=== PATIENT | female | born 1935 | race Caucasian/White ===

== ENCOUNTER 2018-07-16 09:58 | Observation (INO) | payer MEDICARE ==
[~2018-07-16] VITALS: Ht 157.5 cm; Wt 106.1 kg
[~2018-07-16 09:58] MED LIST: FOLIC ACID1 MG PO; FUROSEMIDE40 MG PO; HYDROXYCHLOROQ200 MG PO; LISINOPRIL10 MG PO; METHOTREXATE2.5 MG PO; NAPROXEN250 MG PO; ORENCIA125 MG/1 M SC; TRADJENTA5 MG PO; TRAMADOL100 MG; TRIAMCINOLONE A15 G1 SUBD; ULTRAM 50MG50 MG PO; Z.0.GABAPENTIN300 MG PO; Z.0.HYDROXYCHLOROQ20 PO; Z.0.LEVOTHYROXINE100 PO; Z.0.PANTOPRAZOLE SO4 PO; Z.0.SIMVASTATIN20 MG PO; Z.0.SPIRONOLACTONE25 PO; Z.1.TIZANIDINE HCL4 PO; [UNRECOGNIZED DRUG - OTHER]; [UNRECOGNIZED DRUG - OTHER] PO; [UNRECOGNIZED DRUG - OTHER] PO
--- OUTSIDE RECORDS SUMMARY | 2018-07-16 10:02 | XMS REPORT ---
Author Author Adonis Chan [facility] eClinicalWorks Address Unknown Phone Unavailable Care Team Providers Care Felt Tipping Machine Tender Name Role Phone Adonis Chan CP Unavailable Allergies No Known Allergies Problems Problem Type Condition Code Onset Dates Condition Status Problem Other senior living (current) drug therapy Z79.899 Active Problem Rheumatoid arthritis of multiple sites without rheumatoid factor M06.09 Active Problem Age-related osteoporosis without current pathological fracture M81.0 Active Problem Cervical radiculopathy at C7 M54.12 Active Problem Shortness of breath R06.02 Active Problem Primary osteoarthritis involving multiple joints M15.0 Active Problem Postmenopausal Z78.0 Active Problem Age related osteoporosis M81.0 Active Problem Low vitamin D level E55.9 Active Medications Medication Code System Code Instructions Start Date End Date Status Dosage ORENCIA SQ NDC 0 125MG SUBCUTANEOUSLY ONCE A WEEK Feb 23, 2017 Active 125MG Results No Known Results Summary Purpose eClinicalWorks Submission
--- OUTSIDE RECORDS SUMMARY | 2018-07-16 10:02 | XMS REPORT | Continuity of Care Document ---
Author Author [facility] Interface Address Unknown Phone Unavailable Problems Problem Status Onset Date Classification Date Reported Comments Source Age-related osteoporosis without current pathological fracture Active Problem 07/07/2018 Zoran Barton Other senior living drug therapy Active Problem 07/07/2018 Zoran Barton Rheumatoid arthritis of multiple sites without rheumatoid factor Active Problem 07/07/2018 Zoran Barton Cervical radiculopathy at C7 Active Problem 07/07/2018 Zoran Barton Shortness of breath Active Problem 07/07/2018 Zoran Barton Primary osteoarthritis involving multiple joints Active Problem 07/07/2018 Zoran Barton Postmenopausal Active Problem 07/07/2018 Zoran Barton Age related osteoporosis Active Problem 07/07/2018 Zoran Barton Low vitamin D level Active Problem 07/07/2018 Zoran Barton Trigger finger, right ring finger Active Problem 07/07/2018 Zoran Barton Trigger finger, right index finger Active Problem 07/07/2018 Zoran Barton Osteoporosis Active Problem 07/07/2018 Zoran Barton Medications Medication Details Route Status Patient Instructions Ordering Provider Order Date Source Folic Acid 1 tablet Orally Active 1MG Orally Once a day Dustin 03/24/2018 Zoran Barton Medrol 1 tablet with food or milk in the morning Orally Active 4 MG Orally Dustin 11/18/2017 Zoran Barton ORENCIA SQ 125mg SUBCUTANEOUSLY Active 125MG SUBCUTANEOUSLY ONCE A WEEK Dustin 07/26/2017 Zoran Barton Gabapentin 3 capsules Orally Active 300 MG Orally TWO times a day Dustin 06/29/2017 Zoran Barton Methotrexate 6 tablet Orally Active 2.5 MG Orally Once a week Dustin 06/27/2017 Zoran Barton ORENCIA SQ 125mg SUBCUTANEOUSLY Active 125MG SUBCUTANEOUSLY ONCE A WEEK Dustin 02/23/2017 Zoran Barton ORENCIA SQ 125MG SUBCUTANEOUSLY Active 125MG SUBCUTANEOUSLY ONCE A WEEK Barton 02/09/2017 Zoran Barton Folic Acid 1 tablet Orally Active 1 MG Orally Once a day Dustin 12/17/2016 Zoran Barton Methotrexate take 5 tablets Orally Active 2.5MG Orally ONCE A WEEK [place] 09/17/2016 Zoran Barton Vitamin D (Ergocalciferol) 1 capsule Orally Active 97811 UNIT Orally One a week Dustin 07/09/2016 Zoran Barton Gabapentin 3 capsules Orally Active 300 MG Orally TWO times a day [place] 04/05/2016 Zoran Barton ORENCIA SQ 125mg SUBCUTANEOUSLY Active 125MG SUBCUTANEOUSLY ONCE A WEEK Dustin 02/06/2016 Zoran Barton Furosemide 1 tablet NA Active 20 mg once a day Dustin Zoran Barton Pantoprazole Sodium 1 tablet NA Active 40mg once a day Dustin Zoran Barton Tizanidine HCl 1 tablet Orally Active 4mg Orally twice a day Dustin Zoran Barton Tramadol one tablet orally Active 50 mg orally needed Dustin Zoran Barton Prolia one NA Active 60 mg q 6 months Dustin Zoran Barton Levothyroxine Sodium 1 tablet every morning on an empty stomach Orally Active 100 MCG Orally Once a day Dustin Zoran Barton Simvastatin 1 tablet NA Active 40 mg once a day Dustin Zoran Barton Spironolactone 1 tablet NA Active 25mg once a day Dustin Zoran Barton Tradjenta 1 tablet Orally Active 5 MG Orally Once a day Dustin Zoran Barton Tizanidine HCl TAKE 1 TABLET BY MOUTH TWICE DAILY NA Active 4MG Zoran Barton Folic Acid 1 tablet Orally Active 1MG Orally Once a day Dustin Zoran Barton Gabapentin TAKE 3 CAPSULES BY MOUTH TWICE DAILY Orally Active 300MG Orally Twice a day Dustin Zoran Barton ORENCIA SQ 125mg SUBCUTANEOUSLY Active 125MG SUBCUTANEOUSLY ONCE A WEEK Dustin Zoran Barton Methotrexate 6 tablet Orally Active 2.5 MG Orally Once a week D[place] Zoran Barton Levothyroxine Sodium 1 tablet every morning on an empty stomach Orally Active 88 MCG Orally Once a day Dustin Zoran Barton Tramadol one tablet orally Active 50 mg orally needed Dustin Zoran Barton Gabapentin 3 capsules Orally Active 300 MG Orally TWO times a day Dustin Zoran Barton Allergies, Adverse Reactions, Alerts Substance Category Reaction Severity Reaction type Status Date Reported Comments Source Vicodin Adverse Reaction Info Not Available Adverse Reaction Active 04/26/2018 Zoran Barton Quinidine Sulfate Adverse Reaction hives Adverse Reaction Active 04/26/2018 Zoran Barton Azulfidine Adverse Reaction Info Not Available Adverse Reaction Active 04/26/2018 Zoran Barton Immunizations Immunization Date Given Site Status Last Updated Comments Source Results Order Name Results Value Reference Range Date Interpretation Comments Source Vital Signs Vital Sign Value Date Comments Source Weight 223.2 04/26/2018 Zoran Barton Height 61 04/26/2018 Zoran Barton Temperature Oral (F) 97.6 F 04/26/2018 Zoran Barton Heart Rate 64 04/26/2018 Zoran Barton Diastolic (mm Hg) 60 04/26/2018 Zoran Barton Systolic (mm Hg) 118 04/26/2018 Zoran Barton Weight 236.1 01/25/2018 Zoran Barton Height 61 01/25/2018 Zoran Barton Temperature Oral (F) 97.0 F 01/25/2018 Zoran Barton Heart Rate 70 01/25/2018 Zoran Barton Diastolic (mm Hg) 60 01/25/2018 Zoran Barton Systolic (mm Hg) 130 01/25/2018 Zoran Barton Weight 239 11/18/2017 Zoran Barton Height 61 11/18/2017 Zoran Barton Temperature Oral (F) 97.1 F 11/18/2017 Zoran Barton Heart Rate 72 11/18/2017 Zoran Barton Diastolic (mm Hg) 68 11/18/2017 Zoran Barton Systolic (mm Hg) 122 11/18/2017 Zoran Barton Weight 243.1 07/22/2017 Zoran Barton Height 61.5 07/22/2017 Zoran Barton Temperature Oral (F) 97.2 F 07/22/2017 Zoran Barton Heart Rate 74 07/22/2017 Zoran Barton Diastolic (mm Hg) 70 07/22/2017 Zoran Barton Systolic (mm Hg) 126 07/22/2017 Zoran Barton Weight 239.8 04/19/2017 Zoran Barton Height 62 04/19/2017 Zoran Barton Temperature Oral (F) 97.5 F 04/19/2017 Zoran Barton Heart Rate 70 04/19/2017 Zoran Barton Diastolic (mm Hg) 62 04/19/2017 Zoran Barton Systolic (mm Hg) 122 04/19/2017 Zoran Barton Weight 241 01/18/2017 Zoran Barton Height 61 01/18/2017 Zoran Barton Temperature Oral (F) 97.6 F 01/18/2017 Zoran Barton Heart Rate 68 01/18/2017 Zoran Barton Diastolic (mm Hg) 74 01/18/2017 Zoran Barton Systolic (mm Hg) 124 01/18/2017 Zoran Barton Encounters Location Location Details Encounter Type Encounter Number Reason For Visit Attending Provider ADM Date DC Date Status Source Procedures Procedure Code Date Perfomer Comments Source
--- OUTSIDE RECORDS SUMMARY | 2018-07-16 10:02 | XMS REPORT ---
Author Author Adonis Chan [facility] eClinicalWorks Address Unknown Phone Unavailable Care Team Providers Care Cargo Service Supervisor Name Role Phone Adonis Chan CP Unavailable Allergies No Known Allergies Problems Problem Type Condition Code Onset Dates Condition Status Problem Other correction (current) drug therapy Z79.899 Active Problem Primary osteoarthritis involving multiple joints M15.0 Active Problem Postmenopausal Z78.0 Active Assessment Rheumatoid arthritis of multiple sites without rheumatoid factor M06.09 Active Problem Rheumatoid arthritis of multiple sites without rheumatoid factor M06.09 Active Problem Trigger finger, right ring finger M65.341 Active Problem Shortness of breath R06.02 Active Problem Trigger finger, right index finger M65.321 Active Problem Age related osteoporosis M81.0 Active Problem Low vitamin D level E55.9 Active Problem Age-related osteoporosis without current pathological fracture M81.0 Active Problem Cervical radiculopathy at C7 M54.12 Active Medications Medication Code System Code Instructions Start Date End Date Status Dosage Folic Acid [facility] 39737910250 1MG Orally Once a day Active 1 tablet Gabapentin [facility] 94469141753 300MG Orally Twice a day Active TAKE 3 CAPSULES BY MOUTH TWICE DAILY Results No Known Results Summary Purpose eClinicalWorks Submission
--- OUTSIDE RECORDS SUMMARY | 2018-07-16 10:02 | XMS REPORT ---
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
--- OUTSIDE RECORDS SUMMARY | 2018-07-16 10:02 | XMS REPORT ---
Author Author Gunner Barton Organization eClinicalWorks Address Unknown Phone Unavailable Care Team Providers Care Accountant Bookkeeper Name Role Phone Gunner Barton CP Unavailable Allergies No Known Allergies Problems Problem Type Condition Code Onset Dates Condition Status Problem Postmenopausal Z78.0 Active Problem Low vitamin D level E55.9 Active Problem Primary osteoarthritis involving multiple joints M15.0 Active Problem Rheumatoid arthritis of multiple sites without rheumatoid factor M06.09 Active Problem Other jail (current) drug therapy Z79.899 Active Problem Trigger finger, right index finger M65.321 Active Problem Trigger finger, right ring finger M65.341 Active Problem Osteoporosis M81.0 Active Problem Cervical radiculopathy at C7 M54.12 Active Problem Age related osteoporosis M81.0 Active Problem Shortness of breath R06.02 Active Problem Age-related osteoporosis without current pathological fracture M81.0 Active Medications No Known Medications Results No Known Results Summary Purpose eClinicalWorks Submission
--- OUTSIDE RECORDS SUMMARY | 2018-07-16 10:02 | XMS REPORT ---
Author Author Adonis Chan [facility] eClinicalWorks Address Unknown Phone Unavailable Care Team Providers Care Loan Representative Name Role Phone Adonis Chan Unavailable Allergies, Adverse Reactions, Alerts Substance Reaction Event Type Vicodin Info Not Available Drug Allergy Quinidine Sulfate hives Drug Allergy Azulfidine Info Not Available Drug Allergy Problems Problem Type Condition Code Onset Dates Condition Status Problem Postmenopausal Z78.0 Active Problem Low vitamin D level E55.9 Active Problem Primary osteoarthritis involving multiple joints M15.0 Active Problem Trigger finger, right index finger M65.321 Active Problem Trigger finger, right ring finger M65.341 Active Problem Osteoporosis M81.0 Active Problem Cervical radiculopathy at C7 M54.12 Active Problem Age related osteoporosis M81.0 Active Problem Shortness of breath R06.02 Active Problem Age-related osteoporosis without current pathological fracture M81.0 Active Assessment Rheumatoid arthritis of multiple sites without rheumatoid factor M06.09 Active Assessment Osteoporosis M81.0 Active Problem Rheumatoid arthritis of multiple sites without rheumatoid factor M06.09 Active Assessment Other [facility] (current) drug therapy Z79.899 Active Problem Other [facility] (current) drug therapy Z79.899 Active Medications Medication Code System Code Instructions Start Date End Date Status Dosage Tizanidine HCl [facility] 65208315954 4MG Active TAKE 1 TABLET BY MOUTH TWICE DAILY Levothyroxine Sodium ND 88432421337 100 MCG Orally Once a day Active 1 tablet every morning on an empty stomach Folic Acid ND 87809633356 1MG Orally Once a day Active 1 tablet Gabapentin ND 41368993938 300MG Orally Twice a day Active TAKE 3 CAPSULES BY MOUTH TWICE DAILY ORENCIA SQ NDC 0 125MG SUBCUTANEOUSLY ONCE A WEEK Active 125mg Simvastatin ND 90296311592 40 mg once a day Active 1 tablet Spironolactone ND 61731893436 25mg once a day Active 1 tablet Furosemide ND 93890523033 20 mg once a day Active 1 tablet Tradjenta [facility] 52474684834 5 MG Orally Once a day Active 1 tablet Methotrexate [facility] 75302614699 2.5 MG Orally Once a week Active 6 tablet Pantoprazole Sodium [facility] 04823875289 40mg once a day Active 1 tablet Prolia [facility] 71752423790 60 mg q 6 months Active one Tramadol NDC 0 50 mg orally needed Active one tablet Vital Signs Date/Time: Jan 25, 2018 BMI 44.61 Index Weight 236.1 lbs Height 61 in Temperature 97.0 F Cardiac Monitoring Heart Rate 70 /min Blood Pressure Diastolic 60 mm Hg Blood Pressure Systolic 130 mm Hg Results No Known Results Summary Purpose eClinicalWorks Submission
--- OUTSIDE RECORDS SUMMARY | 2018-07-16 10:02 | XMS REPORT ---
Author Author Adonis Chan [facility] eClinicalWorks Address Unknown Phone Unavailable Care Team Providers Care Electrical Design Technologist Name Role Phone Adonis Chan CP Unavailable Allergies No Known Allergies Problems Problem Type Condition Code Onset Dates Condition Status Problem Other care home (current) drug therapy Z79.899 Active Problem Rheumatoid [...] Date End Date Status Dosage Tizanidine HCl [facility] 68886641400 4mg Orally twice a day Active 1 tablet Results No Known Results Summary Purpose eClinicalWorks Submission
--- OUTSIDE RECORDS SUMMARY | 2018-07-16 10:02 | XMS REPORT ---
Author Author Adonis Chan [facility] eClinicalWorks Address Unknown Phone Unavailable Care Team Providers Care Group Therapy Counselor Name Role Phone Adonis Chan CP Unavailable Allergies No Known Allergies Problems Problem Type Condition Code Onset Dates Condition Status Problem Other assisted (current) drug therapy Z79.899 Active Problem Rheumatoid [...] NDC 0 125MG SUBCUTANEOUSLY ONCE A WEEK July 26, 2017 Active 125mg Results No Known Results Summary Purpose eClinicalWorks Submission
--- OUTSIDE RECORDS SUMMARY | 2018-07-16 10:02 | XMS REPORT ---
Author Author Gunner Barton Organization eClinicalWorks Address Unknown Phone Unavailable Care Team Providers Care Registered Dental Assistant Name Role Phone Gunner Barton CP Unavailable Allergies No Known Allergies Problems Problem Type Condition Code Onset Dates Condition Status Problem Postmenopausal Z78.0 Active Problem Low vitamin D level E55.9 Active Problem Primary osteoarthritis involving multiple joints M15.0 Active Problem Rheumatoid arthritis of multiple sites without rheumatoid factor M06.09 Active Problem Other skilled nursing (current) drug therapy Z79.899 Active Problem Trigger [...]
--- OUTSIDE RECORDS SUMMARY | 2018-07-16 10:02 | XMS REPORT ---
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
--- OUTSIDE RECORDS SUMMARY | 2018-07-16 10:02 | XMS REPORT ---
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
--- OUTSIDE RECORDS SUMMARY | 2018-07-16 10:02 | XMS REPORT ---
Author Author Adonis Chan [facility] eClinicalWorks Address Unknown Phone Unavailable Care Team Providers Care Loan Processing Supervisor Name Role Phone Adonis Chan Unavailable Allergies, Adverse Reactions, Alerts Substance Reaction Event Type Vicodin Info Not Available Drug Allergy Quinidine Sulfate hives Drug Allergy Azulfidine Info Not Available Drug Allergy Problems Problem Type Condition Code Onset Dates Condition Status Assessment Age-related osteoporosis without current pathological fracture M81.0 Active Problem Other [facility] (current[facility] drug therapy Z79.899 Active Problem Rheumatoid arthritis of multiple sites without rheumatoid factor M06.09 Active Assessment Rheumatoid arthritis of multiple sites [...] Instructions Start Date End Date Status Dosage Methotrexate [facility] 76202729998 2.5 MG Orally Once a week June 27, 2017 Active 6 tablet Tizanidine HCl ND 24207188029 4mg Orally twice a day Active 1 tablet Pantoprazole Sodium ND 89466139080 40mg once a day Active 1 tablet Tradjenta ND 28104232168 5 MG Orally Once a day Active 1 tablet Tramadol NDC 0 50 mg orally needed Active one tablet Prolia ND 51367729657 60 mg q 6 months Active one Furosemide ND 51636312074 20 mg once a day Active 1 tablet Simvastatin ND 95504744581 40 mg once a day Active 1 tablet Folic Acid ND 15306094157 1 MG Orally Once a day Dec 17, 2016 Active 1 tablet Levothyroxine Sodium ND 36517526480 100 MCG Orally Once a day Active 1 tablet every morning on an empty stomach ORENCIA SQ NDC 0 125MG SUBCUTANEOUSLY ONCE A WEEK Feb 23, 2017 Active 125mg Gabapentin [facility] 92763394584 300 MG Orally TWO times a day June 29, 2017 Active [address] [facility] 16499047426 25mg once a day Active 1 tablet Vital Signs Date/Time: July 22, 2017 BMI 45.18 Index Weight 243.1 lbs Height 61.5 in Temperature 97.2 F Cardiac Monitoring Heart Rate 74 /min Blood Pressure Diastolic 70 mm Hg Blood Pressure Systolic 126 mm Hg Results No Known Results Summary Purpose eClinicalWorks Submission
--- OUTSIDE RECORDS SUMMARY | 2018-07-16 10:02 | XMS REPORT ---
Author Author Adonis Chan [facility] eClinicalWorks Address Unknown Phone Unavailable Care Team Providers Care Pt Skilled Name Role Phone Adonis Chan CP Unavailable Allergies No Known Allergies Problems Problem Type Condition Code Onset Dates Condition Status Problem Other correction (current) drug therapy Z79.899 Active Problem Rheumatoid [...]
--- OUTSIDE RECORDS SUMMARY | 2018-07-16 10:02 | XMS REPORT ---
Author Author Adonis Chan [facility] eClinicalWorks Address Unknown Phone Unavailable Care Team Providers Care Heel Scourer Name Role Phone Adonis Chan Unavailable Allergies, Adverse Reactions, Alerts Substance Reaction Event Type Vicodin Info Not Available Drug Allergy Quinidine Sulfate hives Drug Allergy Azulfidine Info Not Available Drug Allergy Problems Problem Type Condition Code Onset Dates Condition Status Assessment Age-related osteoporosis without current pathological fracture M81.0 Active Problem Other residential (current) drug therapy Z79.899 Active Problem Rheumatoid arthritis of multiple sites without rheumatoid factor M06.09 Active Problem Age-related osteoporosis without current pathological fracture M81.0 Active Problem Cervical radiculopathy at C7 M54.12 Active Problem Shortness of breath R06.02 Active Problem Primary osteoarthritis involving multiple joints M15.0 Active Problem Postmenopausal Z78.0 Active Problem Age related osteoporosis M81.0 Active Problem Low vitamin D level E55.9 Active Assessment Shortness of breath R06.02 Active Assessment Other residential (current) drug therapy Z79.899 Active Assessment Rheumatoid arthritis of multiple sites without rheumatoid factor M06.09 Active Medications Medication Code System Code Instructions Start Date End Date Status Dosage ORENCIA SQ NDC 0 125MG SUBCUTANEOUSLY ONCE A WEEK Feb 06, 2016 Active 125mg Furosemide ND 29726799483 20 mg once a day Active 1 tablet Pantoprazole Sodium ND 18716263706 40mg once a day Active 1 tablet Tizanidine HCl ND 66296512478 4mg twice a day Active 1 tablets Tramadol NDC 0 50 mg orally needed Active one tab Methotrexate ND 28515163070 2.5MG Orally ONCE A WEEK September 17, 2016 Active take 5 tablets Prolia ND 10890284427 60 mg q 6 months Active one Levothyroxine Sodium ND 18628563384 100 MCG Orally Once a day Active 1 tablet every morning on an empty stomach Simvastatin ND 29395721743 40 mg once a day Active 1 tablet Spironolactone ND 99362282091 25mg once a day Active 1 tablet Tradjenta [facility] 49756675298 5 MG Orally Once a day Active 1 tablet Gabapentin [facility] 23099320060 300 MG Orally TWO times a day Apr 05, 2016 Active 3 capsules Folic Acid [facility] 08538351007 1 MG Orally Once a day Dec 17, 2016 Active 1 tablet Vitamin D (Ergocalciferol) [facility] 17480393235 96483 UNIT Orally One a week July 09, 2016 Active 1 capsule Vital Signs Date/Time: Jan 18, 2017 BMI 45.53 Index Weight 241 lbs Height 61 in Temperature 97.6 F Cardiac Monitoring Heart Rate 68 /min Blood Pressure Diastolic 74 mm Hg Blood Pressure Systolic 124 mm Hg Results No Known Results Summary Purpose eClinicalWorks Submission
--- OUTSIDE RECORDS SUMMARY | 2018-07-16 10:02 | XMS REPORT ---
Author Author Adonis Chan [facility] eClinicalWorks Address Unknown Phone Unavailable Care Team Providers Care Cone Runner Name Role Phone Adonis Chan CP Unavailable Allergies No Known Allergies Problems Problem Type Condition Code Onset Dates Condition Status Problem Other [facility] (current) [...] Instructions Start Date End Date Status Dosage Gabapentin [facility] 76410463293 300 MG Orally TWO times a day June 29, 2017 Active 3 capsules Results No Known Results Summary Purpose eClinicalWorks Submission
--- OUTSIDE RECORDS SUMMARY | 2018-07-16 10:02 | XMS REPORT ---
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
--- OUTSIDE RECORDS SUMMARY | 2018-07-16 10:02 | XMS REPORT ---
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
--- OUTSIDE RECORDS SUMMARY | 2018-07-16 10:02 | XMS REPORT ---
Author Author Adonis Chan Organization [employer] Address Unknown Phone Unavailable Care Team Providers Care Manager Strategic Alliances Name Role Phone Adonis Chan CP Unavailable Allergies No Known Allergies Problems Problem Type Condition Code Onset Dates Condition Status Assessment Rheumatoid arthritis of multiple sites without rheumatoid factor M06.09 Active Problem Other [facility] (current) drug therapy Z79.899 Active Problem Rheumatoid [...] Start Date End Date Status Dosage Methotrexate [facility] 2] 67495165017 2.5 MG Orally Once a week June 27, 2017 Active 6 tablet Gabapentin [facility] [place]NOTE 2] 25748623814 300 MG Orally TWO times a day June 29, 2017 Active 3 capsules Results No Known Results Summary Purpose eClinicalWorks Submission
--- OUTSIDE RECORDS SUMMARY | 2018-07-16 10:02 | XMS REPORT ---
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
--- OUTSIDE RECORDS SUMMARY | 2018-07-16 10:02 | XMS REPORT ---
Author Author Adonis Chan [facility] [employer] Address Unknown Phone Unavailable Care Team Providers Care Salt Washer Name Role Phone Adonis Chan Unavailable Allergies, Adverse Reactions, Alerts Substance Reaction Event Type Vicodin Info Not Available Drug Allergy Quinidine Sulfate hives Drug Allergy Azulfidine Info Not Available Drug Allergy Problems Problem Type Condition Code Onset Dates Condition Status Problem Other jail (current) drug therapy Z79.899 Active Problem Primary osteoarthritis involving multiple joints M15.0 Active Problem Postmenopausal Z78.0 Active Problem Trigger finger, right ring finger M65.341 Active Problem Shortness of breath R06.02 Active Problem Trigger finger, right index finger M65.321 Active Problem Age related osteoporosis M81.0 Active Problem Low vitamin D level E55.9 Active Problem Age-related osteoporosis without current pathological fracture M81.0 Active Problem Cervical radiculopathy at C7 M54.12 Active Assessment Age related osteoporosis M81.0 Active Assessment 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 treater (current) drug therapy Z79.899 Active Assessment Trigger finger, right ring finger M65.341 Active Assessment Rheumatoid arthritis of multiple sites without rheumatoid factor M06.09 Active Assessment Trigger finger, right index finger M65.321 Active Problem Rheumatoid arthritis of multiple sites without rheumatoid factor M06.09 Active Medications Medication Code System Code Instructions Start Date End Date Status Dosage Folic Acid [facility] 22577777364 1MG Active TAKE ONE TABLET BY MOUTH ONCE DAILY Levothyroxine Sodium ND 51008183230 100 MCG Orally Once a day Active 1 tablet every morning on an empty stomach Furosemide ND 56201146810 20 mg once a day Active 1 tablet Spironolactone ND 26798916009 25mg once a day Active 1 tablet Prolia ND 96892147216 60 mg q 6 months Active one Simvastatin ND 97705840845 40 mg once a day Active 1 tablet Pantoprazole Sodium ND 74365614200 40mg once a day Active 1 tablet Tizanidine HCl [facility] 82490448278 4MG Active TAKE 1 TABLET BY MOUTH TWICE DAILY Tradjenta [facility] 08665471192 5 MG Orally Once a day Active 1 tablet Tramadol NDC 0 50 mg orally needed Active one tablet ORENCIA SQ NDC 0 125MG SUBCUTANEOUSLY ONCE A WEEK Active 125mg Medrol [facility] 70026911228 4 MG Orally Nov 18, 2017 Dec 18, 2017 Active 1 tablet with food or milk in the morning Methotrexate [facility] 76406454563 2.5 MG Orally Once a week Active 6 tablet Gabapentin [facility] 67890290279 300 MG Orally TWO times a day Active 3 capsules Vital Signs Date/Time: Nov 18, 2017 BMI 45.15 Index Weight 239 lbs Height 61 in Temperature 97.1 F Cardiac Monitoring Heart Rate 72 /min Blood Pressure Diastolic 68 mm Hg Blood Pressure Systolic 122 mm Hg Results Name Result Date Reference Range Unit Abnormality Flag COMPREHENSIVE METABOLIC PANEL W/EGFR ----CALCIUM 9.4 20171118 8.6-10.4 mg/dL N ----CARBON DIOXIDE 28 20171118 20-32 mmol/L N ----ALT 17 20171118 6-29 U/L N ----CREATININE 1.06 20171118 0.60-0.88 mg/dL H ----AST 16 20171118 10-35 U/L N ----eGFR NON-AFR. [place] 49 20171118 > OR=60 mL/min/1.73m2 L ----ALKALINE PHOSPHATASE 69 20171118 33-130 U/L N ----eGFR 57 20171118 > OR=60 mL/min/1.73m2 L ----BILIRUBIN, TOTAL 0.6 20171118 0.2-1.2 mg/dL N ----BUN/CREATININE RATIO 25 20171118 6-22 (calc) H ----ALBUMIN/GLOBULIN RATIO 1.5 20171118 1.0-2.5 (calc) N ----SODIUM 141 20171118 135-146 mmol/L N ----GLOBULIN 2.7 20171118 1.9-3.7 g/dL (calc) N ----POTASSIUM 4.4 20171118 3.5-5.3 mmol/L N ----GLUCOSE 96 20171118 65-99 mg/dL N ----CHLORIDE 103 20171118 98-110 mmol/L N ----ALBUMIN 4.0 20171118 3.6-5.1 g/dL N ----UREA NITROGEN (BUN) 26 20171118 7-25 mg/dL H ----PROTEIN, TOTAL 6.7 20171118 6.1-8.1 g/dL N SED RATE BY MODIFIED WESTERGREN ----SED RATE BY MODIFIED WESTERGREN 38 20171118 < OR=30 mm/h H C-REACTIVE PROTEIN ----C-REACTIVE PROTEIN 6.2 20171118 <8.0 mg/L N CBC (INCLUDES DIFF/PLT) ----MCHC 33.7 79990757 32.0-36.0 g/dL N ----MCH 33.0 20171118 27.0-33.0 pg N ----PLATELET COUNT 185 20171118 140-400 Thousand/uL N ----RDW 13.1 [id number] 11.0-15.0 % N ----BASOPHILS 0.3 20171118 % N ----ABSOLUTE NEUTROPHILS 3750 07643836 7282-1615 cells/uL N ----ABSOLUTE LYMPHOCYTES 1698 20171118 850-3900 cells/uL N ----MPV 10.6 26084836 7.5-12.5 fL N ----ABSOLUTE BASOPHILS 18 20171118 0-200 cells/uL N ----HEMATOCRIT 36.8 46247955 35.0-45.0 % N ----NEUTROPHILS 62.5 20171118 % N ----MCV 97.9 93688123 80.0-100.0 fL N ----RED BLOOD CELL COUNT 3.76 27622535 3.80-5.10 Million/uL L ----ABSOLUTE MONOCYTES 432 20171118 200-950 cells/uL N ----ABSOLUTE EOSINOPHILS 102 20171118 15-500 cells/uL N ----HEMOGLOBIN 12.4 68231370 11.7-15.5 g/dL N ----EOSINOPHILS 1.7 32815507 % N ----WHITE BLOOD CELL COUNT 6.0 24510934 3.8-10.8 Thousand/uL N ----LYMPHOCYTES 28.3 02306710 % N ----MONOCYTES 7.2 20171118 % N VITAMIN D, 25-HYDROXY, LC/MS/MS ----VITAMIN D, 25-OH, TOTAL 51 20171118 30-100 ng/mL N Summary Purpose eClinicalWorks Submission
--- OUTSIDE RECORDS SUMMARY | 2018-07-16 10:02 | XMS REPORT ---
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
--- OUTSIDE RECORDS SUMMARY | 2018-07-16 10:02 | XMS REPORT ---
Author Gunner Woodall [facility] eClinicalWorks Address Unknown Phone Unavailable Care Team Providers Care Loft Worker Name Role Phone Gunner Barton CP Unavailable Allergies, Adverse Reactions, Alerts Substance Reaction Event Type Vicodin Info Not Available Drug Allergy Quinidine Sulfate hives Drug Allergy Azulfidine Info Not Available Drug Allergy Problems Problem Type Condition Code Onset Dates Condition Status Assessment Rheumatoid arthritis of multiple sites without rheumatoid factor M06.09 Active Problem Other [facility] (current) drug therapy Z79.899 Active Problem Rheumatoid [...] Low vitamin D level E55.9 Active Assessment Low vitamin D level E55.9 Active Assessment Other [facility] (current) drug therapy Z79.899 Active Assessment Primary osteoarthritis involving multiple joints M15.0 Active Assessment Age related osteoporosis M81.0 Active Medications Medication Code System Code Instructions Start Date End Date Status Dosage ORENCIA SQ NDC 0 125MG SUBCUTANEOUSLY ONCE A WEEK Feb 23, 2017 Active 125MG Prolia [facility] 22746156723 60 mg q 6 months Active one Spironolactone ND 26560744545 25mg once a day Active 1 tablet Folic Acid ND 12069102725 1 MG Orally Once a day Dec 17, 2016 Active 1 tablet Furosemide ND 28083822066 20 mg once a day Active 1 tablet Methotrexate ND 45047094221 2.5MG Orally ONCE A WEEK September 17, 2016 Active take 5 tablets Gabapentin ND 70202479471 300 MG Orally TWO times a day Apr 05, 2016 Active 3 capsules Simvastatin ND 07530572680 40 mg once a day Active 1 tablet Pantoprazole Sodium ND 92640135098 40mg once a day Active 1 tablet Levothyroxine Sodium NDC 34344376387 100 MCG Orally Once a day Active 1 tablet every morning on an empty stomach Tramadol NDC 0 50 mg orally needed Active one tablet Tradjenta [facility] 41798395274 5 MG Orally Once a day Active 1 tablet Tizanidine HCl [facility] 26373252371 4mg twice a day Active 1 tablet Vital Signs Date/Time: Apr 19, 2017 BMI 43.86 Index Weight 239.8 lbs Height 62 in Temperature 97.5 F Cardiac Monitoring Heart Rate 70 /min Blood Pressure Diastolic 62 mm Hg Blood Pressure Systolic 122 mm Hg Results No Known Results Summary Purpose eClinicalWorks Submission
--- OUTSIDE RECORDS SUMMARY | 2018-07-16 10:02 | XMS REPORT ---
Author Author Adonis Chan [facility] eClinicalWorks Address Unknown Phone Unavailable Care Team Providers Care Public Service Representative Name Role Phone Adonis Chan Unavailable [...] sites without rheumatoid factor M06.09 Active Assessment Age-related osteoporosis without current pathological fracture M81.0 Active Problem Rheumatoid arthritis of multiple sites without rheumatoid factor M06.09 Active Assessment Other intermodal dispatcher (current) drug therapy Z79.899 Active Problem Other long-term (current) drug therapy Z79.899 Active Medications Medication Code System Code Instructions Start Date End Date Status Dosage Methotrexate [facility] 79823843439 2.5 MG Orally Once a week Active 6 tablet Simvastatin ND 38604776666 40 mg once a day Active 1 tablet Tradjenta ND 92479030612 5 MG Orally Once a day Active 1 tablet Gabapentin ND 70351489190 300MG Orally Twice a day Active TAKE 3 CAPSULES BY MOUTH TWICE DAILY ORENCIA SQ NDC 0 125MG SUBCUTANEOUSLY ONCE A WEEK Active 125mg Levothyroxine Sodium ND 70194837891 88 MCG Orally Once a day Active 1 tablet every morning on an empty stomach Spironolactone ND 89429554344 25mg once a day Active 1 tablet Prolia [facility] 92614893747 60 mg q 6 months Active one Tizanidine HCl [facility] [place] 97079840178 4MG Active TAKE 1 TABLET BY MOUTH TWICE DAILY Tramadol [facility] [place] 27048522816 50 mg orally needed Active one tablet Pantoprazole Sodium [facility] [place] 45148985238 40mg once a day Active 1 tablet Folic Acid [facility] 67470739281 1MG Orally Once a day Active 1 tablet Furosemide [facility] 80804636182 20 mg once a day Active 1 tablet Vital Signs Date/Time: Apr 26, 2018 BMI 42.17 Index Weight 223.2 lbs Height 61 in Temperature 97.6 F Cardiac Monitoring Heart Rate 64 /min Blood Pressure Diastolic 60 mm Hg Blood Pressure Systolic 118 mm Hg Results No Known Results Summary Purpose eClinicalWorks Submission
--- OUTSIDE RECORDS SUMMARY | 2018-07-16 10:03 | XMS REPORT ---
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
--- OUTSIDE RECORDS SUMMARY | 2018-07-16 10:03 | XMS REPORT ---
Author Author Adonis Chan Organization [employer] Address Unknown Phone Unavailable Care Team Providers Care Analytical Engineer Name Role Phone Adonis Chan CP Unavailable [...] without current pathological fracture M81.0 Active Medications Medication Code System Code Instructions Start Date End Date Status Dosage Folic Acid [facility] 60553375501 1MG Orally Once a day Mar 24, 2018 Active 1 tablet Results No Known Results Summary Purpose eClinicalWorks Submission
[2018-07-16] MEDS ORDERED: KETOROLAC TROMETHAMINE 30 MG/ML VIAL IM NR (11:00)
[2018-07-16] MEDS ORDERED: PREDNISONE 20 MG TAB PO NR (11:00)
[2018-07-16] MEDS: MORPHINE SULFATE INJ 4 MG/ML INJ 1ML IM PRN ×2 (11:32→23:54)
[2018-07-16 11:45] LABS: BASOPHILS % 0.1 % (0.0-1.0); EOSINOPHILS # (AUTO) 0.1 (0.0-0.4); EOSINOPHILS % 1.8 % (0.0-6.0); HEMATOCRIT 35.5 % (34.2-44.1); HEMOGLOBIN 11.8 g/dL (12.0-16.0); LYMPHOCYTES # (AUTO) 1.4 (1.0-3.2); LYMPHOCYTES % 19.6 % (18.0-39.1); MEAN CORPUSCULAR HEMOGLOBIN 33.5 pg (28-32); MEAN CORPUSCULAR HGB CONC 33.2 g/dL (31-35); MEAN CORPUSCULAR VOLUME 100.9 fL (81-99); MONOCYTES # (AUTO) 0.6 (0.2-0.8); MONOCYTES % 8.6 % (4.4-11.3); NEUTROPHILS # (AUTO) 4.9 (2.1-6.9); NEUTROPHILS % 69.5 % (38.7-80.0); PLATELET COUNT 173 x10e3/uL (140-360); RED BLOOD COUNT 3.52 x10e6/uL (3.6-5.1); RED CELL DISTRIBUTION WIDTH 13.7 % (11.7-14.4)
[2018-07-16 12:04] LABS: ALBUMIN 3.4 g/dL (3.5-5.0); ALBUMIN/GLOBULIN RATIO 0.9 (0.8-2.0); CALCIUM 10.2 mg/dL (8.4-10.2); CREATININE, SERUM 0.96 mg/dL (0.57-1.11)
--- NOTE | 2018-07-16 12:32 | Diagnostic Imaging Report ---
RIGHT HAND X-RAY - 3 VIEWS HISTORY: ^SWELLING AND PAIN ^[id number] ^[id number] COMPARISON: None available. FINDINGS: Bones: No acute displaced fracture. Osseous alignment is within normal limits. Joints: Moderate to severe degenerative changes with subcortical cysts including there are right first intracarpal focal lesion and carpometacarpal joint and most of the carpal joints. Mild degenerative changes of the mid and distal interphalangeal joints. No cortical erosions. Soft tissues: There appears to be diffuse soft tissue swelling in the right hilum. IMPRESSION: No acute radiographic abnormality. Extensive degenerative changes in the right hand. No cortical erosions. Signed by: Dr. Haylee Redding M.D. on 07/16/2018 12:29 PM
[2018-07-16] MEDS ORDERED: DEXTROSE 50% SYRINGE 50 ML IV PRN (13:00)
[2018-07-16] MEDS ORDERED: ONDANSETRON HCL INJ 2MG/ML 2ML 2 MG/ML VIAL IV PRN (13:00)
[2018-07-16] MEDS ORDERED: SODIUM CHLORIDE FLUSH 10 ML SYR INJ PRN (13:00)
--- NOTE | 2018-07-16 13:00 | NUR ---
H&P cc: right hand pain/swelling/redness HPI: 82yoF, PCP Dr.Bo. Coppola, developed right hand redness/swelling/pain about 1 day after having nerve conduction studies by neurology. Pt describes painful right hand. Left hand did not develop symptoms. No chills/sweats. Pt does have DM. PMH: CKD3 due to DM2, Diabetic neuropathy, HTN, Hypothyroidism, B/L neuropathy of hands, Rheumatoid arthritis, RCC s/p left nephrectomy 2004, breast cancer 199 9 s/p left mastectomy, nephrolithiasis pSHx: b/l knee replacement, cholecystectomy, nephrectomy (L), left mastectomy, tonsillectomy, appendectomy allergies; see emr FH/SH: no illilcits/etoh/cis Meds; see mar ROS: no f/c/s/N/V/D/KENT/vision change/cp/sob/dizziness/vision changes/skin rash. v/s; revd PE tired appearing anicteric ns1s2 mod bs soft nt nd right hand with erythema/2-3+edema/tenderness/warmth labs/med;s revd A/P: 82yoF Right hand cellulitis Uncontrolled HTN CKD3 due to DM2, DM-neuropathy Hypothyroidism RA PLAN iv abx lipid/hba1c MRI to further eval after d/w Cont home meds Toño Rizo MD, PhD.
--- OUTSIDE RECORDS SUMMARY | 2018-07-16 13:13 | XMS REPORT ---
Author Author [facility] Address Unknown Phone Unavailable Care Team Providers Care Casing Worker Name Role Phone Christian ISRAEL Unavailable Unavailable Problems This patient has no known problems. Allergies, Adverse Reactions, Alerts This patient has no known allergies or adverse reactions. Medications This patient has no known medications. Results Test Description Test Time Test Comments Text Results Atomic Results Result Comments HAND 3+ VIEWS RIGHT 2018-07-16 12:27:00 [place] [address] Patient Name: PARTH MARTINEZ MR #: [id number] : 1935 Age/Sex: 82/F Req #: [id number] [facility] Physician: Ordered by: RADHA ISRAEL MD Report #: [id number] Location: ER Room/Bed: Procedure: [id number] DX/HAND 3+ VIEWS RIGHT Exam Date: 07/16/18 Exam Time: 1134 REPORT STATUS: Signed RIGHT HAND X-RAY - 3 VIEWS HISTORY: SWELLING AND PAIN [id number] COMPARISON: None available. FINDINGS: Bones: No acute displaced fracture. Osseous alignment is within normal limits. Joints: Moderate to severe degenerative changes with subcortical cysts including there are right first intracarpal focal lesion and carpometacarpal joint and most of the carpal joints. Mild degenerative changes of the mid and distal interphalangeal joints. No cortical erosions. Soft tissues: There appears to be diffuse soft tissue swelling in the right hilum. IMPRESSION: No acute radiographic abnormality. Extensive degenerative changes in the right hand. No cortical erosions. Signed by: Dr. Sujey Redding M.D. on 07/16/2018 12:29 PM Dictated By: SUJEY REDDING MD [id number] Transcribed By: DOMINGO on 07/16/189 COPY TO: RADHA ISRAEL MD
[2018-07-16 13:43] LABS: CHOL/HDL RATIO 2.4 (3.0-3.6)
[2018-07-16 13:56] VITALS: BP 146/69
[2018-07-16] MEDS ORDERED: CEFAZOLIN SOD 1 GM VIAL IV SCH (14:00)
[2018-07-16] MEDS: GABAPENTIN 300 MG CAP PO SCH (14:00)
--- NOTE | 2018-07-16 14:25 | NUR ---
REC'D PT FROM ER VIA STRETCHER ON RA. NO S/S OF DISTRESS. IV TO THE R FA 22 GAUGE, LIMB ALERT TO THE LEFT ARM DUE TO L RADICAL MASTECTOMY. PT TRANSFERRED PT FROM STRETCHER TO BED WITH ASSISTANCE. SIDE RAILS UP X2, BED IN LOWEST POSITION, AND CALL FLOWERS WITHIN REACH
[2018-07-16 15:06] VITALS: BP 146/69
[2018-07-16] MEDS ORDERED: NAPROXEN250 MG PO (15:38)
[2018-07-16] MEDS: INSULIN REGULAR, HUMAN 100 UNIT/1 ML 3ML VIAL SQ SCH ×2 (15:47→21:00)
[2018-07-16 15:54] VITALS: BP 146/69
[2018-07-16] MEDS ORDERED: SODIUM CHLORIDE 0.9% 250ML 250 ML ONE (16:15)
[2018-07-16] MEDS: HYDROXYCHLOROQUINE SULFATE 200 MG TAB PO SCH (16:41)
[2018-07-16] MEDS: CEFAZOLIN SOD 1 GM/NS 50ML 50 ML IV SCH ×2 (16:59→22:00)
--- NOTE | 2018-07-16 17:00 | NUR ---
ASSISTED PT TO THE RECLINER CHAIR. PLACED PILLOW UNDERNEATH RIGHT ARM FOR HAND SUPPORT DUE TO EDEMA. ANTIBIOTICS RUNNING. NO S/S OF DISTRESS. CALL FLOWERS PLACED WITHIN REACH
--- NOTE | 2018-07-16 18:00 | NUR ---
PT IS RESTING ON RECLINER CHAIR WATCHING TV. PT IS ON RA AND NO S/S OF DISTRESS. CALL FLOWERS WITHIN REACH.
--- NOTE | 2018-07-16 18:25 | NUR ---
PT REPORTED PAIN LEVEL OF 7/10 ON R HAND. PT REFUSED PAIN MEDICATION. WILL CON'T TO MONITOR.
--- NOTE | 2018-07-16 20:17 | NUR ---
RECEIVED PT SITTING ON THE CHAIR .RT HAND RED AND SWOLLEN .RESPIRATIONS ARE EVEN AND UNLABORED .CALL LIGHT WITH IN REACH .CONTINUE TO MONITOR
[2018-07-16 20:25] VITALS: BP 146/69
[2018-07-16 20:27] VITALS: BP 161/77
[2018-07-17] VITALS (7 sets, daily range): BP systolic 113–169; BP diastolic 54–78
[2018-07-17] MEDS: GABAPENTIN 300 MG CAP PO SCH ×2 (01:00→14:45)
[2018-07-17] MEDS: CEFAZOLIN SOD 1 GM/NS 50ML 50 ML IV SCH ×3 (06:00→22:48)
[2018-07-17] MEDS: LEVOTHYROXINE SODIUM 100 MCG TAB PO SCH (06:14)
[2018-07-17 06:15] LABS: ANION GAP 10.8 mmol/L (8-16); CALCIUM 9.6 mg/dL (8.4-10.2); CREATININE, SERUM 0.91 mg/dL (0.57-1.11); POTASSIUM 3.8 mmol/L (3.5-5.1)
--- NOTE | 2018-07-17 06:16 | NUR ---
PT RESTING .PT C/O PAIN AND GIVEN MORPHINE X1 .NO ACUTE DISTRESS NOTED .CALL LIGHT WITH IN REACH
[2018-07-17 06:20] LABS: BASOPHILS % 0.1 % (0.0-1.0); EOSINOPHILS % 0.3 % (0.0-6.0); HEMATOCRIT 33.1 % (34.2-44.1); LYMPHOCYTES # (AUTO) 1.4 (1.0-3.2); LYMPHOCYTES % 19.7 % (18.0-39.1); MEAN CORPUSCULAR HEMOGLOBIN 33.5 pg (28-32); MEAN CORPUSCULAR HGB CONC 33.2 g/dL (31-35); MEAN CORPUSCULAR VOLUME 100.9 fL (81-99); MONOCYTES # (AUTO) 0.5 (0.2-0.8); MONOCYTES % 6.7 % (4.4-11.3); NEUTROPHILS # (AUTO) 5.3 (2.1-6.9); NEUTROPHILS % 72.8 % (38.7-80.0); PLATELET COUNT 187 x10e3/uL (140-360); RED BLOOD COUNT 3.28 x10e6/uL (3.6-5.1); RED CELL DISTRIBUTION WIDTH 13.5 % (11.7-14.4)
--- NOTE | 2018-07-17 07:07 | NUR ---
IM- progress note O/N no events ROS: no f/c/s/N/V/D/KENT/vision change/cp/sob/dizziness/vision changes/skin rash. v/s; revd PE tired appearing anicteric ns1s2 mod bs soft nt nd right hand with erythema/2-3+edema/tenderness/warmth labs/med;s revd A/P: 82yoF Right hand cellulitis Uncontrolled HTN CKD3 due to DM2, DM-neuropathy Hypothyroidism RA PLAN iv abx lipid/hba1c MRI to further eval after d/w Cont home meds 07/17 f/u MRI. Hba1c/LDL 5. Toño Rizo MD, PhD.
--- NOTE | 2018-07-17 07:16 | NUR ---
BEDSIDE REPORT GIVEN TO THE ON COMING NURSE .
[2018-07-17] MEDS ORDERED: NON-FORMULARY MEDICATION (Pantoprazole Sodium 40 MG) PO SCH (07:30)
[2018-07-17] MEDS: INSULIN REGULAR, HUMAN 100 UNIT/1 ML 3ML VIAL SQ SCH ×4 (07:30→21:00)
[2018-07-17] MEDS ORDERED: SIMVASTATIN 20 MG TAB PO SCH ×2 (09:00→21:00)
[2018-07-17] MEDS: FOLIC ACID 1 MG TAB PO SCH (09:01)
[2018-07-17] MEDS: FUROSEMIDE 40 MG TAB PO SCH (09:01)
[2018-07-17] MEDS: HYDROXYCHLOROQUINE SULFATE 200 MG TAB PO SCH ×2 (09:01→17:38)
[2018-07-17] MEDS: SPIRONOLACTONE 25 MG TAB PO SCH (09:03)
[2018-07-17] MEDS: LISINOPRIL 10 MG TAB PO SCH (09:03)
[2018-07-17] MEDS: MORPHINE SULFATE INJ 4 MG/ML INJ 1ML IV PRN ×3 (10:52→20:49)
--- NOTE | 2018-07-17 12:35 | NUR ---
Patient is off the floor from MRI Addendum: 07/17/18 at 1254 by Lillie Contreras RN correction, Patient is off the floor having MRI done
--- NOTE | 2018-07-17 13:44 | Diagnostic Imaging Report ---
Right hand MRI without contrast Right Wrist MRI without contrast. History: Hand pain. Wrist pain. Cellulitis. Swelling. Pain. Comparison: Radiographs 07/16/2018 Technique: Multiplanar multisequence MRI of the right hand without contrast. Multiplanar multisequence MRI of the right wrist without contrast. Findings: Right hand MRI: There is soft tissue edema most pronounced at the dorsal aspect of the hand. No focal collection is seen. There is no acute fracture, subluxation or avascular necrosis. Micrometallic artifact is seen in the soft tissues along the mid shaft of the first metacarpal. Scattered degenerative changes are seen most pronounced at the first carpal/metacarpal articulation with joint space loss, articular cartilage fraying and fissuring, subchondral cystic change and peripheral osteophytosis. No osseous erosion is seen. No ligamentous or tendon tear is seen. The visualized muscles are normal in size, signal intensity and morphology. The visualized neurovascular bundles are intact. Right wrist MRI: There is soft tissue edema most pronounced at the dorsal aspect of the wrist. No focal collection is seen. There is a distal radial ulnar joint effusion and synovitis. There is no acute fracture, subluxation or avascular necrosis. Micrometallic artifact is seen in the soft tissues along the mid shaft of the first metacarpal. Scattered degenerative changes are seen most pronounced at the first carpal/metacarpal articulation with joint space loss, articular cartilage fraying and fissuring, subchondral cystic change and peripheral osteophytosis. No osseous erosion is seen. No ligamentous or tendon tear is seen. Degeneration and scarring of the scapholunate ligament. The scapholunate interval is slightly widened measuring 4 mm. The visualized muscles are normal in size, signal intensity and morphology. The visualized neurovascular bundles are intact. Impression: Scattered degenerative change about the right hand and right wrist. No definite osseous erosion. Soft tissue edema most pronounced at the dorsal aspect of the right hand and right wrist. No focal collection is seen. Distal radial ulnar joint effusion and synovitis. Signed by: Dr. Eduardo Clark M.D. on 07/17/2018 1:41 PM
--- NOTE | 2018-07-17 20:25 | NUR ---
PT SITTING ON THE CHAIR .MRI SHOWS NO PROBLEM WITH RT HAND.PT C/O PAIN .CONTINUE TO MONITOR
[2018-07-17] MEDS ORDERED: SIMVASTATIN 40 MG TAB PO SCH (21:00)
--- NOTE | 2018-07-17 23:45 | Consultation ---
DATE OF CONSULTATION: 07/17/2018 CHIEF COMPLAINT: Right hand swelling. HISTORY OF PRESENT ILLNESS: The patient is an 82-year-old right-hand dominant female, who states that she underwent nerve conduction study testing last week on Tuesday. She states that they did an EMG portion of the test, which required percutaneous insertion of needles. She stated that approximately 24-48 hours later, her right hand started to swell and cause pain most predominantly on the dorsal aspect of the thumb and index finger regions. She states that the swelling and the pain persisted and then she went to the emergency room yesterday where she was admitted for intravenous antibiotics and observation status. Consultation is now requested to evaluate the right hand for possible surgical drainage needs. PAST MEDICAL AND PAST SURGICAL HISTORY: Noncontributory to the current problem. PHYSICAL EXAMINATION: On pertinent physical exam, she is afebrile. The right hand shows moderate amount of soft tissue swelling, most predominantly around the right index metacarpal extending over the 1st web space. There does not appear to be any ecchymosis. There is no fluctuance and there is no significant erythema. Range of motion is limited secondary to pain and swelling of the region. 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 Tano's test is negative. There is a positive Tinel sign over the right carpal tunnel consistent with a right carpal tunnel syndrome. LABORATORY DATA: On admission showed a white blood cell count of 7.08 and today shows 7.27. Her sedimentation rate is 86. The plain radiographs show scattered degenerative changes throughout the carpus and the hand. She underwent MRI testing today, which shows no focal infectious process, which is surgically amenable to any drainage, only soft tissue swelling. IMPRESSION: Cellulitis, right hand. PLAN: The patient has received intravenous antibiotics for approximately 24 hours and the swelling and the pain seem to be getting somewhat better. I believe that the patient could be discharged in the morning on oral antibiotics and followed up in the office in several days. Thank you for allowing me to participate in the care your patient. MD ANNA Persaud/ALLEN /[id number]
[2018-07-18 00:43] VITALS: BP 112/56
[2018-07-18] MEDS: GABAPENTIN 300 MG CAP PO SCH ×2 (01:30→13:43)
[2018-07-18] MEDS: MORPHINE SULFATE INJ 4 MG/ML INJ 1ML IV PRN ×3 (01:45→13:45)
[2018-07-18 05:41] VITALS: BP 101/50
[2018-07-18] MEDS: CEFAZOLIN SOD 1 GM/NS 50ML 50 ML IV SCH ×2 (06:03→13:44)
[2018-07-18] MEDS: LEVOTHYROXINE SODIUM 100 MCG TAB PO SCH (06:03)
--- NOTE | 2018-07-18 06:34 | NUR ---
PT C/O PAIN AND GIVEN ORDERED PAIN MEDICATION .PT RESTING AND DENIES PAIN.CONTINUE TO MONITOR
[2018-07-18] MEDS ORDERED: PANTOPRAZOLE SOD 40 MG TABEC PO SCH (07:30)
[2018-07-18] MEDS: INSULIN REGULAR, HUMAN 100 UNIT/1 ML 3ML VIAL SQ SCH (07:30)
[2018-07-18] MEDS ORDERED: MINOCYCLINE HCL50 MG PO (07:52)
--- NOTE | 2018-07-18 07:53 | NUR ---
DIscharge summary Principal Dx: Right hand cellulitis Uncontrolled HTN Secondary Dx: CKD3 due to DM2, DM-neuropathy Hypothyroidism RA PLAN iv abx lipid/hba1c MRI to further eval after d/w Cont home meds 07/17 f/u MRI. Hba1c/LDL . d/c home stable f/u pcp 1 week and 1 week and neurology 2 weeks d/c>35mins Toño Rizo MD, PhD.
[2018-07-18 08:30] VITALS: BP 180/77
[2018-07-18 08:36] VITALS: BP 101/50
[2018-07-18] MEDS: FUROSEMIDE 40 MG TAB PO SCH (08:45)
[2018-07-18] MEDS: HYDROXYCHLOROQUINE SULFATE 200 MG TAB PO SCH (08:45)
[2018-07-18] MEDS: LISINOPRIL 10 MG TAB PO SCH (08:45)
[2018-07-18] MEDS: FOLIC ACID 1 MG TAB PO SCH (08:45)
[2018-07-18] MEDS: SPIRONOLACTONE 25 MG TAB PO SCH (08:45)
[2018-07-18] MEDS ORDERED: ONDANSETRON HCL 4 MG ORAL DISINTEGRATING TAB PO PRN (09:00)
[2018-07-18 12:30] VITALS: BP 125/58
[2018-07-18] MEDS ORDERED: ULTRAM 50MG50 MG PO (15:25)
--- NOTE | 2018-07-18 15:35 | NUR ---
Discharge instructions and prescriptions were given to the patient and her daughter, they verbalized understanding. IV to the right wrist was removed with tip intact.
== END 2018-07-18 15:47 | disposition home or self-care (01) ==
LOC: ER 09:58 → INTOOBSV 13:10 → ERHOLD 13:10 → MED/SURG2 14:11
PROVIDERS: ADMIT Internal Medicine; ATTEND Internal Medicine
DX: L03.113 Cellulitis of right upper limb (principal); G56.01 Carpal tunnel syndrome, right upper limb; Z88.5 Allergy status to narcotic agent; Z88.8 Allergy status to other drugs, medicaments and biological substances; E03.9 Hypothyroidism, unspecified; Z87.442 Personal history of urinary calculi; E78.5 Hyperlipidemia, unspecified; E11.42 Type 2 diabetes mellitus with diabetic polyneuropathy; Z85.3 Personal history of malignant neoplasm of breast; M19.041 Primary osteoarthritis, right hand; E11.22 Type 2 diabetes mellitus with diabetic chronic kidney disease; I12.9 Hypertensive chronic kidney disease with stage 1 through stage 4 chronic kidney disease, or unspecified chronic kidney disease; N18.3 Chronic kidney disease, stage 3 (moderate); M06.9 Rheumatoid arthritis, unspecified; Z90.5 Acquired absence of kidney; Z96.653 Presence of artificial knee joint, bilateral
CPT/HCPCS: 36415 ×3; 73130; 73218; 73221; 80048; 80053; 80061; 82948 ×3; 83036; 85025 ×2; 85651; 86140; 99284; G0378 ×3; J0690 ×3; J1885; J2270 ×3; J7050; J7512; S0164

== ENCOUNTER 2018-07-19 14:16 | Emergency (ER) | payer MEDICARE ==
[~2018-07-19] VITALS: Ht 309.9 cm; Wt 106.1 kg
[~2018-07-19 14:16] MED LIST changes: +MINOCYCLINE HCL50 MG PO
--- OUTSIDE RECORDS SUMMARY | 2018-07-19 14:21 | XMS REPORT | Continuity of Care Document ---
Author Author [facility] Interface Address Unknown Phone Unavailable Problems Problem Status Onset Date Classification Date Reported Comments Source Age-related osteoporosis without current pathological fracture Active Problem 07/19/2018 Zoran Barton Other senior living drug therapy Active Problem 07/19/2018 Zoran Barton Rheumatoid arthritis of multiple sites without rheumatoid factor Active Problem 07/19/2018 Zoran Barton Cervical radiculopathy at C7 Active Problem 07/19/2018 Zoran Barton Shortness of breath Active Problem 07/19/2018 Zoran Barton Primary osteoarthritis involving multiple joints Active Problem 07/19/2018 Zoran Barton Postmenopausal Active Problem 07/19/2018 Zoran Barton Age related osteoporosis Active Problem 07/19/2018 Zoran Barton Low vitamin D level Active Problem 07/19/2018 Zoran Barton Trigger finger, right ring finger Active Problem 07/19/2018 Zoran Barton Trigger finger, right index finger Active Problem 07/19/2018 Zoran Barton Osteoporosis Active Problem 07/19/2018 Zoran Barton Medications Medication Details Route Status [...] SUBCUTANEOUSLY Active 125MG SUBCUTANEOUSLY ONCE A WEEK Cartwright 02/09/2017 Zoran Barton Folic Acid 1 tablet Orally Active 1 MG Orally Once a day Dustin 12/17/2016 Zoran Barton Methotrexate take 5 tablets Orally Active 2.5MG Orally ONCE A WEEK Cartwright 09/17/2016 Zoran Barton Vitamin D (Ergocalciferol) 1 capsule Orally Active 36796 UNIT Orally One a week Dustin 07/09/2016 Zoran Barton Gabapentin 3 capsules Orally Active 300 MG Orally TWO times a day Cartwright 04/05/2016 Zoran Barton ORENCIA SQ 125mg SUBCUTANEOUSLY [...] 2.5 MG Orally Once a week Dustin Zoran Barton Levothyroxine Sodium 1 tablet [...] Adverse Reaction hives Adverse Reaction Active 04/26/2018 Zoarn Barton Azulfidine Adverse Reaction Info Not Available [...]
--- OUTSIDE RECORDS SUMMARY | 2018-07-19 14:22 | XMS REPORT ---
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
[2018-07-19] MEDS ORDERED: HYDROCODONE/APAP 7.5MG-325MG 1 EA TAB PO PRN (14:45)
[2018-07-19] MEDS ORDERED: ACETAMINOPHEN/CODEINE 300MG - 30MG TAB PO ONE (15:00)
[2018-07-19] MEDS ORDERED: KETOROLAC TROMETHAMINE 60 MG/2 ML VIAL IM ONE (15:00)
[2018-07-19] MEDS ORDERED: KETOROLAC TROMETHAMINE 30 MG/ML VIAL ONE (15:06)
[2018-07-19] MEDS ORDERED: KETOROLAC TROMETHAMINE 30 MG/ML VIAL IM STA (15:16)
== END 2018-07-19 16:46 | disposition home or self-care (01) ==
LOC: ER 14:16
DX: I10 Essential (primary) hypertension (principal); L03.113 Cellulitis of right upper limb; E11.9 Type 2 diabetes mellitus without complications; E03.9 Hypothyroidism, unspecified; K21.9 Gastro-esophageal reflux disease without esophagitis; Z85.3 Personal history of malignant neoplasm of breast
CPT/HCPCS: 99283; J1885

== ENCOUNTER → 2018-08-10 | Day surgery (SDC) | payer MEDICARE ==
[2018-08-08 09:23] LABS: BASOPHILS % 0.3 % (0.0-1.0); EOSINOPHILS # (AUTO) 0.1 (0.0-0.4); EOSINOPHILS % 1.2 % (0.0-6.0); HEMATOCRIT 35.5 % (34.2-44.1); HEMOGLOBIN 11.9 g/dL (12.0-16.0); LYMPHOCYTES # (AUTO) 1.2 (1.0-3.2); LYMPHOCYTES % 16.9 % (18.0-39.1); MEAN CORPUSCULAR HGB CONC 33.5 g/dL (31-35); MEAN CORPUSCULAR VOLUME 101.4 fL (81-99); MONOCYTES # (AUTO) 0.6 (0.2-0.8); MONOCYTES % 8.6 % (4.4-11.3); NEUTROPHILS # (AUTO) 5.3 (2.1-6.9); NEUTROPHILS % 72.5 % (38.7-80.0); PLATELET COUNT 177 x10e3/uL (140-360); RED CELL DISTRIBUTION WIDTH 13.5 % (11.7-14.4)
[2018-08-08 09:42] LABS: ANION GAP 10.6 mmol/L (8-16); CALCIUM 9.2 mg/dL (8.4-10.2); CREATININE, SERUM 1.04 mg/dL (0.57-1.11); POTASSIUM 3.6 mmol/L (3.5-5.1)
--- NOTE | 2018-08-08 09:51 | Diagnostic Imaging Report ---
EXAM: CHEST 2 VIEWS DATE: 08/08/2018 8:55 AM INDICATION: ^PREOP wrist surgery COMPARISON: None FINDINGS: Lines and tubes: None Heart size normal. No focal pulmonary opacity, pleural effusion or pneumothorax. Minimal blunting of the left costophrenic angle likely related to pleural effusion rather than trace effusion. Upper abdomen unremarkable. No acute bony abnormality. Degenerative changes are seen in the spine. IMPRESSION: No evidence for acute disease. Signed by: Dr. Harris Singer M.D. on 08/08/2018 9:47 AM
[~2018-08-10] MED LIST changes: +BUPIVACAINE HCL 0.5% INJ 30 ML VIAL INJ ONE; +CEFAZOLIN SOD 1 GM/NS 50ML 50 ML IV ONE; +DEXAMETHASONE SOD PHOS INJ 4 MG/ML VIAL ONE; +FENTANYL CITRATE/PF 100MCG/2 ML INJ ONE; +LIDOCAINE HCL 2% LOCAL INJ 5 ML SDV VIAL INJ ONE; +MUPIROCIN 2% OINT 22 GM TUBE ONE; +ONDANSETRON HCL INJ 2MG/ML 2ML 2 MG/ML VIAL ONE; +PROLIA60 MG/1 ML SC; +PROPOFOL IV EMULSION 10 MG/ML 20 ML VIAL ONE; +SEVOFLURANE INHAL SOLN 250 ML PEN BTL ONE
[2018-08-10 08:45] VITALS: BP 179/79
--- NOTE | 2018-08-10 14:21 | Operative Report ---
DATE OF PROCEDURE: 08/10/2018 SURGEON: Martinez Sullivan MD PREOPERATIVE DIAGNOSIS: Right hand carpal tunnel syndrome. POSTOPERATIVE DIAGNOSES: 1. Right hand carpal tunnel syndrome. 2. Flexor tenosynovitis right wrist. PROCEDURE: 1. Right hand open carpal tunnel release. 2. Flexor tenosynovectomy right wrist. ANESTHESIA: General. HISTORY: The patient is an 82-year-old with EMG-proven right hand carpal tunnel syndrome. Risks, benefits and alternatives of treatment were discussed with the patient. The patient is prepared to undergo the procedure as outlined. DESCRIPTION OF PROCEDURE: The patient was brought to the operating theater. After the induction of adequate general inhalation anesthesia, the patient was prepped and draped in the supine position. A time out was performed by the entire operating room team. A 2.5 cm incision was marked out in the intrathenar space. The right upper extremity was exsanguinated, and a tourniquet was inflated to a pressure of 250 mmHg. The incision was made through the skin and subcutaneous tissues and all venous tributaries were controlled with bipolar cautery. The incision was deepened through the palmar fascia until the transverse carpal ligament was identified. The ligament was sharply sectioned, taking care to protect and preserve the median nerve underlying it. After the complete width of the ligament had been transected, the distal volar forearm fascia was divided under direct view. Proliferative flexor tenosynovium was noticed to encompass the median nerve and this was radically excised. After performing this maneuver, the nerve was noted to lie adequately decompressed. The wound was copiously irrigated with bacteriostatic saline, closed with 5-0 nylon in an interrupted horizontal mattress fashion. A Marcaine field block was performed at the operative site. Tourniquet was deflated. All of the fingers pinked up nicely and a sterile bulking conforming bandage was applied to the hand and the wrist. A fiberglass splint was fashioned to maintain the wrist in a modest amount of extension. This was held in place with a loosely wrapped Teto wrap. The patient tolerated the procedure well and was brought to the recovery room in satisfactory condition and discharged with a postoperative instruction sheet as well as a followup appointment. Martinez Sullivan MD ER/MODL /[id number]
== END | disposition home or self-care (01) ==
LOC: OR 05:15
PROVIDERS: ATTEND Plastic Surgery
DX: G56.01 Carpal tunnel syndrome, right upper limb (principal); M65.841 Other synovitis and tenosynovitis, right hand; I10 Essential (primary) hypertension; E11.9 Type 2 diabetes mellitus without complications; G47.33 Obstructive sleep apnea (adult) (pediatric); N20.0 Calculus of kidney; K21.9 Gastro-esophageal reflux disease without esophagitis; M54.9 Dorsalgia, unspecified; M54.2 Cervicalgia; Z88.6 Allergy status to analgesic agent; Z88.2 Allergy status to sulfonamides; Z88.8 Allergy status to other drugs, medicaments and biological substances; Z01.810 Encounter for preprocedural cardiovascular examination; Z01.812 Encounter for preprocedural laboratory examination; Z01.818 Encounter for other preprocedural examination; Z79.84 Long term (current) use of oral hypoglycemic drugs; Z85.3 Personal history of malignant neoplasm of breast; Z85.528 Personal history of other malignant neoplasm of kidney; Z86.19 Personal history of other infectious and parasitic diseases
CPT/HCPCS: 36415; 71046; 80048; 82948; 85025; 93005; J0690; J1100; J2001; J2405

== ENCOUNTER 2019-11-13 11:27 | Emergency (ER) | payer MEDICARE ==
[~2019-11-13] VITALS: Ht 160 cm; Wt 97.5 kg
[~2019-11-13 11:27] MED LIST changes: -BUPIVACAINE HCL 0.5% INJ 30 ML VIAL INJ ONE; -CEFAZOLIN SOD 1 GM/NS 50ML 50 ML IV ONE; -DEXAMETHASONE SOD PHOS INJ 4 MG/ML VIAL ONE; -FENTANYL CITRATE/PF 100MCG/2 ML INJ ONE; -LIDOCAINE HCL 2% LOCAL INJ 5 ML SDV VIAL INJ ONE; -MUPIROCIN 2% OINT 22 GM TUBE ONE; -ONDANSETRON HCL INJ 2MG/ML 2ML 2 MG/ML VIAL ONE; -PROPOFOL IV EMULSION 10 MG/ML 20 ML VIAL ONE; -SEVOFLURANE INHAL SOLN 250 ML PEN BTL ONE
--- OUTSIDE RECORDS SUMMARY | 2019-11-13 12:07 | XMS REPORT | Continuity of Care Document ---
Author Author [facility] t Organization [facility] Address [address] [place] [address] Phone Unavailable Care Team Providers Care It Sales Representative Name Role Phone JANINA MAS DO PCP ANGEL PINA Attphys Unavailable TOÑO TOMAS Attphys Unavailable TOÑO TOMAS Admphys Unavailable Payers Payer Name Policy Type Policy Number Effective Date Expiration Date Christian Gomez [facility] Er [id number] 2015 00:00:00 [facility] Problems Condition Name Condition Details Condition Category Status Onset Date Resolution Date Last Treatment Date Treating Clinician Comments Source Cellulitis of hand Cellulitis of hand Problem Active [facility] Contusion of left hip Contusion of hip, left Problem Active [facility] Dehydration Dehydration Problem Active [facility] Strain of lumbar region Lumbar strain Problem Active [facility] 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 Active Problem 10/16/2019 Zoran Barton Problem Ac tive 2019-10-16 02:48:15 Scotty villarreal Rheumatoid arthritis of multiple sites without rheumat oid factor Rheumatoid arthritis of multiple sites without rheumatoid factor Active Problem 10/16/2019 Zoran Barton Problem Active 2019-10-16 02 :48:15 Scotty Topete Cervical radiculopathy at C7 C ervical radiculopathy at C7 Active Problem 10/16/2019 Zoran Barton Problem Active 2019-10-16 02:48:15 Scotty Topete Shortness of breath Shor tness of breath Active Problem 10/16/2019 Zoran Barton Problem Active 2019-10-16 02:48:15 [facility] 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 Active Problem 10/16/2019 Zoran Barton Problem Active 2019-10-16 02:48:15 [facility] Postmenopausal Post menopausal Active Problem 10/16/2019 Zoran Daviser Problem Active 2019-10-16 02:48:15 [facility] 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 Active Problem 10/16/2019 Zoran Daviser Problem Active 2019-10-16 02 :48:15 [facility] Low vitamin D level Low vitamin D level Active Problem 10/16/2019 Zoran Barton Problem Active 2019-10-16 02:48:15 [facility] Trigger finger, right index finger Trigger finger, right index finger Active Problem 10/16/2019 Zoran Barton Problem Active 2019-10-16 02:48:15 [facility] Trigger finger, right ring finger Trigger finger, right ring finger Active Problem 10/16/2019 Zoran Barton Problem Active 2019-10-16 02:48:15 [facility] Encounter for screening for other viral diseases Encounter for screening for other viral diseases Active Diagnosis 11/11/2018 Zoran Barton Diagnosis Active 2018-11-11 02:47:02 [facility] Encounter for screening for other bacterial diseases Encounter for screening for other bacterial diseases Active Diagnosis 11/11/2018 Zoran Barton Diagnosis Active 2018-11-11 02:47:02 [facility] Encounter for screening for infectious and parasitic d iseases, unspecified Encounter for screening for infectious and parasitic diseases, unspecified Active Diagnosis 11/11/2018 Zoran Barton Diagnosis Active 2018-11-11 02:47:02 [facility] Encounter for screening for other infectious and tyrel itic diseases Encounter for screening for other infectious and parasitic diseases Active Diagnosis 11/11/2018 Zoran Barton Diagnosis Active 2018-11-11 02:47:02 [facility] Screening for tuberculosis Scr eening for tuberculosis Active Diagnosis 11/04/2018 Zoran Barton Diagnosis Active 2018-11-04 02:47:00 [facility] Allergies, Adverse Reactions, Alerts Allergy Name Allergy Type Status Severity Reaction(s) Onset Date Inacti ve Date Treating Clinician Comments Source Azulfidine Azulfidine Active Info Not Available 2019-06-01 00:00:0 0 [facility] hydrocodone DA Active SV 2019-02-26 00:00:00 [facility] acetaminophen DA Active SV 2019-02-26 00:00:00 [facility] hydrocodone bit Propensity to adverse reactions Active Moderate confusion 2016-03-12 00:00:00 [facility] Quinine Allergy to Substance Active Mild HIVES 2016-03-12 00:00:00 [facility] No Known Contrast Allergies DA Active U 2005-02-05 00:00: 00 [facility] No Known Food Allergies DA Active U 2005-02-05 00:00:00 [facility] No Known Other Allergies DA Active U 2005-02-05 00:00:00 [facility] QUININE DA Active U 2005-02-05 00:00:00 [facility] Medications Ordered Medication Name Filled Medication Name Start Date Stop Da te Current Medication? Ordering Clinician Indication Dosage Frequency Signature (SIG) Comments Components Source Folic Acid 2019-08-08 00:00:00 Yes Luciano Barrera 1 tablet [facility] Prolia 2019-07-27 02:46:14 Yes Luciano Barrera as di rected [facility] Methotrexate 2019-06-11 00:00:00 Yes Gunner Barton 6 tablet [facility] Folic Acid 2019-06-11 00:00:00 Yes Luciano Barrera 1 tablet [facility] Tizanidine HCl 2019-06-11 00:00:00 Yes Luciano Barrera 1 tablet [facility] Gabapentin 2019-06-11 00:00:00 Yes Luciano Barrera take 3 capsules by mouth twice daily [facility] Furosemide 2019-06-08 02:47:39 Yes Luciano Barrera 1 tablet [facility] Pantoprazole Sodium 2019-06-08 02:47:39 Yes Lcuiano Barrera 1 tablet [facility] Simvastatin 2019-06-08 02:47:39 Yes Luciano Barrera 1 tablet [facility] Spironolactone 2019-06-08 02:47:39 Yes Luciano Barrera 1 tablet [facility] Gabapentin 2019-06-08 02:47:39 Yes Luciano Barrera take 3 capsules by mouth twice daily [facility] Tramadol 2019-06-08 02:47:39 Yes Luciano Barrera one tablet [facility] Levothyroxine Sodium 2019-06-08 02:47:39 Yes Luciano Ambri z 1 tablet every morning on an empty stomach Memori [facility] ORENCIA SQ 2019-06-08 02:47:39 Yes Luciano Barrera 1 25mg [facility] Nateglinide 2019-06-08 02:47:39 Yes Luciano Barrera 1 tablet before meals [facility] Methotrexate 2019-06-06 00:00:00 Yes Gunner Barton 6 tablet [facility] Gabapentin 2019-06-06 00:00:00 Yes Gunner Barton take 3 capsules by mouth twice daily [facility] Methotrexate 2019-06-01 00:00:00 Yes Luciano Barrera 6 tablet [facility] Methotrexate 2019-02-11 03:45:12 Yes Georgina Horn 6 tablet [facility] Folic Acid 2018-11-11 02:47:02 Yes Wajeeha Dustin 1 tablet [facility] Tradjenta 2018-08-05 02:47:29 Yes Wajeeha Dustin 1 tablet [facility] Tizanidine HCl 2018-08-05 02:47:29 Yes Wajeeha Dustin TAKE 1 TABLET BY MOUTH TWICE DAILY [facility] Minocycline Hcl 50 Mg Capsule Minocycline Hcl 50 Mg Capsule 2018 00:00:00 Yes Toño Tomas Md 100 Twice A Day [facility] Folic Acid 2018-03-24 00:00:00 Yes Wajeeha Dustin 1 tablet [facility] Tramadol 2018-02-01 03:46:23 Yes Wajeeha Dustin o ne tablet [facility] Levothyroxine Sodium 2018-02-01 03:46:23 Yes Wajeeha You saf 1 tablet every morning on an empty stomach [facility] Gabapentin 2017-11-24 02:48:50 Yes Wajeeha Dustin 3 capsules [facility] Medrol 2017-11-18 00:00:00 Yes Wajeeha Dustin 1 tablet with food or milk in the morning [facility] Tizanidine HCl 2017-07-28 02:48:05 Yes Wajeeha Dustin 1 tablet [facility] ORENCIA SQ 2017-07-26 00:00:00 Yes Wajeeha Dustin 125mg [facility] Gabapentin 2017-06-29 00:00:00 Yes Lindamadyson Marinasaf 3 capsules [facility] Methotrexate 2017-06-27 00:00:00 Yes Adonis Marinasaf 6 tablet [facility] 2017-02-23 00:00:00 Yes Lindatorikumarjosefina Dustin 125mg [facility] 2017-02-09 00:00:00 Yes Gunner Barton 125MG [facility] Folic Acid 2016-12-17 00:00:00 Yes Adonis Marinasaf 1 tablet [facility] Methotrexate 2016-09-17 00:00:00 Yes Gunner Barton take 5 tablets [facility] Vitamin D (Ergocalciferol) 2016-07-09 00:00:00 Yes Destinee Marinasaf 1 capsule [facility] Gabapentin 2016-04-05 00:00:00 Yes Gunner Daviser 3 capsules [facility] Furosemide 40 Mg Tablet Furosemide 40 Mg Tablet 2016-03-15 00:00:00 Yes Amauri Osuna Md 20 Daily [facility] 2016-02-06 00:00:00 Yes Lindatorikumara Dustin 125mg [facility] Folic Acid 1 Mg Tablet Folic Acid 1 Mg Tablet Yes 1 Daily [facility] Gabapentin 300 Mg Capsule Gabapentin 300 Mg Capsule Yes 900 Every 12 Hours [facility] Hydroxychloroquine Sulfate 200 Mg Tablet Hydroxychloro quine Sulfate 200 Mg Tablet Yes 200 Twice A Day [facility] Levothyroxine Sodium 100 Mcg Vial Levothyroxine Sodium 100 Mcg Vial Yes 100 Daily [facility] Lisinopril 10 Mg Tablet Lisinopril 10 Mg Tablet Yes 10 Daily [facility] Methotrexate Sodium (Methotrexate) 2.5 Mg Tablet Metho trexate Sodium (Methotrexate) 2.5 Mg Tablet Yes 2.5 Use As Di rected [facility] Pantoprazole Sodium 40 Mg Tablet. Pantoprazole Sodium 40 Mg Tablet. Yes 40 Daily [facility] Simvastatin 20 Mg Tablet Simvastatin 20 Mg Tablet Yes 40 Daily [facility] Spironolactone 25 Mg Tablet Spironolactone 25 Mg Tablet Yes 25 Daily [facility] Tramadol Hcl (Ultram 50MG*) 50 Mg Tab Tramadol Hcl (Ultram 50MG*) 5 0 Mg Tab Yes 50 Every 8 Hours as needed for Moderate Marry n (4-6) [facility] Triamcinolone Acet (Triamcinolone Acetonide) 15 Gm Cr Triamcinolone Acet (Triamcinolone Acetonide) 15 Gm Cr Yes 15 Inge ly [facility] Naproxen 250 Mg Tablet, 500 Mg Oral Naproxen 250 Mg Tablet, 500 Mg Oral 2018-07-18 00:00:00 No 500 Every 12 Hours [facility] Flexatin , 1 Tab Oral Flexatin , 1 Tab Oral 2018-07-16 00:00:00 No 1 Three Times A Day [facility] Furosemide 40 Mg Tablet, 80 Mg Oral Furosemide 40 Mg Tablet, 80 Mg Oral 2016-03-15 00:00:00 No 80 Daily [facility] Abatacept (Orencia) 125 Mg/1 Ml Disp.syrin, 125 Mg Sub cutaneously Abatacept (Orencia) 125 Mg/1 Ml Disp.syrin, 125 Mg Subcutaneously 2016 00:00:00 No 125 Use As Directed [facility] Linagliptin (Tradjenta) 5 Mg Tablet, 5 Mg Oral Linagli ptin (Tradjenta) 5 Mg Tablet, 5 Mg Oral 2016-03-12 00:00:00 No 5 Daily [facility] Naproxen 250 Mg Tablet, 500 Mg Oral Naproxen 250 Mg Tablet, 500 Mg Oral 2016-03-12 00:00:00 No 500 Every 4 Hours [facility] Tizanidine Hcl 4 Mg Tablet, 4 Mg Oral Tizanidine Hcl 4 Mg Tablet , 4 Mg Oral 2016-03-12 00:00:00 No 4 Every 12 Hours [facility] Tramadol Hcl (Ultram 50MG*) 50 Mg Tab, 50 Mg Oral Tram adol Hcl (Ultram 50MG*) 50 Mg Tab, 50 Mg Oral 2016-03-12 00:00:00 No 50 [facility] Furosemide/Normal Saline (Furosemide-Ns 100 Mg/100 Ml) 100 Mg/100 Ml Plast..bag, 40 Mg Furosemide/Normal Saline (Furosemide-Ns 100 Mg/100 Ml) 100 Mg/100 Ml Plast..bag, 40 Mg 2015-12-29 00:00:00 No 40 Daily [facility] Hydroxychloroquine Sulfate 200 Mg Tablet, 200 Mg Oral Hydroxychloroquine Sulfate 200 Mg Tablet, 200 Mg Oral 2015-12-29 00:00:00 No 200 Daily [facility] Modafinil (Provigil) 200 Mg Tablet, 200 Mg Oral Modafi nil (Provigil) 200 Mg Tablet, 200 Mg Oral 2015-12-29 00:00:00 No 200 Hakeem y [facility] Vital Signs Vital Name Observation Time Observation Value Comments Source Weight 2019-06-01 13:45:00 [facility] Height 2019-06-01 13:45:00 [facility] Heart Rate 2019-06-01 13:45:00 [facility] Diastolic (mm Hg) 2019-06-01 13:45:00 [facility] Systolic (mm Hg) 2019-06-01 13:45:00 Kevin marilou [facility] Weight 2019-02-09 16:15:00 [facility] Height 2019-02-09 16:15:00 [facility] Temperature Oral (F) 2019-02-09 16:15:00 98.5 F [facility] Heart Rate 2019-02-09 16:15:00 [facility] Diastolic (mm Hg) 2019-02-09 16:15:00 [facility] [place] Systolic (mm Hg) 2019-02-09 16:15:00 Kevin marilou [facility] Weight 2018-11-03 15:45:00 [facility] Height 2018-11-03 15:45:00 [facility] Temperature Oral (F) 2018-11-03 15:45:00 97.9 F [facility] Heart Rate 2018-11-03 15:45:00 [facility] Diastolic (mm Hg) 2018-11-03 15:45:00 [facility] Systolic (mm Hg) 2018-11-03 15:45:00 Kevin marilou [facility] Weight 2018-08-03 16:30:00 [facility] Height 2018-08-03 16:30:00 [facility] Temperature Oral (F) 2018-08-03 16:30:00 97.0 F [facility] Heart Rate 2018-08-03 16:30:00 [facility] Diastolic (mm Hg) 2018-08-03 16:30:00 [facility] [place] Systolic (mm Hg) 2018-08-03 16:30:00 [facility] Weight 2018-04-26 15:30:00 [facility] Height 2018-04-26 15:30:00 [facility] Temperature Oral (F) 2018-04-26 15:30:00 97.6 F [facility] Heart Rate 2018-04-26 15:30:00 [facility] Diastolic (mm Hg) 2018-04-26 15:30:00 [facility] Systolic (mm Hg) 2018-04-26 15:30:00 [facility] Weight 2018-01-25 16:00:00 [facility] Height 2018-01-25 16:00:00 [facility] Temperature Oral (F) 2018-01-25 16:00:00 97.0 F [facility] Heart Rate 2018-01-25 16:00:00 [facility] Diastolic (mm Hg) 2018-01-25 16:00:00 [facility] Systolic (mm Hg) 2018-01-25 16:00:00 Kevin [facility] Weight 2017-11-18 14:15:00 [facility] Height 2017-11-18 14:15:00 [facility] Temperature Oral (F) 2017-11-18 14:15:00 97.1 F [facility] Heart Rate 2017-11-18 14:15:00 [facility] Diastolic (mm Hg) 2017-11-18 14:15:00 [facility] Systolic (mm Hg) 2017-11-18 14:15:00 [facility] [place] Weight 2017-07-22 14:30:00 [facility] Height 2017-07-22 14:30:00 [facility] Temperature Oral (F) 2017-07-22 14:30:00 97.2 F [facility] Heart Rate 2017-07-22 14:30:00 [facility] Diastolic (mm Hg) 2017-07-22 14:30:00 [facility] Systolic (mm Hg) 2017-07-22 14:30:00 [facility] [place] Weight 2017-04-19 16:15:00 [facility] Height 2017-04-19 16:15:00 [facility] Temperature Oral (F) 2017-04-19 16:15:00 97.5 F [facility] Heart Rate 2017-04-19 16:15:00 [facility] Diastolic (mm Hg) 2017-04-19 16:15:00 [facility] Systolic (mm Hg) 2017-04-19 16:15:00 [facility] Weight 2017-01-18 15:15:00 [facility] Height 2017-01-18 15:15:00 [facility] Temperature Oral (F) 2017-01-18 15:15:00 97.6 F [facility] Heart Rate 2017-01-18 15:15:00 [facility] Diastolic (mm Hg) 2017-01-18 15:15:00 [facility] Systolic (mm Hg) 2017-01-18 15:15:00 [facility] [place] Procedures Procedure Date / Time Performed Performing Clinician Sour e MRI joint upr extrem w/o dye 2018-07-17 00:00:00 MICHAELA PINA [facility] MRI non-joint region of extremity upper wo contrast 00:00:00 ANGEL PINA [facility] Encounters Start Date/Time End Date/Time Encounter Type Admission Type [facility] Care Department Encounter ID Source 2019-10-15 15:25:00 2019-10-15 15:25:00 Outpatient Gunner Barton MD [place] [id number] Zoran Barton MD 2019-10-08 08:11:00 2019-10-08 08:11:00 Outpatient Gunner Barton MD PA [id number] Zoran Barton MD 2019-07-30 10:37:00 2019-07-30 10:37:00 Outpatient Gunner Barton MD PA [id number] Zoran Barton MD 2019-06-11 11:50:00 2019-06-11 11:50:00 Outpatient Gunner Barton MD PA [id number] Zoran Barton MD 2019-06-06 11:54:00 2019-06-06 11:54:00 Outpatient MD JAY JAY Reynoso MD PA [id number] Zoran Barton MD 2019-06-01 08:45:00 2019-06-01 08:45:00 Outpatient Gunner Barton MD PA [id number] Zoran Barton MD 2019-02-09 11:21:00 2019-02-09 11:21:00 Outpatient MD JAY JAY Reynoso MD PA [id number] Zoran Barton MD 2019-02-09 10:15:00 2019-02-09 10:15:00 Outpatient MD JAY JAY Reynoso MD PA [id number] Zoran Barton MD 2019-01-10 12:03:00 2019-01-10 12:03:00 Outpatient MD JAY JAY Reynoso MD PA [id number] Zoran Barton MD 2018-11-08 08:29:00 2018-11-08 08:29:00 Outpatient MD JAY JAY Green MD PA [id number] Zoran Barton MD 2018-11-03 11:11:00 2018-11-03 11:11:00 Outpatient MD JAY JAY Green MD PA [id number] Zoran Barton MD 2018-11-03 10:45:00 2018-11-03 10:45:00 Outpatient Gunner Barton MD PA [id number] Zoran Barton MD 2018-10-11 15:50:00 2018-10-11 15:50:00 Outpatient Gunner Barton MD PA [id number] Zoran Barton MD 2018-08-03 11:30:00 2018-08-03 11:30:00 Outpatient Gunner Barton MD PA [id number] Zoran Barton MD 2018-07-20 13:01:00 2018-07-20 13:01:00 Outpatient Gunner GOYAL [id number] Zoran Barton MD 2018-07-19 14:16:00 2018-07-19 16:46:00 Departed Emergency Room [facility] [id number] [facility] 2018-07-16 13:10:00 2018-07-18 15:47:00 Discharged Inpatient (obs) 1 TOÑO TOMAS [facility] [id number] [facility] 2018-07-10 07:42:00 2018-07-10 07:42:00 Outpatient Gunner GOYAL [id number] Zoran Barton MD 2018-07-05 10:57:00 2018-07-05 10:57:00 Outpatient Gunner Barton MD PA [id number] Zoran Barton MD 2018-04-26 09:30:00 2018-04-26 09:30:00 Outpatient Gunner Barton MD PA [id number] Zoran Barton MD 2018-03-24 14:32:00 2018-03-24 14:32:00 Outpatient Gunner GOYAL [id number] Zoran Barton MD 2018-03-23 09:24:00 2018-03-23 09:24:00 Outpatient Gunner GOYAL [id number] Zoran Barton MD 2018-01-25 10:00:00 2018-01-25 10:00:00 Outpatient Gunner GOYAL [id number] Zoran Barton MD 2018-01-04 15:11:00 2018-01-04 15:11:00 Outpatient Gunner GOYAL [id number] Zoran Barton MD 2018-01-02 09:30:00 2018-01-02 09:30:00 Outpatient Gunner GOYAL [id number] Zoran Barton MD 2017-12-15 13:09:00 2017-12-15 13:09:00 Outpatient Gunner Barton MD PA [id number] Zoran Barton MD 2017-11-18 09:15:00 2017-11-18 09:15:00 Outpatient Gunner Barton MD PA [id number] Zoran Barton MD 2017-09-16 08:55:00 2017-09-16 08:55:00 Outpatient Gunner Barton MD PA [id number] Zoran Barton MD 2017-07-26 09:11:00 2017-07-26 09:11:00 Outpatient Gunner Barton MD PA [id number] Zoran Barton MD 2017-07-22 09:30:00 2017-07-22 09:30:00 Outpatient Gunner Barton MD PA [id number] Zoran Barton MD 2017-07-21 14:41:00 2017-07-21 14:41:00 Outpatient Gunner Barton MD PA [id number] Zoran Barton MD 2017-06-29 16:14:00 2017-06-29 16:14:00 Outpatient Gunner Barton MD PA [id number] Zoran Barton MD 2017-06-27 10:05:00 2017-06-27 10:05:00 Outpatient Gunner Barton MD PA [id number] Zoran Barton MD 2017-05-20 15:45:00 2017-05-20 15:45:00 Outpatient Gunner Barton MD PA [id number] Zoran Barton MD 2017-05-09 15:13:00 2017-05-09 15:13:00 Outpatient Gunner GOYAL [id number] Zoran Barton MD 2017-04-19 10:15:00 2017-04-19 10:15:00 Outpatient Gunner Barton MD PA [id number] Zoran Barton MD 2017-04-06 13:43:00 2017-04-06 13:43:00 Outpatient Gunner Barton MD PA [id number] Zoran Barton MD 2017-02-24 12:18:00 2017-02-24 12:18:00 Outpatient Gunner GOYAL [id number] Zoran Barton MD 2017-02-23 10:25:00 2017-02-23 10:25:00 Outpatient Gunner GOYAL [id number] Zoran Barton MD 2017-02-09 09:55:00 2017-02-09 09:55:00 Outpatient Gunner GOYAL [id number] Zoran Barton MD 2017-02-01 08:41:00 2017-02-01 08:41:00 Outpatient Gunner GOYAL [id number] Zoran Barton MD 2017-01-18 09:15:00 2017-01-18 09:15:00 Outpatient Gunner Barton MD PA [id number] Zoran Barton MD Results Test Description Test Time Test Comments Results Result Comments Source GLUBED 2019-03-02 11:31:00 Test Item GLUBED (test code = GLUBED) 92 mg/dL 74-106 N Performed by certified core machine operator at [facility] [id number] 07:46:00* Test Item Value Reference Range Interpretation Comments GLUBED (test code = GLUBED) 113 mg/dL 74-106 H Performed by certified core machine operator at [facility] [id number] 20:25:00* Test Item Value Reference Range Interpretation Comments GLUBED (test code = GLUBED) 116 mg/dL 74-106 H Performed by certified core machine operator at [facility] [id number] 16:18:00* Test Item Value Reference Range Interpretation Comments GLUBED (test code = GLUBED) 98 mg/dL 74-106 N Performed by certified core machine operator at [facility] [id number] 11:39:00* Test Item Value Reference Range Interpretation Comments GLUBED (test code = GLUBED) 113 mg/dL 74-106 H Performed by certified core machine operator at [facility] URINALYSIS [id number] 08:41:00* Test Item Value Reference Range Interpretation Comments UA COLOR (test code = COLU) Light-Yellow YELLOW UA APPEARANCE (test code = APPU) CLEAR CLEAR UA GLUCOSE DIPSTICK (test code = DGLUU) NEGATIVE mg/dL NEGATIVE UA BILIRUBIN DIPSTICK (test code = BILU) NEGATIVE mg/dL NEGATIVE UA KETONE DIPSTICK (test code = KETU) NEGATIVE mg/dL NEGATIVE UA SPECIFIC GRAVITY (test code = SGU) 1.015 1.001-1.035 UA BLOOD DIPSTICK (test code = KIERAN) Negative mg/dL NEGATIVE UA PH DIPSTICK (test code = SYD) 6.0 5.0-8.0 UA PROTEIN DIPSTICK (test code = PROU) NEGATIVE mg/dL NEGATIVE UA UROBILINIOGEN DIPSTICK (test code = URO) Normal mg/dL NEGATIVE UA NITRITE DIPSTICK (test code = SHANIQUE) NEGATIVE NEGATIVE UA LEUKOCYTE ESTERASE W REFLEX (test code = LEUUR) 500 Rodriguez/u L (3+) Rodriguez/uL NEGATIVE A UA WBC (test code = WBCU) 51-100 per HPF 0-5 A UA RBC (test code = RBCU) 0-2 #/HPF 0-5 UA EPITHELIAL CELLS (test code = EPIU) FEW per HPF FEW UA BACTERIA (test code = BACU) FEW #/HPF NONE A UA MUCUS (test code = MUCU) FEW #/LPF FEW [id number] 07:54:00* Test Item Value Reference Range Interpretation Comments GLUBED (test code = GLUBED) 89 mg/dL 74-106 N Performed by certified core machine operator at [facility] [id number] 20:34:00* Test Item Value Reference Range Interpretation Comments GLUBED (test code = GLUBED) 132 mg/dL 74-106 H Performed by certified core machine operator at [facility] [id number] 16:07:00* Test Item Value Reference Range Interpretation Comments GLUBED (test code = GLUBED) 122 mg/dL 74-106 H [facility] [id number] 13:12:00* Test Item Value Reference Range Interpretation Comments GLUBED (test code = GLUBED) 96 mg/dL 74-106 N [facility] core machine [facility] [id number] 07:56:00* Test Item Value Reference Range Interpretation Comments GLUBED (test code = GLUBED) 163 mg/dL 74-106 H Performed by certified core machine operator at [facility] CBC W/MANUAL [id number] 07:35:00* Test Item Value Reference Range Interpretation Comments WHITE BLOOD CELL (test code = WBC) 2.7 K/mm3 4.5-12.5 L RED BLOOD CELL (test code = RBC) 3.83 mill/mm3 3.7-5.2 N HEMOGLOBIN (test code = HGB) 12.6 gram/dL 11.5-15.5 N HEMATOCRIT (test code = HCT) 39.0 % 36.0-46.0 N MEAN CELL VOLUME (test code = MCV) 101.8 fL 80-98 H MEAN CELL HGB (test code = MCH) 32.9 picogram 27.0-33.0 N MEAN CELL HGB CONCETRATION (test code = MCHC) 32.3 gram/dL 33.0-36. 0 L RED CELL DISTRIBUTION WIDTH (test code = RDW) 13.2 % 11.6-16. 2 N RED CELL DISTRIBUTION WIDTH SD (test code = RDW-SD) 49.1 fL 37 .0-51.0 N PLATELET COUNT (test code = PLT) 137 K/mm3 150-450 L MEAN PLATELET VOLUME (test code = MPV) 9.9 fL 6.7-11.0 N IMMATURE GRANULOCYTE % (test code = IG%) 0.4 % 0.0-5.0 N NUCLEATED RBC % (test code = NRBC%) 0.0 % 0-0 N NEUTROPHIL # (test code = NT#) 2.01 K/mm3 1.8-7.7 N IMMATURE GRANULOCYTE # (test code = IG#) 0.01 x10 3/uL 0-0.03 N LYMPHOCYTE # (test code = LY#) 0.65 K/mm3 1.0-5.0 L MONOCYTE # (test code = MO#) 0.07 K/mm3 0-0.8 N EOSINOPHIL # (test code = EO#) 0.00 K/mm3 0.0-0.5 N BASOPHIL # (test code = BA#) 0.00 K/mm3 0.0-0.2 N NUCLEATED RBC # (test code = NRBC#) 0.00 K/mm3 0.0-0.1 N MANUAL DIFF REQUIRED (test code = MDIFF) YES STAIN ACCEPTABILITY (test code = STN ACCEPTABLE) STAIN ACCEPTABLE TOTAL CELLS COUNTED (test code = TCC) 114 #CELLS SEGMENTED NEUTROPHILS (test code = SEG) 80.7 % 39-69 H BAND NEUTROPHIL (test code = BAND) 0 % 0-10 N LYMPHOCYTE (test code = LYMPH) 12.3 % 25-55 L REACTIVE LYMPH (test code = RELYMPH) 6.1 % MONOCYTE (test code = MON) 0.9 % 0-10 N EOSINOPHIL (test code = EOS) 0 % 0.0-5.0 N BASOPHIL (test code = BASO) 0 % 0-1.0 N METAMYELOCYTE (test code = META) 0 % 0-0 N MYELOCYTE (test code = MYELO) 0 % 0.0-0.0 N PROMYELOCYTE (test code = PROM) 0 % 0-0 N PLATELET ESTIMATE (test code = PLTEST) ADEQUATE PLATELET MORPHOLOGY (test code = PLTMORPH) NORMAL IMMATURE FORMS (test code = IMMAT) 0 % 0-0 N COMPREHENSIVE METABOLIC [id number] 07:04:00* Test Item Value Reference Range Interpretation Comments SODIUM (test code = NA) 140 mmol/L 136-145 N POTASSIUM (test code = K) 4.3 mmol/L 3.5-5.1 N CHLORIDE (test code = CL) 107.0 mmol/L 98-107 N CARBON DIOXIDE (test code = CO2) 27.0 mmol/L 21-32 N ANION GAP (test code = GAP) 10.3 10-20 N GLUCOSE (test code = GLU) 191 mg/dL 74-106 H BLOOD UREA NITROGEN (test code = BUN) 20 mg/dL 7-18 H GLOMERULAR FILTRATION RATE (test code = GFR) 53 mL/min >=60 Estimated GFR by using Modified MDRD formula.Chronic kidney disease is defined as either kidney damageor GFR <60 mL/min/1.73 m2 for >3 months. CREATININE (test code = CREAT) 1.00 mg/dL 0.55-1.02 N Note change in reference range due to change in reagent. BUN/CREATININE RATIO (test code = BUN/CREA) 20.0 10-20 N TOTAL PROTEIN (test code = PROT) 7.1 gram/dL 6.4-8.2 N ALBUMIN (test code = ALB) 3.3 g/dL 3.4-5.0 L GLOBULIN (test code = GLOB) 3.8 gram/dL 2.7-4.2 N ALBUMIN/GLOBULIN RATIO (test code = A/G) 0.9 0.75-1.50 N CALCIUM (test code = CA) 9.0 mg/dL 8.5-10.1 N BILIRUBIN TOTAL (test code = BILT) 0.30 mg/dL 0.0-1.0 N SGOT/AST (test code = AST) 31 IUnit/L 15-37 N SGPT/ALT (test code = ALT) 31 IUnit/L 12-78 N ALKALINE PHOSPHATASE TOTAL (test code = ALKP) 88 IUnit/L 45-117 N Note change in reference range due to change in reagent. THYROID STIMULATING [id number] 07:04:00* Test Item Value Reference Range Interpretation Comments THYROID STIMULATING HORMONE (test code = TSH) 0.803 uIU/mL 0.36-3.7 4 N TSH REFERENCE RANGES: EUTHYROID: 0.35 - 4.3 mIU/mL HYPO : > 5.5 mIU/mL HYPER : < 0.35 mIU/mL COMPREHENSIVE METABOLIC [id number] 06:46:00* Test Item Value Reference Range Interpretation Comments SODIUM (test code = NA) 140 mmol/L 136-145 N POTASSIUM (test code = K) 4.3 mmol/L 3.5-5.1 N CHLORIDE (test code = CL) 107.0 mmol/L 98-107 N CARBON DIOXIDE (test code = CO2) mmol/L 21-32 ANION GAP (test code = GAP) 10-20 GLUCOSE (test code = GLU) mg/dL 74-106 BLOOD UREA NITROGEN (test code = BUN) mg/dL 7-18 GLOMERULAR FILTRATION RATE (test code = GFR) mL/min >=60 CREATININE (test code = CREAT) mg/dL 0.55-1.02 BUN/CREATININE RATIO (test code = BUN/CREA) 10-20 TOTAL PROTEIN (test code = PROT) gram/dL 6.4-8.2 ALBUMIN (test code = ALB) g/dL 3.4-5.0 GLOBULIN (test code = GLOB) gram/dL 2.7-4.2 ALBUMIN/GLOBULIN RATIO (test code = A/G) 0.75-1.50 CALCIUM (test code = CA) mg/dL 8.5-10.1 BILIRUBIN TOTAL (test code = BILT) mg/dL 0.0-1.0 SGOT/AST (test code = AST) IUnit/L 15-37 SGPT/ALT (test code = ALT) IUnit/L 12-78 ALKALINE PHOSPHATASE TOTAL (test code = ALKP) IUnit/L 45-117 THYROID STIMULATING [id number] 06:46:00* Test Item Value Reference Range Interpretation Comments THYROID STIMULATING HORMONE (test code = TSH) uIU/mL 0.36-3.7 4 CBC W/MANUAL [id number] 06:40:00* Test Item Value Reference Range Interpretation Comments WHITE BLOOD CELL (test code = WBC) 2.7 K/mm3 4.5-12.5 L RED BLOOD CELL (test code = RBC) 3.83 mill/mm3 3.7-5.2 N HEMOGLOBIN (test code = HGB) 12.6 gram/dL 11.5-15.5 N HEMATOCRIT (test code = HCT) 39.0 % 36.0-46.0 N MEAN CELL VOLUME (test code = MCV) 101.8 fL 80-98 H MEAN CELL HGB (test code = MCH) 32.9 picogram 27.0-33.0 N MEAN CELL HGB CONCETRATION (test code = MCHC) 32.3 gram/dL 33.0-36. 0 L RED CELL DISTRIBUTION WIDTH (test code = RDW) 13.2 % 11.6-16. 2 N RED CELL DISTRIBUTION WIDTH SD (test code = RDW-SD) 49.1 fL 37 .0-51.0 N PLATELET COUNT (test code = PLT) 137 K/mm3 150-450 L MEAN PLATELET VOLUME (test code = MPV) 9.9 fL 6.7-11.0 N IMMATURE GRANULOCYTE % (test code = IG%) 0.4 % 0.0-5.0 N NUCLEATED RBC % (test code = NRBC%) 0.0 % 0-0 N NEUTROPHIL # (test code = NT#) 2.01 K/mm3 1.8-7.7 N IMMATURE GRANULOCYTE # (test code = IG#) 0.01 x10 3/uL 0-0.03 N LYMPHOCYTE # (test code = LY#) 0.65 K/mm3 1.0-5.0 L MONOCYTE # (test code = MO#) 0.07 K/mm3 0-0.8 N EOSINOPHIL # (test code = EO#) 0.00 K/mm3 0.0-0.5 N BASOPHIL # (test code = BA#) 0.00 K/mm3 0.0-0.2 N NUCLEATED RBC # (test code = NRBC#) 0.00 K/mm3 0.0-0.1 N MANUAL DIFF REQUIRED (test code = MDIFF) YES STAIN ACCEPTABILITY (test code = STN ACCEPTABLE) TOTAL CELLS COUNTED (test code = TCC) #CELLS SEGMENTED NEUTROPHILS (test code = SEG) % 39-69 LYMPHOCYTE (test code = LYMPH) % 25-55 MONOCYTE (test code = MON) % 0-10 EOSINOPHIL (test code = EOS) % 0.0-5.0 CABOT RINGS (test code = CAB) MORPHOLOGY COMMENT (test code = MOC) PLATELET ESTIMATE (test code = PLTEST) PLATELET MORPHOLOGY (test code = PLTMORPH) CBC W/MANUAL [id number] 06:40:00* Test Item Value Reference Range Interpretation Comments WHITE BLOOD CELL (test code = WBC) 2.7 K/mm3 4.5-12.5 L RED BLOOD CELL (test code = RBC) 3.83 mill/mm3 3.7-5.2 N HEMOGLOBIN (test code = HGB) 12.6 gram/dL 11.5-15.5 N HEMATOCRIT (test code = HCT) 39.0 % 36.0-46.0 N MEAN CELL VOLUME (test code = MCV) 101.8 fL 80-98 H MEAN CELL HGB (test code = MCH) 32.9 picogram 27.0-33.0 N MEAN CELL HGB CONCETRATION (test code = MCHC) 32.3 gram/dL 33.0-36. 0 L RED CELL DISTRIBUTION WIDTH (test code = RDW) 13.2 % 11.6-16. 2 N RED CELL DISTRIBUTION WIDTH SD (test code = RDW-SD) 49.1 fL 37 .0-51.0 N PLATELET COUNT (test code = PLT) 137 K/mm3 150-450 L MEAN PLATELET VOLUME (test code = MPV) 9.9 fL 6.7-11.0 N IMMATURE GRANULOCYTE % (test code = IG%) 0.4 % 0.0-5.0 N NUCLEATED RBC % (test code = NRBC%) 0.0 % 0-0 N NEUTROPHIL # (test code = NT#) 2.01 K/mm3 1.8-7.7 N IMMATURE GRANULOCYTE # (test code = IG#) 0.01 x10 3/uL 0-0.03 N LYMPHOCYTE # (test code = LY#) 0.65 K/mm3 1.0-5.0 L MONOCYTE # (test code = MO#) 0.07 K/mm3 0-0.8 N EOSINOPHIL # (test code = EO#) 0.00 K/mm3 0.0-0.5 N BASOPHIL # (test code = BA#) 0.00 K/mm3 0.0-0.2 N NUCLEATED RBC # (test code = NRBC#) 0.00 K/mm3 0.0-0.1 N MANUAL DIFF REQUIRED (test code = MDIFF) YES STAIN ACCEPTABILITY (test code = STN ACCEPTABLE) TOTAL CELLS COUNTED (test code = TCC) #CELLS SEGMENTED NEUTROPHILS (test code = SEG) % 39-69 LYMPHOCYTE (test code = LYMPH) % 25-55 MONOCYTE (test code = MON) % 0-10 EOSINOPHIL (test code = EOS) % 0.0-5.0 CABOT RINGS (test code = CAB) MORPHOLOGY COMMENT (test code = MOC) PLATELET ESTIMATE (test code = PLTEST) PLATELET MORPHOLOGY (test code = PLTMORPH) CBC W/MANUAL [id number] 06:40:00* Test Item Value Reference Range Interpretation Comments WHITE BLOOD CELL (test code = WBC) 2.7 K/mm3 4.5-12.5 L RED BLOOD CELL (test code = RBC) 3.83 mill/mm3 3.7-5.2 N HEMOGLOBIN (test code = HGB) 12.6 gram/dL 11.5-15.5 N HEMATOCRIT (test code = HCT) 39.0 % 36.0-46.0 N MEAN CELL VOLUME (test code = MCV) 101.8 fL 80-98 H MEAN CELL HGB (test code = MCH) 32.9 picogram 27.0-33.0 N MEAN CELL HGB CONCETRATION (test code = MCHC) 32.3 gram/dL 33.0-36. 0 L RED CELL DISTRIBUTION WIDTH (test code = RDW) 13.2 % 11.6-16. 2 N RED CELL DISTRIBUTION WIDTH SD (test code = RDW-SD) 49.1 fL 37 .0-51.0 N PLATELET COUNT (test code = PLT) 137 K/mm3 150-450 L MEAN PLATELET VOLUME (test code = MPV) 9.9 fL 6.7-11.0 N IMMATURE GRANULOCYTE % (test code = IG%) 0.4 % 0.0-5.0 N NUCLEATED RBC % (test code = NRBC%) 0.0 % 0-0 N NEUTROPHIL # (test code = NT#) 2.01 K/mm3 1.8-7.7 N IMMATURE GRANULOCYTE # (test code = IG#) 0.01 x10 3/uL 0-0.03 N LYMPHOCYTE # (test code = LY#) 0.65 K/mm3 1.0-5.0 L MONOCYTE # (test code = MO#) 0.07 K/mm3 0-0.8 N EOSINOPHIL # (test code = EO#) 0.00 K/mm3 0.0-0.5 N BASOPHIL # (test code = BA#) 0.00 K/mm3 0.0-0.2 N NUCLEATED RBC # (test code = NRBC#) 0.00 K/mm3 0.0-0.1 N MANUAL DIFF REQUIRED (test code = MDIFF) YES STAIN ACCEPTABILITY (test code = STN ACCEPTABLE) TOTAL CELLS COUNTED (test code = TCC) #CELLS SEGMENTED NEUTROPHILS (test code = SEG) % 39-69 LYMPHOCYTE (test code = LYMPH) % 25-55 MONOCYTE (test code = MON) % 0-10 EOSINOPHIL (test code = EOS) % 0.0-5.0 MORPHOLOGY COMMENT (test code = MOC) PLATELET ESTIMATE (test code = PLTEST) PLATELET MORPHOLOGY (test code = PLTMORPH) CBC W/MANUAL [id number] 06:40:00* Test Item Value Reference Range Interpretation Comments WHITE BLOOD CELL (test code = WBC) 2.7 K/mm3 4.5-12.5 L RED BLOOD CELL (test code = RBC) 3.83 mill/mm3 3.7-5.2 N HEMOGLOBIN (test code = HGB) 12.6 gram/dL 11.5-15.5 N HEMATOCRIT (test code = HCT) 39.0 % 36.0-46.0 N MEAN CELL VOLUME (test code = MCV) 101.8 fL 80-98 H MEAN CELL HGB (test code = MCH) 32.9 picogram 27.0-33.0 N MEAN CELL HGB CONCETRATION (test code = MCHC) 32.3 gram/dL 33.0-36. 0 L RED CELL DISTRIBUTION WIDTH (test code = RDW) 13.2 % 11.6-16. 2 N RED CELL DISTRIBUTION WIDTH SD (test code = RDW-SD) 49.1 fL 37 .0-51.0 N PLATELET COUNT (test code = PLT) 137 K/mm3 150-450 L MEAN PLATELET VOLUME (test code = MPV) 9.9 fL 6.7-11.0 N IMMATURE GRANULOCYTE % (test code = IG%) 0.4 % 0.0-5.0 N NUCLEATED RBC % (test code = NRBC%) 0.0 % 0-0 N NEUTROPHIL # (test code = NT#) 2.01 K/mm3 1.8-7.7 N IMMATURE GRANULOCYTE # (test code = IG#) 0.01 x10 3/uL 0-0.03 N LYMPHOCYTE # (test code = LY#) 0.65 K/mm3 1.0-5.0 L MONOCYTE # (test code = MO#) 0.07 K/mm3 0-0.8 N EOSINOPHIL # (test code = EO#) 0.00 K/mm3 0.0-0.5 N BASOPHIL # (test code = BA#) 0.00 K/mm3 0.0-0.2 N NUCLEATED RBC # (test code = NRBC#) 0.00 K/mm3 0.0-0.1 N MANUAL DIFF REQUIRED (test code = MDIFF) YES STAIN ACCEPTABILITY (test code = STN ACCEPTABLE) TOTAL CELLS COUNTED (test code = TCC) #CELLS SEGMENTED NEUTROPHILS (test code = SEG) % 39-69 LYMPHOCYTE (test code = LYMPH) % 25-55 MONOCYTE (test code = MON) % 0-10 MORPHOLOGY COMMENT (test code = MOC) PLATELET ESTIMATE (test code = PLTEST) PLATELET MORPHOLOGY (test code = PLTMORPH) CBC W/MANUAL [id number] 06:40:00* Test Item Value Reference Range Interpretation Comments WHITE BLOOD CELL (test code = WBC) 2.7 K/mm3 4.5-12.5 L RED BLOOD CELL (test code = RBC) 3.83 mill/mm3 3.7-5.2 N HEMOGLOBIN (test code = HGB) 12.6 gram/dL 11.5-15.5 N HEMATOCRIT (test code = HCT) 39.0 % 36.0-46.0 N MEAN CELL VOLUME (test code = MCV) 101.8 fL 80-98 H MEAN CELL HGB (test code = MCH) 32.9 picogram 27.0-33.0 N MEAN CELL HGB CONCETRATION (test code = MCHC) 32.3 gram/dL 33.0-36. 0 L RED CELL DISTRIBUTION WIDTH (test code = RDW) 13.2 % 11.6-16. 2 N RED CELL DISTRIBUTION WIDTH SD (test code = RDW-SD) 49.1 fL 37 .0-51.0 N PLATELET COUNT (test code = PLT) 137 K/mm3 150-450 L MEAN PLATELET VOLUME (test code = MPV) 9.9 fL 6.7-11.0 N IMMATURE GRANULOCYTE % (test code = IG%) 0.4 % 0.0-5.0 N NUCLEATED RBC % (test code = NRBC%) 0.0 % 0-0 N NEUTROPHIL # (test code = NT#) 2.01 K/mm3 1.8-7.7 N IMMATURE GRANULOCYTE # (test code = IG#) 0.01 x10 3/uL 0-0.03 N LYMPHOCYTE # (test code = LY#) 0.65 K/mm3 1.0-5.0 L MONOCYTE # (test code = MO#) 0.07 K/mm3 0-0.8 N EOSINOPHIL # (test code = EO#) 0.00 K/mm3 0.0-0.5 N BASOPHIL # (test code = BA#) 0.00 K/mm3 0.0-0.2 N NUCLEATED RBC # (test code = NRBC#) 0.00 K/mm3 0.0-0.1 N MANUAL DIFF REQUIRED (test code = MDIFF) YES STAIN ACCEPTABILITY (test code = STN ACCEPTABLE) TOTAL CELLS COUNTED (test code = TCC) #CELLS SEGMENTED NEUTROPHILS (test code = SEG) % 39-69 LYMPHOCYTE (test code = LYMPH) % 25-55 MONOCYTE (test code = MON) % 0-10 EOSINOPHIL (test code = EOS) % 0.0-5.0 CABOT RINGS (test code = CAB) MORPHOLOGY COMMENT (test code = MOC) PLATELET ESTIMATE (test code = PLTEST) PLATELET MORPHOLOGY (test code = PLTMORPH) [id number] 21:51:00* Test Item Value Reference Range Interpretation Comments GLUBED (test code = GLUBED) 69 mg/dL 74-106 L Performed by certified core machine operator [facility]~ - XR PELVIS 2 [id number] 15:28:00 FAX: Melba Hernandez MD [phone] [place]: St: ADM Name: PARTH HIRSCH SHAHEED [facility] : [birth year] 38 Age/S: 83/F [address] [facility] Unit #: [id number] Loc: V.[address] [place] [address] Phys: Melba Hernandez MD Acct: [id number] Dis Date: Status: ADM IN PHONE #: [phone] Exam Date: 02/27/2019 1431 FAX #: [phone] Reason: R/O FRACTURE EXAMS: CPT CODE: [id number] XR PELVIS 2 VIEWS [id number] HISTORY: R/O FRACTURE EXAM: AP pelvis Comparison: None FINDINGS: Exc reted IV contrast opacifies the urinary bladder which partly obscures the sacrum and the left pubic bone. Additionally the patient is also rotated. This somewhat limits this exam. No acute fracture of the bony pelv is. No diastases of the SI joints or pubic symphysis. Degenerative changes are present in the hip joints. Proximal f emurs are intact. There is disc degeneration in the lower lumbar spine. IMPRESSION: Degenerative changes in the bilateral hips an d in the visualized spine but no acute fracture within limitations of th e exam as described above. Location: [facility] E lectronically Signed by Parmjit Jones MD on 02/27/2019 at 1528 Reported and signed by: Parmjit Jones MD CC: Melba Hernandez MD Technologist: Sandra Moreno Trnscrd Date/Time/By: 02/27/2019 (2838) : By: [email or web address] Orig Print D/T: S: 02/27/2019 (9186) PAGE 1 Signed Report COMPREHENSIVE METABOLIC [id number] 03:26:00* Test Item Value Reference Range Interpretation Comments SODIUM (test code = NA) 144 mmol/L 136-145 N POTASSIUM (test code = K) 3.8 mmol/L 3.5-5.1 N CHLORIDE (test code = CL) 110.0 mmol/L 98-107 H CARBON DIOXIDE (test code = CO2) 27.0 mmol/L 21-32 N ANION GAP (test code = GAP) 10.8 10-20 N GLUCOSE (test code = GLU) 76 mg/dL 74-106 N BLOOD UREA NITROGEN (test code = BUN) 22 mg/dL 7-18 H GLOMERULAR FILTRATION RATE (test code = GFR) 60 mL/min >=60 Estimated GFR by using Modified MDRD formula.Chronic kidney disease is defined as either kidney damageor GFR <60 mL/min/1.73 m2 for >3 months. CREATININE (test code = CREAT) 0.90 mg/dL 0.55-1.02 N Note change in reference range due to change in reagent. BUN/CREATININE RATIO (test code = BUN/CREA) 24.4 10-20 H TOTAL PROTEIN (test code = PROT) 6.0 gram/dL 6.4-8.2 L ALBUMIN (test code = ALB) 3.0 g/dL 3.4-5.0 L GLOBULIN (test code = GLOB) 3.0 gram/dL 2.7-4.2 N ALBUMIN/GLOBULIN RATIO (test code = A/G) 1.0 0.75-1.50 N CALCIUM (test code = CA) 8.7 mg/dL 8.5-10.1 N BILIRUBIN TOTAL (test code = BILT) 0.20 mg/dL 0.0-1.0 N SGOT/AST (test code = AST) 32 IUnit/L 15-37 N SGPT/ALT (test code = ALT) 29 IUnit/L 12-78 N ALKALINE PHOSPHATASE TOTAL (test code = ALKP) 75 IUnit/L 45-117 N Note change in reference range due to change in reagent. COMPREHENSIVE METABOLIC [id number] 03:16:00* Test Item Value Reference Range Interpretation Comments SODIUM (test code = NA) 144 mmol/L 136-145 N POTASSIUM (test code = K) 3.8 mmol/L 3.5-5.1 N CHLORIDE (test code = CL) 110.0 mmol/L 98-107 H CARBON DIOXIDE (test code = CO2) mmol/L 21-32 ANION GAP (test code = GAP) 10-20 GLUCOSE (test code = GLU) mg/dL 74-106 BLOOD UREA NITROGEN (test code = BUN) mg/dL 7-18 GLOMERULAR FILTRATION RATE (test code = GFR) mL/min >=60 CREATININE (test code = CREAT) mg/dL 0.55-1.02 BUN/CREATININE RATIO (test code = BUN/CREA) 10-20 TOTAL PROTEIN (test code = PROT) gram/dL 6.4-8.2 ALBUMIN (test code = ALB) g/dL 3.4-5.0 GLOBULIN (test code = GLOB) gram/dL 2.7-4.2 ALBUMIN/GLOBULIN RATIO (test code = A/G) 0.75-1.50 CALCIUM (test code = CA) mg/dL 8.5-10.1 BILIRUBIN TOTAL (test code = BILT) mg/dL 0.0-1.0 SGOT/AST (test code = AST) IUnit/L 15-37 SGPT/ALT (test code = ALT) IUnit/L 12-78 ALKALINE PHOSPHATASE TOTAL (test code = ALKP) IUnit/L 45-117 [id number] 03:15:00* Test Item Value Reference Range Interpretation Comments TROPONIN-I (test code = TROPI) <0.015 ng/mL 0-0.045 N COMMENTS TO [facility] REDEVELOPMENT SITE MANAGER: COLLECT 3 HOURS AFTER PREVIOUS SAMPLECBC W/AUTO [id number] 02:48:00* Test Item Value Reference Range Interpretation Comments WHITE BLOOD CELL (test code = WBC) 3.4 K/mm3 4.5-12.5 L RED BLOOD CELL (test code = RBC) 3.50 mill/mm3 3.7-5.2 L HEMOGLOBIN (test code = HGB) 11.5 gram/dL 11.5-15.5 N HEMATOCRIT (test code = HCT) 36.4 % 36.0-46.0 N MEAN CELL VOLUME (test code = MCV) 104.0 fL 80-98 H MEAN CELL HGB (test code = MCH) 32.9 picogram 27.0-33.0 N MEAN CELL HGB CONCETRATION (test code = MCHC) 31.6 gram/dL 33.0-36. 0 L RED CELL DISTRIBUTION WIDTH (test code = RDW) 13.3 % 11.6-16. 2 N RED CELL DISTRIBUTION WIDTH SD (test code = RDW-SD) 50.6 fL 37 .0-51.0 N PLATELET COUNT (test code = PLT) 110 K/mm3 150-450 L MEAN PLATELET VOLUME (test code = MPV) 9.9 fL 6.7-11.0 N NEUTROPHIL % (test code = NT%) 44.8 % 39.0-69.0 N IMMATURE GRANULOCYTE % (test code = IG%) 0.3 % 0.0-5.0 N LYMPHOCYTE % (test code = LY%) 37.0 % 25.0-55.0 N MONOCYTE % (test code = MO%) 17.3 % 0.0-10.0 H EOSINOPHIL % (test code = EO%) 0.3 % 0.0-5.0 N BASOPHIL % (test code = BA%) 0.3 % 0.0-1.0 N NUCLEATED RBC % (test code = NRBC%) 0.0 % 0-0 N NEUTROPHIL # (test code = NT#) 1.50 K/mm3 1.8-7.7 L IMMATURE GRANULOCYTE # (test code = IG#) 0.01 x10 3/uL 0-0.03 N LYMPHOCYTE # (test code = LY#) 1.24 K/mm3 1.0-5.0 N MONOCYTE # (test code = MO#) 0.58 K/mm3 0-0.8 N EOSINOPHIL # (test code = EO#) 0.01 K/mm3 0.0-0.5 N BASOPHIL # (test code = BA#) 0.01 K/mm3 0.0-0.2 N NUCLEATED RBC # (test code = NRBC#) 0.00 K/mm3 0.0-0.1 N MANUAL DIFF REQUIRED (test code = MDIFF) NO [id number] 22:13:00* Test Item Value Reference Range Interpretation Comments TROPONIN-I (test code = TROPI) <0.015 ng/mL 0.00-0.056 N COMMENTS TO [employer] REDEVELOPMENT SITE MANAGER: COLLECT 3 HOURS AFTER PREVIOUS SAMPLEURINALYSIS [id number] 19:20:00* Test Item Value Reference Range Interpretation Comments UA COLOR (test code = COLU) YELLOW YELLOW UA APPEARANCE (test code = APPU) SLIGHT CLOUDY CLEAR A UA GLUCOSE DIPSTICK (test code = DGLUU) norm mg/dL NEGATIVE UA BILIRUBIN DIPSTICK (test code = BILU) NEGATIVE mg/dL NEGATIVE UA KETONE DIPSTICK (test code = KETU) 5 (Trace) mg/dL NEGATIVE A UA SPECIFIC GRAVITY (test code = SGU) 1.015 1.001-1.035 UA BLOOD DIPSTICK (test code = KIERAN) 25 (1+) Pete/uL NEGATIVE A UA PH DIPSTICK (test code = SYD) 6.0 5.0-8.0 UA PROTEIN DIPSTICK (test code = PROU) 15 (TRACE) mg/dL Neg-15 A UA UROBILINIOGEN DIPSTICK (test code = URO) norm mg/dL 0.0-0.2 UA NITRITE DIPSTICK (test code = SHANIQUE) NEGATIVE NEGATIVE UA LEUKOCYTE ESTERASE DIPSTICK (test code = LEUU) 500 Rodriguez/uL (3+) u L NEGATIVE A UA WBC (test code = WBCU) 5-10 per HPF 0-5 A UA RBC (test code = RBCU) 0-3 per HPF 0-5 UA EPITHELIAL CELLS (test code = EPIU) Rare (0-1/hpf) per HPF Few UA BACTERIA (test code = BACU) MODERATE per HPF NONE A Urine Source? Clean CatchURINALYSIS [id number] 19:16:00* Test Item Value Reference Range Interpretation Comments UA COLOR (test code = COLU) YELLOW YELLOW UA APPEARANCE (test code = APPU) SLIGHT CLOUDY CLEAR A UA GLUCOSE DIPSTICK (test code = DGLUU) norm mg/dL NEGATIVE UA BILIRUBIN DIPSTICK (test code = BILU) NEGATIVE mg/dL NEGATIVE UA KETONE DIPSTICK (test code = KETU) 5 (Trace) mg/dL NEGATIVE A UA SPECIFIC GRAVITY (test code = SGU) 1.015 1.001-1.035 UA BLOOD DIPSTICK (test code = KIERAN) 25 (1+) Pete/uL NEGATIVE A UA PH DIPSTICK (test code = SYD) 6.0 5.0-8.0 UA PROTEIN DIPSTICK (test code = PROU) 15 (TRACE) mg/dL Neg-15 A UA UROBILINIOGEN DIPSTICK (test code = URO) norm mg/dL 0.0-0.2 UA NITRITE DIPSTICK (test code = SHANIQUE) NEGATIVE NEGATIVE UA LEUKOCYTE ESTERASE DIPSTICK (test code = LEUU) 500 Rodriguez/uL (3+) u L NEGATIVE A UA WBC (test code = WBCU) per HPF 0-5 UA RBC (test code = RBCU) per HPF 0-5 UA EPITHELIAL CELLS (test code = EPIU) per HPF Few UA BACTERIA (test code = BACU) per HPF NONE Urine Source? Clean Catch- CTA [id number] 19:09:00 Name: PARTH MARTINEZ : 1935 Age/S: 83 / F [address] Unit #: [id number] Loc: [place] [address] Phys: Hitesh Lockwood MD Acct: [id number] Dis Date: Status: REG ER PHONE #: [phone] Exam Date: 02/26/2019 1845 FAX #: [phone] Reason: +d- dimer, dizzy EXAMS: CPT CODE: [id number] CTA CHEST 31999 REASON FOR EXAM: +d-dimer, dizzy EXAM ORDER DATE: 02/26/2019 6:18 PM Ordering MArina: Hitesh Lockwood MD PROCEDURE: - CTA CHEST Comparison:Chest radiograph earlier today Axial CT images of the chest were obtained following administration of IV contrast. Reconstructed sagittal and coronal images of the chest were provided for interpretation. Dose reduction techniques were applied. FINDINGS: Visualized neck: Normal Airways, Lungs and Pleura: Noncalcified pulmonary nodule is present in the right lower lobe measuring 6 mm in size. There is also a 6 mm nodule in the right upper lobe. Rem ainder of the lungs are clear. Airways are patent. No pleural abnormality. Heart, great vessels, pulmonary vessels, mediastinum: There is se chu atherosclerotic disease involving the thoracic aorta. However no dissection or aneurysm is appreciated. The timing of the contrast bolus is suboptimal for evaluation of pulmonary emboli beyond the lobar level. H owever there is no dilation of the pulmonary trunk and no evidence of righ t heart strain to suggest a hemodynamically significant embolus. Mild athe rosclerotic disease is present in the left anterior descending coronary ar chad. Cardiac chambers are within normal limits. Lymph nodes : No axillary, internal mammary, hilar, or mediastinal adenopathy. 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 Suboptimal e valuation for the presence of pulmonary emboli however no evidence of he modynamically significant embolus is seen. Mild coronary atherosclerosis . Noncalcified pulmonary nodules measuring 6 mm in size as described above. If the patient is at low risk for malignancy, then these nod ules do not warrant further evaluation. However if the patient has incre ased risk of malignancy, such as a smoker, a one-year follow-up CT scan is recommended. Location: [facility] Electronically Sharyn d by Parmjit Jones MD on 02/26/2019 at 1909 Reported and s igned by: Parmjit Jones MD CC: Hitesh Lockwood MD Technologist:Sandra Moreno CTDI: DLP: Trnscb Date/Time: 02/26/2019 (1908) [email or web address] Orig Print D/T: S: 02/26/2019 (1911) PAGE 2 Signed Report - CT HEAD/BRAIN W/O [id number] 18:39:00 Name: PARTH MARTINEZ : 1935 Age/S: 83 / F [address] Unit #: [id number] Loc: [place] [address] Phys: Qiana Lockwood MD Acct: [id number] Di s Date: Status: REG ER PHONE #: Exam Date: 02/26/2019 182 FAX #: Reason: dizziness EXAMS: CPT CODE: [id number] CT HEAD/BRAIN W/O CONT 45296 HISTORY: dizziness TECHNIQUE: Noncontrast 2.[address] of the head. Examination a cquired within 24 hours of arrival. Automated exposure control for dose re duction. COMPARISON: None FINDINGS: No lacerations or contusions of the scalp or facial soft tissues. Calvarium and skull base are intact. No acute hemorrhage. No intracranial m ass, mass effect, or midline shift. No effacement of the sulci or del rio-whi te matter interface. There is mild cortical atrophy and there are mild microvascular ischemic changes of the white matter. These are less t peres expected for the patient's age. Visualized paranasal sin uses are clear. Mastoid air cells and middle ear cavities are clear. Orbital contents are unremarkable. IMPRESSION: No acute intracranial process Location: [facility] at 1839 Reported and signed by: Parmjit Jones MD CC: Hitesh Lockwood MD Technologist:Sandra Moreno CTDI: DLP: Trnscb Date/Time: 02/26/2019 (1838) [email or web address] Orig Print D/T: S: 02/26/2019 (1842) PAGE 1 Signed Report - XR CHEST 1 [id number] 18:27:00 [facility] [place] [facility] 1935 Age/S:83 /F [address] Unit#:[id number] Loc: [place] [address] Phys: Hitesh Lockwood MD Dis Date: PHONE #: [phone] Status: REG ER FAX #: [phone] Exam Date: 02/26/2019 Reason: dizziness/falls EXAMS: CPT CODE: [id number] XR CHEST 1 V 96501 REASON FOR EXAM: dizziness/falls Exam Order Date: 02/26/2019 6:01 PM Ordering M.Liliana: Hitesh Lockwood MD PROCEDURE: - XR CHEST 1 V COMPARISON: 2 view chest x-ray February 09, 2015 FINDINGS: The lungs are clear. There is no pleural effusion or pneumothorax. Pulmonary vascularity is within normal limits. Cardiomediastinal silhouette is normal in size for technique. The mediastinal contours are within normal limits. Degenerative changes are present in the spine and in the right shoulder. The visualized upper abdomen is within normal limits. IMPRESSION: No acute cardiopulmonary process. Location: [facility] at 1827 Reported and signed by: Parmjit Jones MD CC: Hitesh Lockwood MD Technologist: Sandra Moreno Trnscrpt Data: 02/26/2019 (182) [email or web address] Orig Print D/T: S: 02/26/2019 (1830) PAGE 1 Signed Report [id number] 18:17:00* Test Item Value Reference Range Interpretation Comments D-DIMER (test code = DDIMER) 2540 ng/ml < 600 HH Results called to DANAY Parker V.LAB.AV1 02/26/197Critical results verified and read back by Nurse? Y BASIC METABOLIC [id number] 18:11:00* Test Item Value Reference Range Interpretation Comments SODIUM (test code = NA) 141 mmol/L 136-145 N POTASSIUM (test code = K) 3.8 mmol/L 3.5-5.1 N CHLORIDE (test code = CL) 103 mmol/L 101-109 N CARBON DIOXIDE (test code = CO2) 28.0 mmol/L 21-32 N ANION GAP (test code = GAP) 14 mmol/L 10-20 N GLUCOSE (test code = GLU) 62 mg/dL 74-106 L BLOOD UREA NITROGEN (test code = BUN) 27 mg/dL 3-21 H GLOMERULAR FILTRATION RATE (test code = GFR) 49 mL/min >=60 Estimated GFR by using Modified MDRD formula.Chronic kidney disease is defined as either kidney damageor GFR <60 mL/min/1.73 m2 for >3 months. CREATININE (test code = CREAT) 1.07 mg/dL 0.55-1.3 N BUN/CREATININE RATIO (test code = BUN/CREA) 25.2 10-20 H CALCIUM (test code = CA) 9.3 mg/dL 8.4-10.2 N HEPATIC FUNCTION [id number] 18:11:00* Test Item Value Reference Range Interpretation Comments TOTAL PROTEIN (test code = PROT) 6.8 g/dL 6.5-8.4 N ALBUMIN (test code = ALB) 3.1 g/dL 3.4-4.8 L GLOBULIN (test code = GLOB) 3.7 G/DL 1-10 N ALBUMIN/GLOBULIN RATIO (test code = A/G) 0.84 RATIO 0.75-1.50 N BILIRUBIN TOTAL (test code = BILT) 0.30 mg/dL 0.0-1.0 N BILIRUBIN DIRECT (test code = BILD) 0.10 mg/dL 0.0-0.30 N SGOT/AST (test code = AST) 32 U/L 6-32 N SGPT/ALT (test code = ALT) 27 U/L 12-78 N N ote: Change in REFERENCE RANGE due to new reagent method. ALKALINE PHOSPHATASE TOTAL (test code = ALKP) 83 U/L 38-126 N CREATINE KINASE (CK)2019-02-26 18:11:00* Test Item Value Reference Range Interpretation Comments CREATINE KINASE (CK) (test code = CK) 225 U/L 26-192 H [id number] 18:11:00* Test Item Value Reference Range Interpretation Comments LIPASE (test code = LIP) 121 U/L 128-270 L [id number] 18:11:00* Test Item Value Reference Range Interpretation Comments TROPONIN-I (test code = TROPI) <0.015 ng/mL 0.00-0.056 N B-TYPE NATRIURETIC [id number] 18:07:00* Test Item Value Reference Range Interpretation Comments B-TYPE NATRIURETIC PEPTIDE (test code = BNP) 33.8 pg/mL 0-100 N BASIC METABOLIC [id number] 17:59:00* Test Item Value Reference Range Interpretation Comments SODIUM (test code = NA) 141 mmol/L 136-145 N POTASSIUM (test code = K) 3.8 mmol/L 3.5-5.1 N CHLORIDE (test code = CL) 103 mmol/L 101-109 N CARBON DIOXIDE (test code = CO2) 28.0 mmol/L 21-32 N ANION GAP (test code = GAP) 14 mmol/L 10-20 N GLUCOSE (test code = GLU) 62 mg/dL 74-106 L BLOOD UREA NITROGEN (test code = BUN) 27 mg/dL 3-21 H GLOMERULAR FILTRATION RATE (test code = GFR) 49 mL/min >=60 Estimated GFR by using Modified MDRD formula.Chronic kidney disease is defined as either kidney damageor GFR <60 mL/min/1.73 m2 for >3 months. CREATININE (test code = CREAT) 1.07 mg/dL 0.55-1.3 N BUN/CREATININE RATIO (test code = BUN/CREA) 25.2 10-20 H CALCIUM (test code = CA) 9.3 mg/dL 8.4-10.2 N HEPATIC FUNCTION [id number] 17:59:00* Test Item Value Reference Range Interpretation Comments TOTAL PROTEIN (test code = PROT) gram/dL 6.4-8.2 ALBUMIN (test code = ALB) g/dL 3.4-5.0 GLOBULIN (test code = GLOB) g/dL 2.7-4.2 ALBUMIN/GLOBULIN RATIO (test code = A/G) 0.75-1.50 BILIRUBIN TOTAL (test code = BILT) mg/dL 0.2-1.2 BILIRUBIN DIRECT (test code = BILD) mg/dL 0.0-0.20 SGOT/AST (test code = AST) IUnit/L 15-37 SGPT/ALT (test code = ALT) U/L 10-69 ALKALINE PHOSPHATASE TOTAL (test code = ALKP) IUnit/L 45-117 CREATINE KINASE (CK)2019-02-26 17:59:00* Test Item Value Reference Range Interpretation Comments CREATINE KINASE (CK) (test code = CK) IUnit/L 26-208 [id number] 17:59:00* Test Item Value Reference Range Interpretation Comments LIPASE (test code = LIP) Unit/L 144-286 [id number] 17:59:00* Test Item Value Reference Range Interpretation Comments TROPONIN-I (test code = TROPI) ng/mL 0-0.045 CBC W/O [id number] 17:49:00* Test Item Value Reference Range Interpretation Comments WHITE BLOOD CELL (test code = WBC) 4.4 K/mm3 4.5-12.5 L RED BLOOD CELL (test code = RBC) 3.59 mill/mm3 3.7-5.2 L HEMOGLOBIN (test code = HGB) 11.8 gram/dL 11.5-15.5 N HEMATOCRIT (test code = HCT) 36.0 % 36.0-46.0 N MEAN CELL VOLUME (test code = MCV) 100.3 fL 80-98 H MEAN CELL HGB (test code = MCH) 32.9 picogram 27.0-33.0 N MEAN CELL HGB CONCETRATION (test code = MCHC) 32.8 gram/dL 33.0-36. 0 L RED CELL DISTRIBUTION WIDTH (test code = RDW) 13.1 % 11.6-16. 2 N RED CELL DISTRIBUTION WIDTH SD (test code = RDW-SD) 48.4 fL 37 .0-51.0 N PLATELET COUNT (test code = PLT) 145 K/mm3 150-450 L MEAN PLATELET VOLUME (test code = MPV) 9.8 fL 6.7-11.0 N SCR MAMM BILATERAL FAIZA CAD [id number] 11:25:32 - SCR MAMM BILATERAL FAIZA CAD DIGITALBILATERAL DIGITAL SCREENING MAMMOGRAM 3D/2D WITH CAD: 11/08/2018CLINICAL: Asymptomatic. Digital breast tomosynthesis was performed in addition to routine CC and MLO views. Current mammographic images were evaluated by either a [employer] M-Vu or a [employer] ImageChecker CAD (computer aided detection system). Comparison is made to exams dated 08/10/2017 mammogram, 03/23/2013 mammogram, and 03/14/2012 mammogram - [facility]. The tissue of both breasts is predominantly fatty. The left breast has been surgica lly removed. TRAM flap reconstruction in place. The reconstructed breast shows n o sign of neoplasm. No suspicious mass, architectural distortion, malignant typ e calcification, or lymph node abnormality detected. IMPRESSION: NEGATIVEThere is no mammographic evidence of malignancy. Resume annual screening mammography i n one year. Margarita Frost M.D. dm/:11/08/2018 11:25:32 Imaging Technol ogist: Sheila Encinas , [facility] sent: BIRADS 1-2 Nor mal Mammogram BI-RADS: 1 NegativeCHEST 2 [id number] 09:45:00 [place] [address] Patient Name: PARTH MARTINEZ MR #: [id number] : 1935 Age/Sex: 82/F Req #: [id number] [facility] Physician: Ordered by: ANGEL PINA MD Report #: [id number] Location: OR Room/Bed: Procedure: [id number] DX/ CHEST 2 VIEWS Exam Date: Exam Time: REPORT STATUS: Signed EXAM: CHEST 2 VIEWS DATE: 08/08/2018 8:55 AM INDICATION: PREOP wrist surgery COMPARISON: None FINDINGS: Lines and tubes: None Heart size lacie l. No focal pulmonary opacity, pleural effusion or pneumothorax. Minimal bl unting of the left costophrenic angle likely related to pleural effusion rathe r than trace effusion. Upper abdomen unremarkable. No acute bony abnormal ity. Degenerative changes are seen in the spine. IMPRESSION: No evidenc e for acute disease. Signed by: Dr. Harris Singer M.D. on 08/08/2018 9:47 A M Dictated By: HARRIS SINGER MD 6 Transcribed By: DOMINGO on 08/08/18946 COPY TO: ANGEL GARCIA MD Bedside [id number] 16:00:00* Test Item Value Reference Range Interpretation Comments Bedside Glucose (test code = 03152-3) 72 70-120 Meter ID: [id number] [facility] 2018-07-18 11:26:00* Test Item Value Reference Range Interpretation Comments Bedside Glucose (test code = 99325-9) 95 70-120 Meter ID: [id number] [facility] WO 2018-07-17 13:30:00 [place] [address] Patient Name: PARTH MARTINEZ MR #: [id number] : 1935 Age/Sex: 82/F Req #: [id number] Adm Physician: TOÑO TOMAS MD Ordered by: ANGEL PINA MD Report #: [id number] Location: MED/SURG2 Room/Bed: [facility] Procedure: [id number] MRI /MRI HAND RIGHT WO Exam Date: Exam Time: REPORT STATUS: Signed Right hand MRI with out contrast Right Wrist MRI without contrast. History: Hand pain. Wrist pain. Cellulitis. Swelling. Pain. Comparison: Radiographs 07/16/2018 Technique: Multiplanar multisequence MRI of the right hand without contrast. M ultiplanar multisequence MRI of the right wrist without contrast. Findings: Right hand MRI: There is soft tissue edema most pronounced at the do rsal aspect of the hand. No focal collection is seen. There is no acute f racture, subluxation or avascular necrosis. Micrometallic artifact is seen in the soft tissues along the mid shaft of the first metacarpal. Scattere d degenerative changes are seen most pronounced at the first carpal/metacarpal articulation with joint space loss, articular cartilage fraying and fissuring, subchondral cystic change and peripheral osteophytosis. No osseous erosion is seen. No ligamentous or tendon tear is seen. The visualized muscles are normal in size, signal intensity and morphology. The visualized neurova scular bundles are intact. Right wrist MRI: There is soft tissue edema most pronounced at the dorsal aspect of the wrist. No focal collection is see n. There is a distal radial ulnar joint effusion and synovitis. There is no acute fracture, subluxation or avascular necrosis. Micrometallic rik fact is seen in the soft tissues along the mid shaft of the first metacarpal. Scattered degenerative changes are seen most pronounced at the first carp al/metacarpal articulation with joint space loss, articular cartilage fraying and fissuring, subchondral cystic change and peripheral osteophytosis. No osse ous erosion is seen. No ligamentous or tendon tear is seen. Degeneration an d scarring of the scapholunate ligament. The scapholunate interval is slightly widened measuring 4 mm. The visualized muscles are normal in size, signal intensity and morphology. The visualized neurovascular bundles are intact. Impression: Scattered degenerative change about the right hand and right wrist. No definite osseous erosion. Soft tissue edema most pronounced at the dorsal aspect of the right hand and right wrist. No focal collection is seen. Distal radial ulnar joint effusion and synovitis. Signed b y: Dr. Janelle Clark M.D. on 07/17/2018 1:41 PM Dictated By: JANELLE CLARK MD, MD 1341 Transcrib ed By: DOMINGO on 07/17/18 1341 COPY TO: ANGEL PINA MD MRI WRIST RIGHT [id number] 13:30:00 [facility] [address] [address] Patient Name: PARTH MARTINEZ MR #: [id number] : 1935 Age/Sex: 82/F Req #: [id number] Adm Physician: TOÑO TOMAS MD Ordered by: ANGEL PINA MD Report #: [id number] Location: MED/SURG2 Room/Bed: [facility] Procedure: [id number] MRI /MRI WRIST RIGHT WO Exam Date: Exam Time: REPORT STATUS: Signed Right hand MRI wit hout contrast Right Wrist MRI without contrast. History: Hand pain. Wris t pain. Cellulitis. Swelling. Pain. Comparison: Radiographs 07/16/2018 Technique: Multiplanar multisequence MRI of the right hand without contrast. Multiplanar multisequence MRI of the right wrist without contrast. Findings : Right hand MRI: There is soft tissue edema most pronounced at the d orsal aspect of the hand. No focal collection is seen. There is no acute fracture, subluxation or avascular necrosis. Micrometallic artifact is seen in the soft tissues along the mid shaft of the first metacarpal. Scatter ed degenerative changes are seen most pronounced at the first carpal/metacarpa l articulation with joint space loss, articular cartilage fraying and fissurin g, subchondral cystic change and peripheral osteophytosis. No osseous erosion is seen. No ligamentous or tendon tear is seen. The visualized muscles are normal in size, signal intensity and morphology. The visualized neurov ascular bundles are intact. Right wrist MRI: There is soft tissue segundo a most pronounced at the dorsal aspect of the wrist. No focal collection is se en. There is a distal radial ulnar joint effusion and synovitis. There is no acute fracture, subluxation or avascular necrosis. Micrometallic art ifact is seen in the soft tissues along the mid shaft of the first metacarpal. Scattered degenerative changes are seen most pronounced at the first car pal/metacarpal articulation with joint space loss, articular cartilage fraying and fissuring, subchondral cystic change and peripheral osteophytosis. No oss eous erosion is seen. No ligamentous or tendon tear is seen. Degeneration a nd scarring of the scapholunate ligament. The scapholunate interval is slightl y widened measuring 4 mm. The visualized muscles are normal in size, sign al intensity and morphology. The visualized neurovascular bundles are intac t. Impression: Scattered degenerative change about the right hand and rig ht wrist. No definite osseous erosion. Soft tissue edema most pronounced at the dorsal aspect of the right hand and right wrist. No focal collection is seen. Distal radial ulnar joint effusion and synovitis. Signed by: Dr. Janelle Clark M.D. on 07/17/2018 1:41 PM Dictated By: JANELLE CLARK MD, MD 134 Transcri bed By: DOMINGO on 07/17/181 COPY TO: ANGEL PINA MD C- Reactive [id number] 11:57:00* Test Item Value Reference Range Interpretation Comments C-Reactive Protein (test code = 1987-06) 53.0 0.0-4.9 H Performed at: - [address] [id number] Director: Pedro Smalls MD, Phone: [phone] Rollins BrookC-Reactive [id number] 11:57:00* Test Item Value Reference Range Interpretation Comments C-Reactive Protein (test code = 1987-06) 53.0 0.0-4.9 H Performed at: - LabCo[address] [id number] Director: Pedro Smalls MD, Phone: [phone] Rollins BrookWhite Blood Ihgqc4729-62-32 06:28:00* Test Item Value Reference Range Interpretation Comments White Blood Count (test code = 6690-2) 7.27 4.8-10.8 [facility] BrookRed Blood Vqsjl8108-65-07 06:28:00* Test Item Value Reference Range Interpretation Comments Red Blood Count (test code = 789-8) 3.28 3.6-5.1 L [facility] BrookHemoglobin2019-05-20 06:28:00* Test Item Value Reference Range Interpretation Comments Hemoglobin (test code = 45041-9) 11.0 12.0-16.0 L [facility] BrookHematocrit2019-05-20 06:28:00* Test Item Value Reference Range Interpretation Comments Hematocrit (test code = 4544-3) 33.1 34.2-44.1 L [facility] BrookMean Corpuscular Ohlirm9405-81-19 06:28:00* Test Item Value Reference Range Interpretation Comments Mean Corpuscular Volume (test code = 787-2) 100.9 81-99 H [facility] BrookMean Corpuscular Ptfjzgaren7204-41-82 06:28:00* Test Item Value Reference Range Interpretation Comments Mean Corpuscular Hemoglobin (test code = 785-6) 33.5 28-32 H [facility] BrookMean Corpuscular Hemoglobin Concent 2018-07-17 06:28:00* Test Item Value Reference Range Interpretation Comments Mean Corpuscular Hemoglobin Concent (test code = 786-4) 33.2 31-35 [facility] BrookRed Cell Distribution Gkowg2924-25-73 06:28:00* Test Item Value Reference Range Interpretation Comments Red Cell Distribution Width (test code = 70731-4) 13.5 11.7 -14.4 [facility] BrookPlatelet Doyhb0148-35-70 06:28:00* Test Item Value Reference Range Interpretation Comments Platelet Count (test code = 777-3) 187 140-360 [facility] BrookNeutrophils (%) (Auto)2018-07-17 06:28:00 * Test Item Value Reference Range Interpretation Comments Neutrophils (%) (Auto) (test code = 14382-3) 72.8 38.7-80.0 [facility] BrookLymphocytes (%) (Auto)2018-07-17 06:28:00 * Test Item Value Reference Range Interpretation Comments Lymphocytes (%) (Auto) (test code = 736-9) 19.7 18.0-39.1 [facility] BrookMonocytes (%) (Auto)2018-07-17 06:28:00* Test Item Value Reference Range Interpretation Comments Monocytes (%) (Auto) (test code = 5905-5) 6.7 4.4-11.3 [facility] BrookEosinophils (%) (Auto)2018-07-17 06:28:00 * Test Item Value Reference Range Interpretation Comments Eosinophils (%) (Auto) (test code = 713-8) 0.3 0.0-6.0 [facility] BrookBasophils (%) (Auto)2018-07-17 06:28:00* Test Item Value Reference Range Interpretation Comments Basophils (%) (Auto) (test code = 706-2) 0.1 0.0-1.0 [facility] BrookIM GRANULOCYTES %2018-07-17 06:28:00* Test Item Value Reference Range Interpretation Comments IM GRANULOCYTES % (test code = IM GRANULOCYTES %) 0.4 0.0- 1.0 [facility] BrookNeutrophils # (Auto)2018-07-17 06:28:00* Test Item Value Reference Range Interpretation Comments Neutrophils # (Auto) (test code = 751-8) 5.3 2.1-6.9 [facility] BrookLymphocytes # (Auto)2018-07-17 06:28:00* Test Item Value Reference Range Interpretation Comments Lymphocytes # (Auto) (test code = 20936-6) 1.4 1.0-3.2 [facility] BrookMonocytes # (Auto)2018-07-17 06:28:00* Test Item Value Reference Range Interpretation Comments Monocytes # (Auto) (test code = 742-7) 0.5 0.2-0.8 [facility] BrookEosinophils # (Auto)2018-07-17 06:28:00* Test Item Value Reference Range Interpretation Comments Eosinophils # (Auto) (test code = 711-2) 0.0 0.0-0.4 [facility] BrookBasophils # (Auto)2018-07-17 06:28:00* Test Item Value Reference Range Interpretation Comments Basophils # (Auto) (test code = 704-7) 0.0 0.0-0.1 [facility] BrookAbsolute Immature Granulocyte (auto 2018-07-17 06:28:00* Test Item Value Reference Range Interpretation Comments Absolute Immature Granulocyte (auto (xuan t code = Absolute Immature Granulocyte (auto) 0.03 0-0.1 [facility] BrookWhite Blood Unvum2267-56-16 06:28:00* Test Item Value Reference Range Interpretation Comments White Blood Count (test code = 6690-2) 7.27 4.8-10.8 [facility] BrookRed Blood Cgxdq3848-70-63 06:28:00* Test Item Value Reference Range Interpretation Comments Red Blood Count (test code = 789-8) 3.28 3.6-5.1 L [facility] BrookHemoglobin2019-05-20 06:28:00* Test Item Value Reference Range Interpretation Comments Hemoglobin (test code = 00094-5) 11.0 12.0-16.0 L [facility] BrookHematocrit2019-05-20 06:28:00* Test Item Value Reference Range Interpretation Comments Hematocrit (test code = 4544-3) 33.1 34.2-44.1 L [facility] BrookMean Corpuscular Rmgeel1413-96-97 06:28:00* Test Item Value Reference Range Interpretation Comments Mean Corpuscular Volume (test code = 787-2) 100.9 81-99 H [facility] BrookMean Corpuscular Rgktovxdiy7967-03-47 06:28:00* Test Item Value Reference Range Interpretation Comments Mean Corpuscular Hemoglobin (test code = 785-6) 33.5 28-32 H [facility] BrookMean Corpuscular Hemoglobin Concent 2018-07-17 06:28:00* Test Item Value Reference Range Interpretation Comments Mean Corpuscular Hemoglobin Concent (test code = 786-4) 33.2 31-35 [facility] BrookRed Cell Distribution [place]1223-11-54 06:28:00* Test Item Value Reference Range Interpretation Comments Red Cell Distribution Width (test code = 64297-8) 13.5 11.7 -14.4 [facility] BrookPlatelet Hwhbe7621-58-26 06:28:00* Test Item Value Reference Range Interpretation Comments Platelet Count (test code = 777-3) 187 140-360 [facility] BrookNeutrophils (%) (Auto)2018-07-17 06:28:00 * Test Item Value Reference Range Interpretation Comments Neutrophils (%) (Auto) (test code = 38913-4) 72.8 38.7-80.0 [facility] BrookLymphocytes (%) (Auto)2018-07-17 06:28:00 * Test Item Value Reference Range Interpretation Comments Lymphocytes (%) (Auto) (test code = 736-9) 19.7 18.0-39.1 [facility] BrookMonocytes (%) (Auto)2018-07-17 06:28:00* Test Item Value Reference Range Interpretation Comments Monocytes (%) (Auto) (test code = 5905-5) 6.7 4.4-11.3 [facility] BrookEosinophils (%) (Auto)2018-07-17 06:28:00 * Test Item Value Reference Range Interpretation Comments Eosinophils (%) (Auto) (test code = 713-8) 0.3 0.0-6.0 [facility] BrookBasophils (%) (Auto)2018-07-17 06:28:00* Test Item Value Reference Range Interpretation Comments Basophils (%) (Auto) (test code = 706-2) 0.1 0.0-1.0 [facility] BrookIM GRANULOCYTES %2018-07-17 06:28:00* Test Item Value Reference Range Interpretation Comments IM GRANULOCYTES % (test code = IM GRANULOCYTES %) 0.4 0.0- 1.0 [facility] BrookNeutrophils # (Auto)2018-07-17 06:28:00* Test Item Value Reference Range Interpretation Comments Neutrophils # (Auto) (test code = 751-8) 5.3 2.1-6.9 [facility] BrookLymphocytes # (Auto)2018-07-17 06:28:00* Test Item Value Reference Range Interpretation Comments Lymphocytes # (Auto) (test code = 57477-0) 1.4 1.0-3.2 [facility] BrookMonocytes # (Auto)2018-07-17 06:28:00* Test Item Value Reference Range Interpretation Comments Monocytes # (Auto) (test code = 742-7) 0.5 0.2-0.8 [facility] BrookEosinophils # (Auto)2018-07-17 06:28:00* Test Item Value Reference Range Interpretation Comments Eosinophils # (Auto) (test code = 711-2) 0.0 0.0-0.4 [facility] BrookBasophils # (Auto)2018-07-17 06:28:00* Test Item Value Reference Range Interpretation Comments Basophils # (Auto) (test code = 704-7) 0.0 0.0-0.1 [facility] BrookAbsolute Immature Granulocyte (auto 2018-07-17 06:28:00* Test Item Value Reference Range Interpretation Comments Absolute Immature Granulocyte (auto (xuan t code = Absolute Immature Granulocyte (auto) 0.03 0-0.1 [facility]neyodium Hzsho0862-05-40 06:15:00* Test Item Value Reference Range Interpretation Comments Sodium Level (test code = 2951-2) 142 136-145 [facility] BrookPotassium Lhlky9059-91-54 06:15:00* Test Item Value Reference Range Interpretation Comments Potassium Level (test code = 2823-3) 3.8 3.5-5.1 [facility] BrookChloride Itxpm6544-84-34 06:15:00* Test Item Value Reference Range Interpretation Comments Chloride Level (test code = 2075-0) 106 98-107 [facility] BrookCarbon Dioxide Ujhab2380-54-60 06:15:00* Test Item Value Reference Range Interpretation Comments Carbon Dioxide Level (test code = 2028-9) 29 22-29 [facility] BrookAnion Wtz2991-09-78 06:15:00* Test Item Value Reference Range Interpretation Comments Anion Gap (test code = 49858-1) 10.8 8-16 [facility] BrookBlood Urea Vjtmxoyj1106-39-92 06:15:00* Test Item Value Reference Range Interpretation Comments Blood Urea Nitrogen (test code = 3094-0) 32 7-26 H [facility] BrookCreatinine2019-05-20 06:15:00* Test Item Value Reference Range Interpretation Comments Creatinine (test code = 2160-0) 0.91 0.57-1.11 [facility]/Creatinine Chgjm4522-10-42 06:15:00* Test Item Value Reference Range Interpretation Comments BUN/Creatinine Ratio (test code = 3097-3) 35 6-25 H [facility] BrookEstimat Glomerular Filtration Rate 2018-07-17 06:15:00* Test Item Value Reference Range Interpretation Comments Estimat Glomerular Filtration Rate (test code = 443278331) 59 >60 L Ranges were taken from the National Kidney Disease Education Program and the [facility] Kidney Foundation literature.Reference ranges:60 or greater: Utslmk53-95 ( for 3 consecutive months): Chronic kidney disease 15 or less: Kidney failureAdventHealth Rollins BrookGlucose Xygtr0189-12-01 06:15:00* Test Item Value Reference Range Interpretation Comments Glucose Level (test code = BVQ5137) 119 74-118 H [facility] BrookCalcium Leoff2323-21-39 06:15:00* Test Item Value Reference Range Interpretation Comments Calcium Level (test code = 77596-3) 9.6 8.4-10.2 [facility] Rgzyy0142-92-32 06:15:00* Test Item Value Reference Range Interpretation Comments Sodium Level (test code = 2951-2) 142 136-145 [facility] BrookPotassium Vtmhl4654-47-52 06:15:00* Test Item Value Reference Range Interpretation Comments Potassium Level (test code = 2823-3) 3.8 3.5-5.1 [facility] BrookChloride Dhtfn5284-13-36 06:15:00* Test Item Value Reference Range Interpretation Comments Chloride Level (test code = 2075-0) 106 98-107 [facility] BrookCarbon Dioxide Mjlhw4770-47-65 06:15:00* Test Item Value Reference Range Interpretation Comments Carbon Dioxide Level (test code = 2028-9) 29 22-29 [facility] BrookAnion Xkh1696-79-02 06:15:00* Test Item Value Reference Range Interpretation Comments Anion Gap (test code = 33844-2) 10.8 8-16 [facility] BrookBlood Urea Hsriptng6266-32-87 06:15:00* Test Item Value Reference Range Interpretation Comments Blood Urea Nitrogen (test code = 3094-0) 32 7-26 H [facility] BrookCreatinine2019-05-20 06:15:00* Test Item Value Reference Range Interpretation Comments Creatinine (test code = 2160-0) 0.91 0.57-1.11 [facility] BrookBUN/Creatinine Kaive9204-22-30 06:15:00* Test Item Value Reference Range Interpretation Comments BUN/Creatinine Ratio (test code = 3097-3) 35 6-25 H [facility] BrookEstimat Glomerular Filtration Rate 2018-07-17 06:15:00* Test Item Value Reference Range Interpretation Comments Estimat Glomerular Filtration Rate (test code = 466701266) 59 >60 L Ranges were taken from the National Kidney Disease Education Program and the [facility] literature.Reference ranges:60 or greater: Sosajc61-50 ( for 3 consecutive months): Chronic kidney disease 15 or less: Kidney failureAdventHealth Rollins BrookGlucose Gyxxv4736-23-45 06:15:00* Test Item Value Reference Range Interpretation Comments Glucose Level (test code = KWN8060) 119 74-118 H [facility] BrookCalcium Onpso5255-42-84 06:15:00* Test Item Value Reference Range Interpretation Comments Calcium Level (test code = 39910-8) 9.6 8.4-10.2 [facility] BrookHemoglobin A1c Oyzlxpe1835-80-46 13:46:00 * Test Item Value Reference Range Interpretation Comments Hemoglobin A1c Percent (test code = Hemoglobin A1c Percent) 5.5 4.0-7.0 [facility] BrookTriglycerides Llrgt1916-97-86 13:46:00* Test Item Value Reference Range Interpretation Comments Triglycerides Level (test code = 2571-8) 77 0-149 [facility] BrookCholesterol Glayo4516-58-12 13:46:00* Test Item Value Reference Range Interpretation Comments Cholesterol Level (test code = 2093-3) 168 0-199 Less than 200 mg/dL Low Svdh139 - 239 mg/dL Borderline Bsur779 m g/dl and greater High Risk [facility] BrookLDL Pdylkgthxck4139-05-32 13:46:00* Test Item Value Reference Range Interpretation Comments LDL Cholesterol (test code = 2089-1) 84 60-130 [facility] BrookHDL Srvwfvugvsa7594-98-71 13:46:00* Test Item Value Reference Range Interpretation Comments HDL Cholesterol (test code = 2085-9) 69 40-60 H [facility] BrookCholesterol/HDL Mztvn3468-46-65 13:46:00 * Test Item Value Reference Range Interpretation Comments Cholesterol/HDL Ratio (test code = 9830-1) 2.4 3.0-3.6 L [facility] BrookHemoglobin A1c Chkpikb9693-35-24 13:46:00 * Test Item Value Reference Range Interpretation Comments Hemoglobin A1c Percent (test code = Hemoglobin A1c Percent) 5.5 4.0-7.0 [facility] BrookTriglycerides Osnlt6954-09-82 13:46:00* Test Item Value Reference Range Interpretation Comments Triglycerides Level (test code = 2571-8) 77 0-149 [facility] BrookCholesterol Pmbhn8856-27-66 13:46:00* Test Item Value Reference Range Interpretation Comments Cholesterol Level (test code = 2093-3) 168 0-199 Less than 200 mg/dL Low Jbqc191 - 239 mg/dL Borderline Sxnr642 m g/dl and greater High Risk [facility] BrookLDL Avgzeesykdk2103-63-19 13:46:00* Test Item Value Reference Range Interpretation Comments LDL Cholesterol (test code = 2089-1) 84 60-130 [facility] BrookHDL Vdmzgezhckt6580-24-68 13:46:00* Test Item Value Reference Range Interpretation Comments HDL Cholesterol (test code = 2085-9) 69 40-60 H [facility] BrookCholesterol/HDL Kytoj2616-73-72 13:46:00 * Test Item Value Reference Range Interpretation Comments Cholesterol/HDL Ratio (test code = 9830-1) 2.4 3.0-3.6 L [facility] BrookHAND 3+ VIEWS IWTJI4971-10-62 12:27:00 [facility] [address] [place] [address] Patient Name: PARTH MARTINEZ MR #: [id number] : 1935 Age/Sex: 82/F Req #: [id number] Adm Physician: Ordered by: RADHA ISRAEL MD Report #: [id number] Location: ER Room/Bed: Procedure: [id number] DX/ HAND 3+ VIEWS RIGHT Exam Date: 07/16/18 Exam Time: 1 135 REPORT STATUS: Signed RIGHT HAND X-RAY - 3 VIEWS HISTORY: SWELLING AND PAIN [id number] COMPARISON: None available. FINDINGS: Bones: No acute displaced fracture. Osseous alignment is within normal limits. Joints: Moderate to severe degenerative changes with subcortical cysts including there are right first intracarpal focal lesion and carpometacarpal joint and most of the carpal joints. Mild degenerative changes of the mid and distal interp halangeal joints. No cortical erosions. Soft tissues: There appears to be diffuse soft tissue swelling in the right hilum. IMPRESSION: No acute radiographic abnormality. Extensive degenerative changes in the right hand. No cortical erosions. Signed by: Dr. Haylee Redding M.D. on 12:29 PM Dictated By: HAYLEE REDDING MD 28 Transcribed By: DOMINGO on 07/16/181228 COPY TO: RADHA ISRAEL MD Erythrocyte Sedimentation Medq2226-12-58 12:23:00* Test Item Value Reference Range Interpretation Comments Erythrocyte Sedimentation Rate (test code = 4537-7) 86 0- 20 H [facility] BrookErythrocyte Sedimentation Uvbu3254-80-16 12:23:00* Test Item Value Reference Range Interpretation Comments Erythrocyte Sedimentation Rate (test code = 4537-7) 86 0- 20 H [facility] BrookTotal Mwtswbrts5620-11-87 12:07:00* Test Item Value Reference Range Interpretation Comments Total Bilirubin (test code = 1975-2) 0.5 0.2-1.2 [facility] BrookAspartate Amino Transf (AST/SGOT) 2018-07-16 12:07:00* Test Item Value Reference Range Interpretation Comments Aspartate Amino Transf (AST/SGOT) (test code = Aspartate Amino Transf (AST/SGOT)) 14 5-34 [facility] BrookAlanine Aminotransferase (ALT/SGPT) 2018-07-16 12:07:00* Test Item Value Reference Range Interpretation Comments Alanine Aminotransferase (ALT/SGPT) (test code = 1742-6) 14 0-55 [facility] BrookTotal Krqtetl9129-20-24 12:07:00* Test Item Value Reference Range Interpretation Comments Total Protein (test code = 2885-2) 7.1 6.5-8.1 [facility] BrookAlbumin2019-05-19 12:07:00* Test Item Value Reference Range Interpretation Comments Albumin (test code = 1751-7) 3.4 3.5-5.0 L [facility] BrookGlobulin2019-05-19 12:07:00* Test Item Value Reference Range Interpretation Comments Globulin (test code = 07318-1) 3.7 2.3-3.5 H [facility] BrookAlbumin/Globulin Rqeux4852-28-71 12:07:00 * Test Item Value Reference Range Interpretation Comments Albumin/Globulin Ratio (test code = 1759-0) 0.9 0.8-2.0 [facility] BrookAlkaline Slekusgmekb7855-44-13 12:07:00* Test Item Value Reference Range Interpretation Comments Alkaline Phosphatase (test code = 6768-6) 77 40-150 [facility] BrookTotal Lrcrqszvs6230-23-14 12:07:00* Test Item Value Reference Range Interpretation Comments Total Bilirubin (test code = 1975-2) 0.5 0.2-1.2 [facility] BrookAspartate Amino Transf (AST/SGOT) 2018-07-16 12:07:00* Test Item Value Reference Range Interpretation Comments Aspartate Amino Transf (AST/SGOT) (test code = Aspartate Amino Transf (AST/SGOT)) 14 5-34 [facility] BrookAlanine Aminotransferase (ALT/SGPT) 2018-07-16 12:07:00* Test Item Value Reference Range Interpretation Comments Alanine Aminotransferase (ALT/SGPT) (test code = 1742-6) 14 0-55 [facility] BrookTotal Zfdeyun3185-39-03 12:07:00* Test Item Value Reference Range Interpretation Comments Total Protein (test code = 2885-2) 7.1 6.5-8.1 [facility] BrookAlbumin2019-05-19 12:07:00* Test Item Value Reference Range Interpretation Comments Albumin (test code = 1751-7) 3.4 3.5-5.0 L [facility] BrookGlobulin2019-05-19 12:07:00* Test Item Value Reference Range Interpretation Comments Globulin (test code = 62487-7) 3.7 2.3-3.5 H [facility] BrookAlbumin/Globulin Modry4783-91-07 12:07:00 * Test Item Value Reference Range Interpretation Comments Albumin/Globulin Ratio (test code = 1759-0) 0.9 0.8-2.0 [facility] BrookAlkaline Qemkdeaqycq7206-71-98 12:07:00* Test Item Value Reference Range Interpretation Comments Alkaline Phosphatase (test code = 6768-6) 77 40-150 [facility]
--- OUTSIDE RECORDS SUMMARY | 2019-11-13 12:07 | XMS REPORT | Continuity of Care Document ---
Author Author Scotty Efrem linkedFA Bartolo, PARTH A Organization [employer] Address Unknown Phone Unavailable Care Team Providers Care Applications Development Consultant Name Role Phone [employer] 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 Active Prob valentina 10/16/2019 Zoran Barton Cervical radiculopathy at C7 A ctive Problem Zoran Barton Shortness of breath Active Problem 10/16/2019 Zoran Barton Primary osteoarthritis involving multiple joints Active Problem 10/16/2019 Zoran Barton Postmenopausal Active Problem 10/16/2019 Zoran Barton Age related osteoporosis Active Problem 10/16/2019 Zoran Barton Low vitamin D level Active Problem 10/16/2019 Zoran Barton Trigger finger, right index finger Active Problem Zoran Barton Trigger finger, right ring finger Active Problem Zoran Barton Osteoporosis Active Problem 10/16/2019 Zoran Barton Encounter for screening for other viral diseases Active Diagnosis 11/11/2018 Zoran Barton Encounter for screening for other bacterial diseases Active Diagnosis 11/11/2018 Zoran Barton Encounter for screening for infectious a nd parasitic diseases, unspecified Active Diagnosis 11/11/2018 Zoran Barton Encounter for screening for other infect ious and parasitic diseases Active Diag nosis 11/11/2018 Zoran Barton Screening for tuberculosis Act adriana Diagnosis 0 11/04/2018 Zoran Barton Medications Medication Details Route Status Patient Instructions Ordering Provider Order Date Source Folic Acid 1 tablet Orally Active 1MG Orally Once a day Barrera 08/08/2019 Zoran Barton Methotrexate 6 tablet Orally Active 2.5 MG Orally Once a we shani Barton 06/11/2019 Zoran Barton Folic Acid 1 tablet Orally Active 1MG Orally Once a day Barrera 06/11/2019 Zoran Barton Tizanidine HCl 1 tablet Orally Active 4mg Orally twice a day Barrera 06/11/2019 Zoran Barton Gabapentin take 3 capsules by mouth twice daily Orally Active 300MG Orally bid Barrera 06/11/2019 Zoran Barton Methotrexate 6 tablet Orally Active 2.5 MG Orally Once a we ek Barton 06/06/2019 Zoran Barton Gabapentin take 3 capsules by mouth twice daily Orally Active 300MG Orally bid Barton 06/06/2019 Zoran Barton Methotrexate 6 tablet Orally Active 2.5 MG Orally Once a we ek Barrera 06/01/2019 Zoran Barton Folic Acid 1 tablet Orally Active 1MG Orally Once a day Dustin 03/24/2018 Zoran Barton Medrol 1 tablet with food or m ilk in the morning Orally Active 4 MG Orally Dustin 11/18/2017 Zoran Barton ORENCIA SQ 125mg SUBCUTANEOUSLY Active 125MG SUBCUTANEOUSLY ON CE A WEEK Dustin 07/26/2017 Zoran Barton Gabapentin 3 capsules Orally Active 300 MG Orally TWO times a day Dustin 06/29/2017 Zoran Barton Methotrexate 6 tablet Orally Active 2.5 MG Orally Once a we ek Dustin 06/27/2017 Zoran Barton ORENCIA SQ 125mg SUBCUTANEOUSLY Active 125MG SUBCUTANEOUSLY ON CE A WEEK Dustin 02/23/2017 Zoran Barton ORENCIA SQ 125MG SUBCUTANEOUSLY Active 125MG SUBCUTANEOUSLY ON CE A WEEK Barton 02/09/2017 Zoran Barton Folic Acid 1 tablet Orally Active 1 MG Orally Once a day Dustin 12/17/2016 Zoran Barton Methotrexate take 5 tablets Orally Active 2.5MG Orally ONCE A WEEK Barton 09/17/2016 Zoran Barton Vitamin D (Ergocalciferol) 1 c apsule Orally Active 09612 UNIT Orally One a week Dustin 07/09/2016 Zoran Barton Gabapentin 3 capsules Orally Active 300 MG Orally TWO times a day [place] 04/05/2016 Zoran Barton ORENCIA SQ 125mg SUBCUTANEOUSLY Active 125MG SUBCUTANEOUSLY ON CE A WEEK Dustin 02/06/2016 Zoran Barton Furosemide 1 tablet NA Active 20 [facility] S[facility] 1 tablet NA Active 40mg once a day [facility] Mick Tizanidine HCl 1 tablet Orally Active 4mg Orally twice a day Dustin Zoran Mick Tramadol one tablet orally Active 50 mg orally needed Dustin Dev Barton Prolia as directed Subcutaneous Active 60 mg Subcutaneous q 6 months Barrera Zoran Barton Levothyroxine Sodium 1 tablet every morning on an empty stomach Orally Active 100 MCG Orally Once a day Yous af Zoran Mick Simvastatin 1 tablet NA Active 40 mg once a day Barrera Dev smith Barton Spironolactone 1 tablet NA Active 25mg once a day Barrera Dev Barton Tradjenta 1 tablet Orally Active 5 MG Orally Once a day Dustin Dev smith Barton Folic Acid 1 tablet Orally Active 1MG Orally Once a day Dustin Dev Barton Gabapentin take 3 capsules by mouth twice daily Orally Active 300MG Orally bid Barrera Zorancecilia Barton Tizanidine HCl TAKE 1 TABLET B Y MOUTH TWICE DAILY NA Active 4M G Dustin Zoarn Mick Methotrexate 6 tablet Orally Active 2.5 MG Orally Once a we ek Horn Zoran Barton Tramadol one tablet orally Active 50 mg orally needed Barrera Dev sarah Barton Levothyroxine Sodium 1 tablet every morning on an empty stomach Orally Active 88 MCG Orally Once a day Ambri z Zoran Barton ORENCIA SQ 125mg SUBCUTANEOUSLY Active 125MG SUBCUTANEOUSLY ON CE A WEEK Barrera Zoran Barton Gabapentin 3 capsules Orally Active 300 MG Orally TWO times a day Dustin Zoran Barton Nateglinide 1 tablet before me als Orally Active 60 MG Orally Three times a day Bruce Barton Allergies, Adverse Reactions, Alerts Substance Category Reaction Severity Reaction type Status Date Reported Comments Source Vicodin Adverse Reaction Info Not Available Adverse Reaction Active 06/01/2019 Zoran Barton Quinidine Sulfate Adverse Reac tion hives Adver se Reaction Active 06/01/2019 Zoran Barton Azulfidine Adverse Reaction Info Not Available Adverse Reaction Active 06/01/2019 Zoran Barton Immunizations No Data Provided for This Section Results No Data Provided for This Section Pathology Reports No Data Provided for This Section Diagnostic Reports No Data Provided for This Section Consultation Notes No Data Provided for This Section Discharge Summaries No Data Provided for This Section History and Physicals No Data Provided for This Section Vital Signs Vital Sign Value Date Comments Source Weight 217 06/01/2019 Zoran Barton Height 61 0 06/01/2019 Zoran Barton Heart Rate 67 06/01/2019 Zoran Barton Diastolic (mm Hg) 74 06/01/2019 Zoran Barton Systolic (mm Hg) 134 06/01/2019 Zoran Barton Weight 236.9 02/09/2019 Zoran Barton Height 61 1 04/12/2018 Zoran Barton Temperature Oral (F) 98.5 F 02/09/2019 Zoran Barton Heart Rate 68 02/09/2019 Zoran Barton Diastolic (mm Hg) 72 02/09/2019 Zoran Barton Systolic (mm Hg) 144 02/09/2019 Zoran Barton Weight 224.4 11/03/2018 Zoran Barton Height 61 0 11/03/2018 Zoran Barton Temperature Oral (F) 97.9 F 11/03/2018 Zoran Barton Heart Rate 67 11/03/2018 Zoran Barton Diastolic (mm Hg) 78 11/03/2018 Zoran Barton Systolic (mm Hg) 122 11/03/2018 Zoran Barton Weight 225.6 08/03/2018 Zorna Barton Height 61 0 08/03/2018 Zoran Barton Temperature Oral (F) 97.0 F 08/03/2018 Zoran Barton Heart Rate 72 08/03/2018 Zoran Barton Diastolic (mm Hg) 64 08/03/2018 Zoran Barton Systolic (mm Hg) 126 08/03/2018 Zoran Barton Weight 223.2 04/26/2018 Zoran Barton Height 61 0 04/26/2018 Zoran Barton Temperature Oral (F) 97.6 F 04/26/2018 Zoran Barton Heart Rate 64 04/26/2018 Zoran Barton Diastolic (mm Hg) 60 04/26/2018 Zoran Barton Systolic (mm Hg) 118 04/26/2018 Zoran Barton Weight 236.1 01/25/2018 Zoran Barton Height 61 1 03/27/2017 Zoran Barton Temperature Oral (F) 97.0 F 01/25/2018 Zoran Barton Heart Rate 70 01/25/2018 Zoran Barton Diastolic (mm Hg) 60 01/25/2018 Zoran Barton Systolic (mm Hg) 130 01/25/2018 Zoran Barton Weight 239 11/18/2017 Zoran Barton Height 61 0 11/18/2017 Zoran Barton Temperature Oral (F) 97.1 [...] Weight 239.8 04/19/2017 Zoran Barton Height 62 0 04/19/2017 Zoran Barton Temperature Oral (F) 97.5 F 04/19/2017 Zoran Barton Heart Rate 70 04/19/2017 Zoran Barton Diastolic (mm Hg) 62 04/19/2017 Zoran Barton Systolic (mm Hg) 122 04/19/2017 Zoran Barton Weight 241 01/18/2017 Zoran Barton Height 61 1 03/20/2016 Zoran Barton Temperature Oral (F) 97.6 F 01/18/2017 Zoran Barton Heart Rate 68 01/18/2017 Zoran Barton Diastolic (mm Hg) 74 01/18/2017 Zoran Barton Systolic (mm Hg) 124 01/18/2017 Zoran Barton Encounters No Data Provided for This Section Procedures No Data Provided for This Section Assessment and Plan No Data Provided for This Section Plan of Care No Data Provided for This Section Social History No Data Provided for This Section Family History No Data Provided for This Section Advance Directives No Data Provided for This Section Functional Status No Data Provided for This Section
--- NOTE | 2019-11-13 12:24 | Emergency Department Note ---
History of Present Illnes History of Present Illness Chief Complaint: caputo,rgt head/facial/neck /rgt upper arm pain s/p trip and fall History of Present Illness This is a 84 year old female. was doing well until 1 month ago then increase losing balance then fell , rgt elbow pain. then 4 days ago trip fell then rgt head/face/neck/rgt upper arm pain, caputo. no loc Historian: Patient Arrival Mode: Car History limited by: condition of the patient (normal) Furniture Crater Required: No Onset (how long ago): day(s) (4) Location: see above Quality: sharp Radiation: Reports non-radiation Severity: moderate Onset quality: sudden Duration (how long): day(s) (4) Timing of current episode: constant Progression: partially resolved Chronicity: new Context: Reports trauma/injury; Denies recent illness, Denies recent surgery, Denies recent immobilization, Denies recent travel, Denies new medications, Denies hx of DVT/PE, Denies non- compliance w/ medications Relieving factors: none Exacerbating factors: movement Associated symptoms: Reports denies other symptoms Treatments prior to arrival: none Past Medical/Family History Physician Review I have reviewed the patient's past medical and family history. Any updates have been documented here. Past Medical History Recent Fever: No Clinical Suspicion of Infectio: No New/Unexplained Change in Ment: No Past Medical History: Hypertension, Diabetes, Hypothyroidism, Cancer, GERD, Hyperlipedemia, Osteoarthritis Other Medical History: KIDNEY CANCER BREAST CANCER Past Surgical History: Knee Replacement, Mastectomy Other Surgery: RIGHT AND LEFT KNEE REPLACEMENT L HAND SURGERY L NEPHRECTOMY L Mastectomy Social History Smoking Cessation: Never Smoker Counseling Performed: No Any Illegal Drug Use: No TB Exposure/Symptoms: No Physically hurt or threatened: No Family History Family history of heart diseas: No Other Last Tetanus: UTD Any Pre-Existing Lines (PICC,: No Is patient up to date on immun: No Review of Systems Review of Systems Constitutional: Reports no symptoms EENTM: Reports no symptoms Cardiovascular: Reports no symptoms Respiratory: Reports no symptoms Gastrointestinal: Reports no symptoms Genitourinary: Reports no symptoms Musculoskeletal: Reports as per HPI Integumentary: Reports no symptoms Neurological: Reports as per HPI Psychological: Reports no symptoms Endocrine: Reports no symptoms Hematological/Lymphatic: Reports no symptoms Review of other systems: All other systems negative Physical Exam Related Data Allergies: Coded Allergies: quinine (Verified Allergy, Mild, HIVES, 03/12/16) Sulfa (Sulfonamide Antibiotics) (Verified Allergy, Unknown, 08/08/18) acetaminophen (Verified Allergy, Unknown, 08/08/18) hydrocodone (Verified Allergy, Unknown, 08/08/18) Vital signs reviewed: Yes Physical Exam CONSTITUTIONAL Constitutional: Present well-developed, Present well-nourished HENT HENT: Present normocephalic, Present oropharynx clear/moist, Present nose normal, Present other (rgt head/periorbital tenderness/ecchymosis) HENT L/R: Present left ext ear normal, Present right ext ear normal EYES Eyes: Reports PERRL, Reports conjunctivae normal NECK Neck: Present ROM normal, Present supple, Present other (mild c spine tenderness) PULMONARY Pulmonary: Present effort normal, Present breath sounds normal CARDIOVASCULAR Cardiovascular: Present regular rhythm, Present heart sounds normal, Present capillary refill normal, Present normal rate GASTROINTESTINAL Abdominal: Present soft, Present nontender, Present bowel sounds normal GENITOURINARY Genitourinary: Present exam deferred SKIN Skin: Present warm, Present dry MUSCULOSKELETAL Musculoskeletal: Present ROM normal, Present tenderness (rgt upper arm) NEUROLOGICAL Neurological: Present alert, Present oriented x 3, Present no gross motor or s ensory deficits PSYCHOLOGICAL Psychological: Present mood/affect normal, Present judgement normal Results Imaging Imaging results reviewed: Yes Impressions [place] [id number] Patient Name: PARTH MARTINEZ MR #: [id number] : 1935 Age/Sex: 84/F Req #: [id number] Adm Physician: Ordered by: DANIEL VYAS Report #: [id number] Location: [facility] [place] Room/Bed: Procedure: [id number] HOPD/CT BRAIN WO-HOPD Exam Date: 11/13/19 Exam Time: 1225 REPORT STATUS: Signed CT BRAIN WO-HOPD HISTORY: Fall COMPARISON: Report from head CT dated 03/12/2016 Technique: Noncontrast axial scans were obtained from skull base to the vertex. Coronal and sagittal reconstructions obtained from the axial data. One or more of the following dose reduction techniques were used: Automated exposure control, adjustment of the mA and/or kV according to patient size, and/or utilization of iterative reconstruction technique. DISCUSSION: Scalp/Skull: Possible left temporal scalp hematoma. No calvarial fracture. Brain sulci: Mildly prominent. Ventricles: Compensatory dilatation. Extra-axial spaces: No masses or fluid collections. Carotid and vertebral artery calcifications are present. Parenchyma: Mild bilateral deep white matter hypodensity is likely chronic microvascular ischemic change. Otherwise, no masses, hemorrhage, or large vascular territory acute infarct. Dural sinuses: No abnormal densities. Sellar/Suprasellar region: Intact. Skull base: Intact. Incidental findings: None. IMPRESSION: 1. No acute intracranial abnormalities. 2. Mild supratentorial chronic microvascular ischemic change. Mild generalized cerebral volume loss. Signed by: Dr. Cristino Enamorado M.D. on 11/13/2019 12:37 PM Dictated By: CRISTINO ENAMORADO MD 1237 Transcribed By: DOMINGO on 11/13/19 1237 COPY TO: DANIEL VYAS~ [place] [id number] Patient Name: PARTH MARTINEZ MR #: [id number] : 1935 Age/Sex: 84/F Req #: [id number] Adm Physician: Ordered by: DANIEL VYAS Report #: [id number] Location: [facility] [place] Room/Bed: Procedure: [id number] HOPD/CT C-SPINE W/O - HOPD Exam Date: 11/13/19 Exam Time: 1234 REPORT STATUS: Signed CT C-SPINE W/O - HOPD HISTORY: Trauma COMPARISON: None. TECHNIQUE: CT of the cervical spine without contrast. Sagittal and coronal reformations were created. One or more of the following dose reduction techniques were used: Automated exposure control, adjustment of the mA and/or kV according to patient size, and/or utilization of iterative reconstruction technique. FINDINGS: Cervical lordosis is preserved. There is no significant scoliosis. Mild bone demineralization limits evaluation. No definite acute fracture or compression deformity is seen. The craniocervical junction is intact. No gross spinal canal masses are seen. The paravertebral and paraspinal soft tissues are unremarkable. Degenerative changes: Multilevel advanced spondylotic changes are present. Grade 1 anterolisthesis of C7 on T1 is due to facet arthrosis. Multilevel severe bilateral foraminal stenoses are due to uncovertebral and facet arthrosis. There is at least mild canal stenosis at C5-C6 and C6-C7 due to posterior disc osteophyte complexes. Prominent atlantoaxial arthrosis is present as well. Incidental findings: Mild to moderate bilateral carotid bulb calcified plaque is present. IMPRESSION: 1. No acute osseous abnormalities. 2. Degenerative changes as described above. Signed by: Dr. Cristino Enamorado M.D. on 11/13/2019 12:42 PM Dictated By: CRISTINO ENAMORADO MD 1242 Transcribed By: DOMINGO on 11/13/19 1242 COPY TO: DANIEL VYAS~ [place] [id number] Patient Name: PARTH MARTINEZ MR #: [id number] : 1935 Age/Sex: 84/F Req #: [id number] Adm Physician: Ordered by: DANIEL VYAS Report #: [id number] Location: [facility] Room/Bed: Procedure: [id number] HOPD/CT MAX/FACPARANASA SIN WO-HOPD Exam Date: 11/13/19 Exam Time: 1253 REPORT STATUS: Signed CT MAX/FACPARANASA SIN WO-HOPD HISTORY: Trauma COMPARISON: Concurrent head and cervical spine CT TECHNIQUE: Axial CT images through the face were obtained without contrast. Coronal/sagittal reformations were created. One or more of the following dose reduction techniques were used: Automated exposure control, adjustment of the mA and/or kV according to patient size, and/or utilization of iterative reconstruction technique. DISCUSSION: Mild superficial right periorbital edema is present. No acute fracture is seen. Prominent right temporomandibular joint degenerative changes are present. The orbits are intact. Intraorbital contents are grossly unremarkable. The paranasal sinuses are clear. IMPRESSION: No acute osseous abnormalities. Signed by: Dr. Cristino Enamorado M.D. on 11/13/2019 1:25 PM Dictated By: CRISTINO ENAMORADO MD 1325 Transcribed By: DOMINGO on 11/13/19 1325 COPY TO: DANIEL VYAS~ [place] [id number] Patient Name: PARTH MARTINEZ MR #: [id number] : 1935 Age/Sex: 84/F Req #: [id number] Adm Physician: Ordered by: DANIEL VYAS Report #: [id number] Location: [facility] Room/Bed: Procedure: [id number] HOPD/HUMERUS 2VIEW RT -HOPD Exam Date: 11/13/19 Exam Time: 1407 REPORT STATUS: Signed Exam: HUMERUS 2VIEW RT -HOPD History: Pain Comparison: Chest radiograph 08/08/2018 Findings: No fractures of acute osseous abnormalities. No gross malalignment of the right shoulder or right elbow. Moderate degenerative changes of the acromioclavicular and glenohumeral joints. Soft tissues are unremarkable. Impression: 1. No acute osseous abnormality. 2. 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 Signed by: Dr. Heather Todd M.D. on 11/13/2019 2:17 PM Dictated By: HEATHER TODD MD 16 Transcribed By: DOMINGO on 11/13/191416 COPY TO: DANIEL VYAS~ Assessment & Plan Medical Decision Making MDM see below Assessment & Plan Final Impression: (1) Multiple contusions (2) Ambulatory dysfunction (3) Cervical strain, acute Depart Disposition: HOME, SELF-long term Meds Active Scripts Cyclobenzaprine Hcl (FLEXERIL) 5 Mg Tablet, 5 MG PO Q8H PRN for MUSCLE SPASMS, #15 TAB Prov:DANIEL VYAS 11/13/19 Prednisone (PREDNISONE) 20 Mg Tab, 60 MG PO DAILY PRN for MODERATE PAIN (4-6), #15 TAB take all 3 20mg pills at once Prov:DANIEL VYAS 11/13/19 Furosemide (FUROSEMIDE) 40 Mg Tablet, 20 MG PO Daily, #90 TAB Prov:MARCO PRATT MD 03/15/16 Reported Medications Denosumab (PROLIA) 60 Mg/1 Ml Disp.syrin, SC ONCE 08/08/18 Abatacept (ORENCIA) 125 Mg/1 Ml Disp.syrin, MG SC ONCE 08/08/18 Linagliptin (TRADJENTA) 5 Mg Tablet, MG PO DAILY 08/08/18 Tramadol Hcl* (ULTRAM 50MG*) 50 Mg Tab, 50 MG PO Q8H PRN for MODERATE PAIN (4- 6), TAB 07/18/18 Hydroxychloroquine Sulfate (HYDROXYCHLOROQUINE SULFATE) 200 Mg Tablet, 200 MG PO BID 03/12/16 Methotrexate Sodium (METHOTREXATE) 2.5 Mg Tablet, 2.5 MG PO UD, #30 TAB 12/29/15 Folic Acid (FOLIC ACID) 1 Mg Tablet, 1 MG PO DAILY, #30 TAB 12/29/15 Gabapentin (Gabapentin) 300 Mg Capsule, 900 MG PO Q12H 06/10/11 Simvastatin (Simvastatin) 20 Mg Tablet, 40 MG PO DAILY 06/10/11 Levothyroxine Sodium (LEVOTHYROXINE SODIUM) 100 Mcg Vial, 88 MCG PO DAILY 06/10/11 Pantoprazole Sodium (Pantoprazole Sodium) 40 Mg Tablet.dr, 40 MG PO DAILY 06/10/11 Spironolactone (Spironolactone) 25 Mg Tablet, 25 MG PO DAILY 06/10/11 DANIEL VYAS Nov 13, 2019 12:24
--- NOTE | 2019-11-13 12:40 | Diagnostic Imaging Report ---
CT BRAIN [facility] HISTORY: Fall COMPARISON: Report from head CT dated 03/12/2016 Technique: Noncontrast axial scans were obtained from skull base to the vertex. Coronal and sagittal reconstructions obtained from the axial data. One or more of the following dose reduction techniques were used: Automated exposure control, adjustment of the mA and/or kV according to patient size, and/or utilization of iterative reconstruction technique. DISCUSSION: Scalp/Skull: Possible left temporal scalp hematoma. No calvarial fracture. Brain sulci: Mildly prominent. Ventricles: Compensatory dilatation. Extra-axial spaces: No masses or fluid collections. Carotid and vertebral artery calcifications are present. Parenchyma: Mild bilateral deep white matter hypodensity is likely chronic microvascular ischemic change. Otherwise, no masses, hemorrhage, or large vascular territory acute infarct. Dural sinuses: No abnormal densities. Sellar/Suprasellar region: Intact. Skull base: Intact. Incidental findings: None. IMPRESSION: 1. No acute intracranial abnormalities. 2. Mild supratentorial chronic microvascular ischemic change. Mild generalized cerebral volume loss. Signed by: Dr. Cristino Enamorado M.D. on 11/13/2019 12:37 PM
--- NOTE | 2019-11-13 12:45 | Diagnostic Imaging Report ---
CT C-SPINE W/O - HOPD HISTORY: Trauma COMPARISON: None. TECHNIQUE: CT of the cervical spine without contrast. Sagittal and coronal reformations were created. One or more of the following dose reduction techniques were used: Automated exposure control, adjustment of the mA and/or kV according to patient size, and/or utilization of iterative reconstruction technique. FINDINGS: Cervical lordosis is preserved. There is no significant scoliosis. Mild bone demineralization limits evaluation. No definite acute fracture or compression deformity is seen. The craniocervical junction is intact. No gross spinal canal masses are seen. The paravertebral and paraspinal soft tissues are unremarkable. Degenerative changes: Multilevel advanced spondylotic changes are present. Grade 1 anterolisthesis of C7 on T1 is due to facet arthrosis. Multilevel severe bilateral foraminal stenoses are due to uncovertebral and facet arthrosis. There is at least mild canal stenosis at C5-C6 and C6-C7 due to posterior disc osteophyte complexes. Prominent atlantoaxial arthrosis is present as well. Incidental findings: Mild to moderate bilateral carotid bulb calcified plaque is present. IMPRESSION: 1. No acute osseous abnormalities. 2. Degenerative changes as described above. Signed by: Dr. Cristino Enamorado M.D. on 11/13/2019 12:42 PM
--- NOTE | 2019-11-13 13:28 | Diagnostic Imaging Report ---
[facility] COMPARISON: Concurrent head and cervical spine CT TECHNIQUE: Axial CT images through the face were obtained without contrast. Coronal/sagittal reformations were created. One or more of the following dose reduction techniques were used: Automated exposure control, adjustment of the mA and/or kV according to patient size, and/or utilization of iterative reconstruction technique. DISCUSSION: Mild superficial right periorbital edema is present. No acute fracture is seen. Prominent right temporomandibular joint degenerative changes are present. The orbits are intact. Intraorbital contents are grossly unremarkable. The paranasal sinuses are clear. IMPRESSION: No acute osseous abnormalities. Signed by: Dr. Cristino Enamorado M.D. on 11/13/2019 1:25 PM
--- NOTE | 2019-11-13 14:20 | Diagnostic Imaging Report ---
Exam: HUMERUS 2VIEW RT -HOPD History: Pain Comparison: Chest radiograph 08/08/2018 Findings: No fractures of acute osseous abnormalities. No gross malalignment of the right shoulder or right elbow. Moderate degenerative changes of the acromioclavicular and glenohumeral joints. Soft tissues are unremarkable. Impression: 1. No acute osseous abnormality. 2. 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 Signed by: Dr. You Todd M.D. on 11/13/2019 2:17 PM
[2019-11-13] MEDS ORDERED: PREDNISONE20 MG PO (14:45)
[2019-11-13] MEDS ORDERED: CYCLOBENZAPRINE5 MG PO (14:47)
== END 2019-11-13 15:02 | disposition home or self-care (01) ==
LOC: FSED 12:04
DX: S00.83XA Contusion of other part of head, initial encounter (principal); S13.4XXA Sprain of ligaments of cervical spine, initial encounter; M25.511 Pain in right shoulder; M25.521 Pain in right elbow; R26.9 Unspecified abnormalities of gait and mobility; W01.0XXA Fall on same level from slipping, tripping and stumbling without subsequent striking against object, initial encounter; Y92.008 Other place in unspecified non-institutional (private) residence as the place of occurrence of the external cause; I10 Essential (primary) hypertension; E11.9 Type 2 diabetes mellitus without complications; E78.5 Hyperlipidemia, unspecified; Z85.3 Personal history of malignant neoplasm of breast; Z85.528 Personal history of other malignant neoplasm of kidney; Z96.653 Presence of artificial knee joint, bilateral
CPT/HCPCS: 70450; 70486; 72125; 99283

== ENCOUNTER → 2020-02-15 | Day surgery (SDC) | payer MEDICARE ==
[2020-02-01 14:28] LABS: BASOPHILS % 0.5 % (0.0-1.0); EOSINOPHILS # (AUTO) 0.1 (0.0-0.4); EOSINOPHILS % 2.2 % (0.0-6.0); HEMATOCRIT 38.7 % (34.2-44.1); HEMOGLOBIN 12.4 g/dL (12.0-16.0); LYMPHOCYTES # (AUTO) 1.7 (1.0-3.2); MEAN CORPUSCULAR HEMOGLOBIN 32.5 pg (28-32); MEAN CORPUSCULAR VOLUME 101.6 fL (81-99); MONOCYTES # (AUTO) 0.5 (0.2-0.8); MONOCYTES % 7.9 % (4.4-11.3); NEUTROPHILS # (AUTO) 3.6 (2.1-6.9); NEUTROPHILS % 60.1 % (38.7-80.0); PLATELET COUNT 182 x10e3/uL (140-360); RED BLOOD COUNT 3.81 x10e6/uL (3.6-5.1); RED CELL DISTRIBUTION WIDTH 13.6 % (11.7-14.4)
[2020-02-01 14:43] LABS: ANION GAP 12.9 mmol/L (8-16); CALCIUM 10.2 mg/dL (8.4-10.2); CREATININE, SERUM 1.18 mg/dL (0.57-1.11); POTASSIUM 3.9 mmol/L (3.5-5.1)
[~2020-02-15] MED LIST changes: +BUPIVACAINE HCL 0.5% INJ 30 ML VIAL INJ ONE; +CEFAZOLIN SOD 1 GM/NS 50ML 100 ML IV ONE; +CYCLOBENZAPRINE5 MG PO; +DEXAMETHASONE SOD PHOS INJ 4 MG/ML VIAL ONE; +ONDANSETRON HCL INJ 2MG/ML 2ML 2 MG/ML VIAL ONE; +PREDNISONE20 MG PO; +PROPOFOL IV EMULSION 10 MG/ML 20 ML VIAL ONE; +SEVOFLURANE INHAL SOLN 250 ML PEN BTL ONE; +STARLIX120 MG PO; +TIZANIDINE HCL4 M1 PO
[2020-02-15 13:45] VITALS: BP 141/73
== END | disposition home or self-care (01) ==
LOC: OR 09:55
PROVIDERS: ATTEND Surgery
DX: R19.09 Other intra-abdominal and pelvic swelling, mass and lump (principal); K43.2 Incisional hernia without obstruction or gangrene; G47.33 Obstructive sleep apnea (adult) (pediatric); E03.9 Hypothyroidism, unspecified; E11.9 Type 2 diabetes mellitus without complications; M06.9 Rheumatoid arthritis, unspecified; Z01.810 Encounter for preprocedural cardiovascular examination; Z01.812 Encounter for preprocedural laboratory examination; Z01.818 Encounter for other preprocedural examination; Z20.828 Contact with and (suspected) exposure to other viral communicable diseases; Z68.41 Body mass index [BMI] 40.0-44.9, adult; Z85.3 Personal history of malignant neoplasm of breast; Z85.528 Personal history of other malignant neoplasm of kidney
CPT/HCPCS: 22900; 36415 ×2; 49560; 71046; 80048; 82948; 85025; 88304; 89060; 93005; J0690; J1100; J2405; J2704; U0002 ×2

== ENCOUNTER → 2020-05-01 | Outpatient (CLI) | payer MEDICARE ==
[~2020-05-01] MED LIST changes: -BUPIVACAINE HCL 0.5% INJ 30 ML VIAL INJ ONE; -CEFAZOLIN SOD 1 GM/NS 50ML 100 ML IV ONE; -DEXAMETHASONE SOD PHOS INJ 4 MG/ML VIAL ONE; -ONDANSETRON HCL INJ 2MG/ML 2ML 2 MG/ML VIAL ONE; -PROPOFOL IV EMULSION 10 MG/ML 20 ML VIAL ONE; -SEVOFLURANE INHAL SOLN 250 ML PEN BTL ONE
== END ==
LOC: SLEEP 19:53
PROVIDERS: ATTEND Internal Medicine
DX: G47.33 Obstructive sleep apnea (adult) (pediatric) (principal); Z20.822 Contact with and (suspected) exposure to COVID-19
CPT/HCPCS: 95810; U0002

== ENCOUNTER → 2020-08-14 | Outpatient (CLI) | payer MEDICARE | LOC: SLEEP 19:27 | PROVIDERS: ATTEND Internal Medicine | DX: G47.33 Obstructive sleep apnea (adult) (pediatric) (principal) | CPT/HCPCS: 95811 ==

== ENCOUNTER → 2020-08-27 | Outpatient (CLI) | payer MEDICARE ==
[2020-08-27 16:35] LABS: ABG HCO3 34 mmol/L (22-26); ABG PCO2 51 mmHg (35-45); ABG PH 7.42 (7.35-7.45); ABG PO2 70 mmHg (80-105)
[2020-08-27 16:36] LABS: ABG TCO2 35
== END ==
LOC: RESP 15:38
PROVIDERS: ATTEND Internal Medicine
DX: R06.00 Dyspnea, unspecified (principal)
CPT/HCPCS: 36415; 82805

== ENCOUNTER 2021-06-07 17:16 | Observation (INO) | payer MEDICARE ==
[~2021-06-07] VITALS: Ht 157.5 cm; Wt 108.9 kg
[2021-06-07] MEDS ORDERED: ONDANSETRON HCL INJ 2MG/ML 2ML 2 MG/ML VIAL IV STA (17:42)
[2021-06-07] MEDS ORDERED: Morphine 2mg Syringe 2 MG/ML SYR IV ONE (17:45)
[2021-06-07] MEDS ORDERED: KETOROLAC TROMETHAMINE 30 MG/ML VIAL IV STA (17:46)
[2021-06-07] MEDS ORDERED: ONDANSETRON HCL INJ 2MG/ML 2ML 2 MG/ML VIAL ONE (18:22)
[2021-06-07] MEDS ORDERED: Morphine 4mg Syringe 4 MG/ML INJ ONE (18:22)
[2021-06-07] MEDS ORDERED: KETOROLAC TROMETHAMINE 30 MG/ML VIAL ONE (18:22)
[2021-06-07] MEDS ORDERED: Morphine 4mg Syringe 4 MG/ML INJ IV ONE (19:00)
[2021-06-07 22:30] VITALS: BP 155/71
[2021-06-07] MEDS: Morphine 4mg Syringe 4 MG/ML INJ IV PRN (23:47)
[2021-06-07] MEDS: ONDANSETRON HCL INJ 2MG/ML 2ML 2 MG/ML VIAL IV PRN (23:47)
[2021-06-07] MEDS: SODIUM CHLORIDE 0.9% 1000ML 1,000 ML IV SCH (23:47)
[2021-06-08] VITALS (9 sets, daily range): BP systolic 137–170; BP diastolic 69–90
[2021-06-08] MEDS: SODIUM CHLORIDE 0.9% 1000ML 1,000 ML IV SCH ×3 (03:30→21:20)
[2021-06-08] MEDS: ONDANSETRON HCL INJ 2MG/ML 2ML 2 MG/ML VIAL IV PRN ×3 (04:38→13:46)
[2021-06-08] MEDS: Morphine 4mg Syringe 4 MG/ML INJ IV PRN ×3 (04:39→13:40)
[2021-06-08 09:08] LABS: BASOPHILS % 0.3 % (0.0-1.0); EOSINOPHILS % 0.5 % (0.0-6.0); HEMATOCRIT 37.3 % (34.2-44.1); HEMOGLOBIN 12.2 g/dL (12.0-16.0); LYMPHOCYTES % 13.4 % (18.0-39.1); MEAN CORPUSCULAR HEMOGLOBIN 34.1 pg (28-32); MEAN CORPUSCULAR HGB CONC 32.7 g/dL (31-35); MEAN CORPUSCULAR VOLUME 104.2 fL (81-99); MONOCYTES # (AUTO) 0.6 (0.2-0.8); MONOCYTES % 7.5 % (4.4-11.3); NEUTROPHILS # (AUTO) 5.9 (2.1-6.9); NEUTROPHILS % 77.4 % (38.7-80.0); PLATELET COUNT 199 x10e3/uL (140-360); RED BLOOD COUNT 3.58 x10e6/uL (3.6-5.1); RED CELL DISTRIBUTION WIDTH 13.3 % (11.7-14.4)
[2021-06-08 09:37] LABS: ANION GAP 9.6 mmol/L (8-16); CALCIUM 7.6 mg/dL (8.4-10.2); CREATININE, SERUM 0.86 mg/dL (0.57-1.11); POTASSIUM 3.6 mmol/L (3.5-5.1)
[2021-06-08] MEDS: GABAPENTIN 300 MG CAP PO SCH ×2 (10:31→21:20)
[2021-06-08] MEDS ORDERED: KETOROLAC TROMETHAMINE 30 MG/ML VIAL IM PRN (13:30)
[2021-06-08] MEDS: HYDROXYCHLOROQUINE SULFATE 200 MG TAB PO SCH (17:19)
[2021-06-08] MEDS: TIZANIDINE HCL 4 MG TAB PO SCH (17:19)
[2021-06-08] MEDS ORDERED: SIMVASTATIN 40 MG TAB PO SCH (21:00)
[2021-06-09 01:17] VITALS: BP 142/64
[2021-06-09 04:00] VITALS: BP 136/83
[2021-06-09] MEDS: SODIUM CHLORIDE 0.9% 1000ML 1,000 ML IV SCH ×2 (04:21→11:30)
[2021-06-09] MEDS ORDERED: LEVOTHYROXINE SODIUM 88 MCG TAB PO SCH (06:00)
[2021-06-09] MEDS ORDERED: NATEGLINIDE 120 MG TAB PO SCH (07:30)
[2021-06-09] MEDS: GABAPENTIN 300 MG CAP PO SCH (08:20)
[2021-06-09] MEDS: HYDROXYCHLOROQUINE SULFATE 200 MG TAB PO SCH (08:20)
[2021-06-09] MEDS: TIZANIDINE HCL 4 MG TAB PO SCH (08:20)
[2021-06-09 08:29] VITALS: BP 113/51
[2021-06-09] MEDS ORDERED: SPIRONOLACTONE 25 MG TAB PO SCH (09:00)
[2021-06-09] MEDS ORDERED: PANTOPRAZOLE SOD 40 MG TABEC PO SCH (09:00)
[2021-06-09] MEDS ORDERED: FUROSEMIDE 20 MG TAB PO SCH (09:00)
[2021-06-09] MEDS ORDERED: FOLIC ACID 1 MG TAB PO SCH (09:00)
[2021-06-09 09:23] VITALS: BP 113/51
[2021-06-09 12:09] VITALS: BP 111/50
== END 2021-06-09 14:17 | disposition home or self-care (01) ==
LOC: FSED 17:43 → ERHOLD 19:19 → MED/SURG 22:14
PROVIDERS: ADMIT Internal Medicine; ATTEND Internal Medicine
DX: G89.18 Other acute postprocedural pain (principal); R91.1 Solitary pulmonary nodule; I12.9 Hypertensive chronic kidney disease with stage 1 through stage 4 chronic kidney disease, or unspecified chronic kidney disease; N18.30 Chronic kidney disease, stage 3 unspecified; M06.9 Rheumatoid arthritis, unspecified; E03.9 Hypothyroidism, unspecified; R60.9 Edema, unspecified; Z66 Do not resuscitate; Z85.528 Personal history of other malignant neoplasm of kidney; Z85.3 Personal history of malignant neoplasm of breast; Z20.822 Contact with and (suspected) exposure to COVID-19; G56.02 Carpal tunnel syndrome, left upper limb; Z88.5 Allergy status to narcotic agent; Z88.2 Allergy status to sulfonamides; Z88.8 Allergy status to other drugs, medicaments and biological substances; E11.22 Type 2 diabetes mellitus with diabetic chronic kidney disease
CPT/HCPCS: 36415 ×2; 74176; 80048; 80053; 82948 ×3; 85025 ×2; 94799 ×2; 96374; 96376; 97110; 97116; 97139 ×2; 97161; 97530 ×2; 99251; 99284; G0378 ×3; J1885; J2270 ×2; J2405 ×2; J7030 ×3; S0164; U0002

== ENCOUNTER 2021-06-10 23:29 | Emergency (ER) | payer MEDICARE ==
[~2021-06-10] VITALS: Ht 157.5 cm; Wt 108.9 kg
[2021-06-11] MEDS ORDERED: KETOROLAC TROMETHAMINE 60 MG/2 ML VIAL IM ONE
[2021-06-11] MEDS ORDERED: Morphine 4mg Syringe 4 MG/ML INJ IM ONE
[2021-06-11] MEDS ORDERED: ONDANSETRON HCL 4 MG ORAL DISINTEGRATING TAB PO ONE
[2021-06-11 01:08] VITALS: BP 137/62
== END 2021-06-11 01:05 | disposition home or self-care (01) ==
LOC: ER 23:43
DX: G89.18 Other acute postprocedural pain (principal); M25.532 Pain in left wrist; I10 Essential (primary) hypertension; E11.9 Type 2 diabetes mellitus without complications; E78.5 Hyperlipidemia, unspecified; Z85.3 Personal history of malignant neoplasm of breast
CPT/HCPCS: 99283; J1885; J2270; Q0162

== ENCOUNTER 2024-06-01 08:31 | Emergency (ER) | payer MEDICARE ==
[~2024-06-01] VITALS: Ht 162.6 cm; Wt 84.4 kg
[2024-06-01 08:49] VITALS: RESP 18
[2024-06-01] MEDS: TRAMADOL HCL 50 MG TAB PO ONE (09:32)
[2024-06-01] MEDS: KETOROLAC TROMETHAMINE 30 MG/ML VIAL IM STA (09:33)
[2024-06-01 10:20] VITALS: PULSE 65; TEMP 97.7
[2024-06-01] MEDS ORDERED: ULTRAM 50MG50 MG PO (11:00)
[2024-06-01 11:48] VITALS: BP 142/77; PULSE 66; RESP 18; TEMP 97.7; O2SAT 100
== END 2024-06-01 11:52 | disposition home or self-care (01) ==
LOC: ER 08:49
DX: M25.562 Pain in left knee (principal); M54.42 Lumbago with sciatica, left side; M16.12 Unilateral primary osteoarthritis, left hip; I12.9 Hypertensive chronic kidney disease with stage 1 through stage 4 chronic kidney disease, or unspecified chronic kidney disease; E11.22 Type 2 diabetes mellitus with diabetic chronic kidney disease; N18.9 Chronic kidney disease, unspecified; E78.5 Hyperlipidemia, unspecified; Z85.3 Personal history of malignant neoplasm of breast
CPT/HCPCS: 72131; 73700; 99284; J1885

== ENCOUNTER 2024-07-10 06:26 | Observation (INO) | payer MEDICARE ==
[~2024-07-10] VITALS: Ht 157.5 cm; Wt 77.6 kg
[~2024-07-10 06:26] MED LIST changes: +MULTI-VITAMIN1 EACH PO; +OZEMPIC0.25 MG/02 SC
[2024-07-10] MEDS: DEXAMETHASONE SOD PHOS 10 MG/1 ML VIAL ONE (06:35)
[2024-07-10] MEDS: GABAPENTIN 300 MG CAP ONE (06:35)
[2024-07-10] MEDS: LACTATED RINGER'S 1,000 ML ONE (06:35)
[2024-07-10] MEDS: CELECOXIB 200 MG CAP ONE (06:36)
[2024-07-10] MEDS: CEFAZOLIN SODIUM 2 GM ONE (06:36)
[2024-07-10] MEDS ORDERED: PROPOFOL IV EMULSION 10 MG/ML 20 ML VIAL ONE (07:55)
[2024-07-10] MEDS ORDERED: LIDOCAINE HCL 2% LOCAL INJ 5 ML SDV VIAL INJ ONE (07:55)
[2024-07-10] MEDS ORDERED: FENTANYL CITRATE/PF 100MCG/2 ML INJ ONE ×2 (08:13→09:47)
[2024-07-10] MEDS ORDERED: BUPIVACAINE/EPI 0.5% 30ML SDV-MPF INJ ONE (08:14)
[2024-07-10] MEDS ORDERED: ONDANSETRON HCL INJ 2MG/ML 2ML 2 MG/ML VIAL ONE (09:13)
[2024-07-10] MEDS ORDERED: METOCLOPRAMIDE HCL 10 MG/2ML VIAL ONE (09:13)
[2024-07-10] MEDS ORDERED: PHENYLEPHRINE HCL 1% 10 MG/ML VIAL ONE (09:57)
[2024-07-10] MEDS ORDERED: HYDROCODONE/APAP 5MG-325MG TAB PO PRN (10:15)
[2024-07-10] MEDS ORDERED: DIPHENHYDRAMINE HCL INJ 50 MG/ML VIAL IV PRN (10:15)
[2024-07-10] MEDS ORDERED: ACETAMINOPHEN 650 MG SUPP PR PRN (10:15)
[2024-07-10] MEDS ORDERED: DOCUSATE SODIUM 100 MG CAP PO PRN (10:15)
[2024-07-10] MEDS ORDERED: TRAMADOL HCL 50 MG TAB PO PRN ×2 (10:15→18:00)
[2024-07-10] MEDS ORDERED: ONDANSETRON HCL INJ 2MG/ML 2ML 2 MG/ML VIAL IV PRN (10:15)
[2024-07-10] MEDS ORDERED: HYDROCODONE/APAP 7.5MG-325MG 1 EA TAB PO PRN (10:15)
[2024-07-10] MEDS: ROPIVACAINE/EPI/CLONIDINE/KET 50 ML SYRINGE INJ ONE (14:53)
[2024-07-10 15:33] VITALS: BP 106/51; PULSE 60; RESP 16; TEMP 97; O2SAT 100
[2024-07-10 15:42] VITALS: BP 106/51; PULSE 60; RESP 16; TEMP 97; O2SAT 100
[2024-07-10 15:48] VITALS: BP 106/51; PULSE 60; RESP 16; TEMP 97; O2SAT 100
[2024-07-10] MEDS: SODIUM CHLORIDE 0.9% 1000ML 1,000 ML IV SCH (16:34)
[2024-07-10] MEDS: CELECOXIB 200 MG CAP PO SCH (16:34)
[2024-07-10 20:00] VITALS: BP 106/51; PULSE 60; RESP 16; TEMP 97; O2SAT 100
[2024-07-10 20:15] VITALS: BP 114/51; PULSE 56; RESP 18; TEMP 97.9; O2SAT 100
[2024-07-10] MEDS ORDERED: DEXTROSE 50% SYRINGE 50 ML IV PRN ×2 (21:15)
[2024-07-10] MEDS: INSULIN LISPRO 100 UNIT/1 ML 3ML VIAL SQ SCH (21:23)
[2024-07-10] MEDS: ASPIRIN 325 MG TAB PO SCH (21:25)
[2024-07-10 22:37] VITALS: BP 93/48; PULSE 47; RESP 16; TEMP 98.5; O2SAT 94
[2024-07-11 03:09] VITALS: BP 104/54; PULSE 47; RESP 16; TEMP 98; O2SAT 97
[2024-07-11 04:09] VITALS: BP 118/62; PULSE 44
[2024-07-11] MEDS: GABAPENTIN 300 MG CAP PO SCH (04:30)
[2024-07-11] MEDS: LEVOTHYROXINE SODIUM 88 MCG TAB PO SCH (05:04)
[2024-07-11 05:33] LABS: HEMATOCRIT 32.9 % (34.2-44.1); HEMOGLOBIN 10.7 g/dL (12.0-16.0)
[2024-07-11 06:19] VITALS: PULSE 74; RESP 20; O2SAT 95
[2024-07-11 08:00] VITALS: BP 107/52; PULSE 50; RESP 20; O2SAT 98
[2024-07-11 08:30] VITALS: BP 107/52; PULSE 50; RESP 20; TEMP 98; O2SAT 98
[2024-07-11] MEDS: PANTOPRAZOLE SOD 40 MG TABEC PO SCH (08:47)
[2024-07-11] MEDS: FOLIC ACID 1 MG TAB PO SCH (08:47)
[2024-07-11] MEDS: SIMVASTATIN 40 MG TAB PO SCH (08:47)
[2024-07-11] MEDS ORDERED: ACETAMINOPHEN 1000 MG/100 ML IV PRN (10:15)
[2024-07-11 12:00] VITALS: BP 105/48; PULSE 51; RESP 18; O2SAT 100
== END 2024-07-11 14:10 | disposition home or self-care (01) ==
LOC: OR 06:26 → PACU V 10:11 → MED/SURG 14:36
PROVIDERS: ADMIT Specialist; ATTEND Specialist
DX: M16.12 Unilateral primary osteoarthritis, left hip (principal); E11.29 Type 2 diabetes mellitus with other diabetic kidney complication; N28.9 Disorder of kidney and ureter, unspecified; E07.9 Disorder of thyroid, unspecified; I10 Essential (primary) hypertension; M06.9 Rheumatoid arthritis, unspecified; K21.9 Gastro-esophageal reflux disease without esophagitis; D64.9 Anemia, unspecified; R00.1 Bradycardia, unspecified; E78.5 Hyperlipidemia, unspecified; E66.9 Obesity, unspecified; Z68.31 Body mass index [BMI] 31.0-31.9, adult
CPT/HCPCS: 27130; 36415 ×2; 72170; 82948 ×2; 85014; 85018; 86850; 86900; 94799; 97116 ×2; 97162; 97530 ×3; G0378 ×2; J0690 ×2; J1100; J2003; J2371; J2405; J2470; J2704; J2765; J3010; J7030 ×2; J7121

== ENCOUNTER 2024-08-20 13:15 | Inpatient (IN) | payer MEDICARE ==
[~2024-08-20] VITALS: Ht 165.1 cm; Wt 90.7 kg
[2024-08-20] MEDS ORDERED: POTASSIUM CHLO10 ME1 PO (14:00)
[2024-08-20] MEDS: FAMOTIDINE 20 MG/2 ML VIAL IV ONE (16:00)
[2024-08-20] MEDS: SODIUM CHLORIDE 0.9% 500ML 500 ML IV STA (16:00)
[2024-08-20] MEDS: ONDANSETRON HCL INJ 2MG/ML 2ML 2 MG/ML VIAL IV ONE (16:00)
[2024-08-20 16:37] VITALS: TEMP 98.4
[2024-08-20] MEDS ORDERED: ENEMA READY-TO133 ML RC (16:56)
[2024-08-20] MEDS ORDERED: ENALAPRILAT IV INJ 1.25 MG/ML VIAL IV PRN (17:30)
[2024-08-20] MEDS ORDERED: DIPHENHYDRAMINE HCL INJ 50 MG/ML VIAL IV PRN (17:30)
[2024-08-20] MEDS ORDERED: ONDANSETRON HCL INJ 2MG/ML 2ML 2 MG/ML VIAL IV PRN (17:30)
[2024-08-20] MEDS: ACETAMINOPHEN 325 MG TAB PO PRN (18:33)
[2024-08-20 19:27] VITALS: PULSE 69; RESP 18
[2024-08-20 20:41] VITALS: BP 116/48; PULSE 63; RESP 20; TEMP 97.8; O2SAT 100
[2024-08-20] MEDS: SOD PHOSPHATE/SOD BIPHOSPHATE ENEMA 132 ML BTL PR SCH (21:52)
[2024-08-20] MEDS: PEG (High)/E-LYTE SOLN 4,000 ML BTL PO SCH (21:52)
[2024-08-20] MEDS: LACTATED RINGER'S 1,000 ML IV SCH (21:52)
[2024-08-20] MEDS ORDERED: ULTRAM 50MG50 MG PO (22:06)
[2024-08-20] MEDS ORDERED: GABAPENTIN100 MG PO (22:06)
[2024-08-20 22:07] VITALS: BP 116/48; PULSE 63; RESP 20; TEMP 97.8; O2SAT 100
[2024-08-20 22:19] VITALS: BP 116/48; PULSE 63; RESP 20; TEMP 97.8; O2SAT 100
[2024-08-20] MEDS ORDERED: NON-FORMULARY MEDICATION (Semaglutide (Ozempic) 0.5 MG) SC SCH (23:00)
[2024-08-20 23:04] VITALS: BP 116/46; PULSE 68; RESP 18; TEMP 97.8; O2SAT 97
[2024-08-20] MEDS: TRAMADOL HCL 50 MG TAB PO PRN (23:20)
[2024-08-20] MEDS: GABAPENTIN 100 MG CAP PO ONE (23:20)
[2024-08-21 05:45] LABS: EOSINOPHILS # (AUTO) 0.1 (0.0-0.4); EOSINOPHILS % 1.7 % (0.0-6.0); HEMATOCRIT 26.9 % (34.2-44.1); HEMOGLOBIN 8.5 g/dL (12.0-16.0); LYMPHOCYTES # (AUTO) 1.1 (1.0-3.2); LYMPHOCYTES % 19.9 % (18.0-39.1); MEAN CORPUSCULAR HEMOGLOBIN 33.6 pg (28-32); MEAN CORPUSCULAR HGB CONC 31.6 g/dL (31-35); MEAN CORPUSCULAR VOLUME 106.3 fL (81-99); MONOCYTES # (AUTO) 0.1 (0.2-0.8); MONOCYTES % 1.3 % (4.4-11.3); NEUTROPHILS # (AUTO) 4.1 (2.1-6.9); NEUTROPHILS % 76.5 % (38.7-80.0); PLATELET COUNT 130 x10e3/uL (140-360); RED BLOOD COUNT 2.53 x10e6/uL (3.6-5.1); RED CELL DISTRIBUTION WIDTH 13.2 % (11.7-14.4); WHITE BLOOD COUNT 5.37 x10e3/uL (4.8-10.8)
[2024-08-21] MEDS: LEVOTHYROXINE SODIUM 88 MCG TAB PO SCH (05:54)
[2024-08-21 06:09] LABS: ANION GAP 15.8 mmol/L (8-16); CALCIUM 8.9 mg/dL (8.4-10.2); CREATININE, SERUM 1.07 mg/dL (0.57-1.11); POTASSIUM 3.8 mmol/L (3.5-5.1)
[2024-08-21] MEDS: GABAPENTIN 100 MG CAP PO SCH (08:32)
[2024-08-21] MEDS: SIMVASTATIN 20 MG TAB PO SCH (08:32)
[2024-08-21] MEDS: FOLIC ACID 1 MG TAB PO SCH (08:32)
[2024-08-21] MEDS: PANTOPRAZOLE SOD 40 MG TABEC PO SCH (08:33)
[2024-08-21] MEDS: POTASSIUM CHLORIDE 10MEQ EA PO SCH (08:33)
[2024-08-21] MEDS: FAMOTIDINE 20 MG TAB PO SCH (08:33)
[2024-08-21] MEDS: SPIRONOLACTONE 25 MG TAB PO SCH (08:34)
[2024-08-21] MEDS ORDERED: FUROSEMIDE 40 MG TAB PO SCH (09:00)
[2024-08-21] MEDS ORDERED: METHOTREXATE SOD 2.5 MG TAB PO SCH (09:00)
[2024-08-21 09:36] VITALS: BP 124/57; PULSE 71; RESP 16; TEMP 97.6; O2SAT 97
[2024-08-21] MEDS ORDERED: BISACODYL 10 MG SUPP PR PRN (09:45)
[2024-08-21 10:16] VITALS: BP 124/57; PULSE 71; RESP 16; TEMP 97.6; O2SAT 97
[2024-08-21] MEDS: SENNA-S TABLET PO SCH (11:33)
[2024-08-21] MEDS: BISACODYL 10 MG SUPP PR ONE (11:33)
[2024-08-21] MEDS: FUROSEMIDE INJ 10 MG/ML 4 ML VIAL IV SCH (11:34)
[2024-08-21] MEDS: Morphine 4mg INJECTION 4 MG/ML INJ IV PRN (13:54)
[2024-08-21] MEDS: ENOXAPARIN SOD INJ 40 MG/0.4 ML SYR SC SCH (17:53)
[2024-08-21 20:00] VITALS: BP 106/68; PULSE 62; RESP 18; TEMP 97.6; O2SAT 99
[2024-08-21 20:41] VITALS: BP 106/68; PULSE 62; RESP 18; TEMP 97.6; O2SAT 99
[2024-08-21 21:00] VITALS: BP 110/78; PULSE 18; RESP 20; TEMP 98.3; O2SAT 99
[2024-08-22] VITALS (8 sets, daily range): BP systolic 98–117; BP diastolic 45–56; PULSE 65–90; RESP 17–20; TEMP 98.1–98.7; O2SAT 93–100
[2024-08-22] MEDS: ONDANSETRON HCL INJ 2MG/ML 2ML 2 MG/ML VIAL IV PRN (07:02)
[2024-08-22 10:02] LABS: BILIRUBIN,URINE NEGATIVE (NEGATIVE); CLARITY,URINE SL CLOUDY (CLEAR); COLOR,URINE YELLOW (YELLOW); GLUCOSE, URINE NEGATIVE (NEGATIVE); KETONES,URINE NEGATIVE (NEGATIVE); LEUKOCYTE ESTERASE ,URINE NEGATIVE (NEGATIVE); NITRITE,URINE NEGATIVE (NEGATIVE); PH,URINE 5.5 (5 - 7); PROTEIN,URINE DIPSTICK 1+ (NEGATIVE); URINE UROBILINOGEN 0.2 mg/dL (0.2 - 1)
[2024-08-22 10:09] LABS: BACTERIA,URINE MANY /HPF; EPITHELIAL CELLS,URINE MODERATE /LPF; RBC,URINE 21-50 /HPF (0-5)
[2024-08-22] MEDS: SODIUM CHLORIDE 0.9% 250ML 250 ML ONE (10:09)
[2024-08-22] MEDS ORDERED: PROPOFOL IV EMULSION 10 MG/ML 20 ML VIAL ONE (15:12)
[2024-08-22] MEDS ORDERED: LIDOCAINE HCL 2% LOCAL INJ 5 ML SDV VIAL INJ ONE (15:12)
[2024-08-22] MEDS: TRAMADOL HCL 50 MG TAB PO PRN (19:23)
[2024-08-23] VITALS (10 sets, daily range): BP systolic 98–132; BP diastolic 44–66; PULSE 61–86; RESP 18–20; TEMP 98.1–100; O2SAT 93–100
[2024-08-23 10:50] LABS: EOSINOPHILS # (AUTO) 0.1 (0.0-0.4); HEMATOCRIT 26.2 % (34.2-44.1); HEMOGLOBIN 8.3 g/dL (12.0-16.0); LYMPHOCYTES # (AUTO) 0.9 (1.0-3.2); LYMPHOCYTES % 25.4 % (18.0-39.1); MEAN CORPUSCULAR HEMOGLOBIN 33.7 pg (28-32); MEAN CORPUSCULAR HGB CONC 31.7 g/dL (31-35); MEAN CORPUSCULAR VOLUME 106.5 fL (81-99); MONOCYTES # (AUTO) 0.2 (0.2-0.8); MONOCYTES % 4.1 % (4.4-11.3); NEUTROPHILS # (AUTO) 2.5 (2.1-6.9); PLATELET COUNT 116 x10e3/uL (140-360); RED BLOOD COUNT 2.46 x10e6/uL (3.6-5.1); RED CELL DISTRIBUTION WIDTH 12.9 % (11.7-14.4)
[2024-08-23 11:21] LABS: ANION GAP 14.8 mmol/L (8-16); CALCIUM 8.5 mg/dL (8.4-10.2); CREATININE, SERUM 1.12 mg/dL (0.57-1.11); POTASSIUM 3.8 mmol/L (3.5-5.1)
[2024-08-24] VITALS (10 sets, daily range): BP systolic 115–152; BP diastolic 51–71; PULSE 63–78; RESP 17–21; TEMP 97.6–98.2; O2SAT 96–100
[2024-08-24 06:14] LABS: BASOPHILS % 0.3 % (0.0-1.0); EOSINOPHILS # (AUTO) 0.2 (0.0-0.4); EOSINOPHILS % 5.1 % (0.0-6.0); HEMATOCRIT 25.2 % (34.2-44.1); HEMOGLOBIN 8.1 g/dL (12.0-16.0); LYMPHOCYTES # (AUTO) 1.2 (1.0-3.2); LYMPHOCYTES % 32.6 % (18.0-39.1); MEAN CORPUSCULAR HEMOGLOBIN 33.8 pg (28-32); MEAN CORPUSCULAR HGB CONC 32.1 g/dL (31-35); MONOCYTES # (AUTO) 0.2 (0.2-0.8); MONOCYTES % 6.5 % (4.4-11.3); NEUTROPHILS # (AUTO) 1.9 (2.1-6.9); NEUTROPHILS % 54.9 % (38.7-80.0); PLATELET COUNT 99 x10e3/uL (140-360); WHITE BLOOD COUNT 3.53 x10e3/uL (4.8-10.8)
[2024-08-24 06:57] LABS: ANION GAP 13.8 mmol/L (8-16); CALCIUM 8.6 mg/dL (8.4-10.2); CREATININE, SERUM 0.88 mg/dL (0.57-1.11); POTASSIUM 3.8 mmol/L (3.5-5.1)
[2024-08-25] VITALS (9 sets, daily range): BP systolic 119–142; BP diastolic 48–68; PULSE 68–75; RESP 17–18; TEMP 98.1–98.6; O2SAT 95–100
[2024-08-25 06:21] LABS: EOSINOPHILS # (AUTO) 0.2 (0.0-0.4); HEMATOCRIT 26.8 % (34.2-44.1); HEMOGLOBIN 8.7 g/dL (12.0-16.0); LYMPHOCYTES # (AUTO) 1.4 (1.0-3.2); LYMPHOCYTES % 21.5 % (18.0-39.1); MEAN CORPUSCULAR HEMOGLOBIN 33.7 pg (28-32); MEAN CORPUSCULAR HGB CONC 32.5 g/dL (31-35); MEAN CORPUSCULAR VOLUME 103.9 fL (81-99); MONOCYTES # (AUTO) 0.4 (0.2-0.8); NEUTROPHILS # (AUTO) 4.4 (2.1-6.9); PLATELET COUNT 97 x10e3/uL (140-360); RED BLOOD COUNT 2.58 x10e6/uL (3.6-5.1); RED CELL DISTRIBUTION WIDTH 13.3 % (11.7-14.4); WHITE BLOOD COUNT 6.34 x10e3/uL (4.8-10.8)
[2024-08-25 06:35] LABS: ANION GAP 14.7 mmol/L (8-16); CALCIUM 8.7 mg/dL (8.4-10.2); CREATININE, SERUM 0.9 mg/dL (0.57-1.11); POTASSIUM 3.7 mmol/L (3.5-5.1)
[2024-08-26] VITALS (12 sets, daily range): BP systolic 124–153; BP diastolic 56–72; PULSE 71–82; RESP 16–22; TEMP 98.4–99.5; O2SAT 94–100
[2024-08-27] VITALS: BP 128/60; PULSE 83; RESP 18; TEMP 98.6; O2SAT 94
[2024-08-27] MEDS ORDERED: POLYETHYLENE GLYCOL 3350 17 GM PACK PO ONE (00:45)
[2024-08-27] MEDS: POLYETHYLENE GLYCOL 3350 17 GM PACK PO ONE (00:47)
[2024-08-27 04:00] VITALS: BP 124/55; PULSE 74; RESP 18; TEMP 97.9; O2SAT 95
[2024-08-27 08:00] VITALS: BP 129/63; PULSE 80; RESP 17; TEMP 98.8; O2SAT 93
[2024-08-27] MEDS: POLYETHYLENE GLYCOL 3350 17 GM PACK PO SCH (08:34)
[2024-08-27 08:59] VITALS: PULSE 4; RESP 22; O2SAT 95
[2024-08-27] MEDS ORDERED: POLYETHYLENE GLYCOL 3350 17 GM PACK PO SCH (09:00)
[2024-08-27] MEDS ORDERED: METHOTREXATE SOD 2.5 MG TAB PO SCH (09:00)
[2024-08-27 09:20] VITALS: BP 129/63; PULSE 81; RESP 17; TEMP 98.8; O2SAT 93
[2024-08-27] MEDS ORDERED: MAGNESIUM HYDROXIDE 30 ML UDC PO PRN (09:30)
[2024-08-27] MEDS: BISACODYL 5 MG TAB EC PO ONE (10:27)
[2024-08-27] MEDS: MAGNESIUM HYDROXIDE 30 ML UDC PO ONE (10:28)
[2024-08-27 12:00] VITALS: BP 119/66; PULSE 79; RESP 17; TEMP 99.5; O2SAT 100
[2024-08-27] MEDS: BISACODYL 10 MG SUPP PR ONE (12:54)
[2024-08-27] MEDS ORDERED: ONDANSETRON HCL 4 MG ORAL DISINTEGRATING TAB PO PRN (13:15)
[2024-08-27] MEDS ORDERED: PANTOPRAZOLE SOD 40 MG TABEC PO SCH (16:30)
[2024-08-28] MEDS ORDERED: BALSAM PERU/CASTOR OIL 28.35 GM OINT...G. TP SCH (09:00)
[2024-08-28] MEDS ORDERED: FUROSEMIDE 40 MG TAB PO SCH (09:00)
[2024-08-28] MEDS ORDERED: ATORVASTATIN 10 MG TAB PO SCH (21:00)
== END 2024-08-27 16:57 | DRG 392 ==
LOC: FSED 13:30 → ERHOLD 17:28 → MED/SURG2 20:36 → OBSVTOIN 08-21 09:20 → MED/SURG3 08-21 20:38 → MED/SURG2 08-27 16:47
PROVIDERS: ADMIT Internal Medicine; ATTEND Internal Medicine
PROC: 0T9B70Z Drainage of Bladder with Drainage Device, Via Natural or Artificial Opening (ICD-10-PCS; 2024-08-21)
PROC: 0DB78ZX Excision of Stomach, Pylorus, Via Natural or Artificial Opening Endoscopic, Diagnostic (ICD-10-PCS; 2024-08-22)
PROC: 0D748ZZ Dilation of Esophagogastric Junction, Via Natural or Artificial Opening Endoscopic (ICD-10-PCS; principal; 2024-08-22 15:17)
PROC: 0DB68ZX Excision of Stomach, Via Natural or Artificial Opening Endoscopic, Diagnostic (ICD-10-PCS; 2024-08-22 15:17)
DX: R13.10 Dysphagia, unspecified (principal); D68.9 Coagulation defect, unspecified; N39.0 Urinary tract infection, site not specified; K22.2 Esophageal obstruction; E11.9 Type 2 diabetes mellitus without complications; D64.9 Anemia, unspecified; E78.5 Hyperlipidemia, unspecified; E03.9 Hypothyroidism, unspecified; I25.10 Atherosclerotic heart disease of native coronary artery without angina pectoris; K20.90 Esophagitis, unspecified without bleeding; K29.70 Gastritis, unspecified, without bleeding; R33.9 Retention of urine, unspecified; K59.00 Constipation, unspecified; M06.9 Rheumatoid arthritis, unspecified; E66.9 Obesity, unspecified; Z68.33 Body mass index [BMI] 33.0-33.9, adult; Z59.6 Low income; Z79.890 Hormone replacement therapy; Z79.85 Long-term (current) use of injectable non-insulin antidiabetic drugs; Z90.49 Acquired absence of other specified parts of digestive tract; Z90.710 Acquired absence of both cervix and uterus; Z90.10 Acquired absence of unspecified breast and nipple; Z88.5 Allergy status to narcotic agent; Z88.8 Allergy status to other drugs, medicaments and biological substances
CPT/HCPCS: 36415; 43239; 43450; 71260; 74022; 74177; 80048; 80053; 81001; 81003; 82607; 82728; 82746; 82948; 83540; 84466; 85025; 85045; 88305; 88342; 94799; 96374; 96375; 99252; 99284; G0378; J0696; J1308; J1650; J1938; J2003; J2270; J2405; J2470; J7040; J7050